=== PATIENT | male | born 1965 | race Caucasian/White ===

== ENCOUNTER 2020-05-08 18:26 | Emergency (ER) | payer MEDICAID, SELFPAY ==
--- NOTE | ~2020-05-08 | CT_ITS ---
EXAMINATION: CT abdomen pelvis w con DATE: 05/08/2020 21:45 INDICATION: Right mid abdominal pain. TECHNIQUE: Computed tomography (CT) of the abdomen and pelvis was performed with 100 mL Omnipaque-350 intravenous contrast. Automated exposure control and iterative reconstruction technique were employe d. The dose-length product was 443.76 mGy-cm. COMPARISON: None FINDINGS: Lung bases are clear. Heart size is normal. No pericardial or pleural effusion. Small sliding-type hi atal hernia with wall thickening in the distal esophagus which may be related to reflux. Subtle focal hepatic steatosis at the ligamentum teres. Gallbladder, spleen, pancreas, right kidney and right adr enal gland are normal. Unchanged 11 mm left adrenal adenoma with characteristic low attenuation on pr ior CT. 2.9 cm left renal cyst. Bowels including the appendix are normal. Bladder is distended but ot herwise unremarkable. No free intraperitoneal gas or fluid. No pathologically enlarged abdominal or p elvic lymphadenopathy. There is calcified atherosclerosis of the aorta and many of the other arteries . Mild thoracolumbar spondylosis. Mild to moderate lateral hip osteoarthritis. IMPRESSION: 1. No acute intra-abdominal/pelvic process. 2. Small sliding-type hiatal hernia with wall thickening in the distal esophagus which could be relat ed to reflux. Reviewed, dictated and finalized at location A. IMPRESSION: 1. No acute intra-abdominal/pelvic process. 2. Small sliding-type hiatal hernia with wall thickening in the distal esophagu s which could be related to reflux.
[2020-05-08 18:39] VITALS: BP 105/73; PULSE 88; RESP 16; TEMP 36.6; O2SAT 97
[2020-05-08 19:00] LABS: Basophils Percent Auto 0.5 % (0.2-1.2); Eosinophils Absolute Auto 0.1 K/mm3 (0-0.3); Eosinophils Percent Auto 1.1 % (0-4.4); Hematocrit 38.2 % (42.0-52.0); Hemoglobin 14.2 g/dL (14.0-18.0); Immature Granulocyte Absolute 0.02 K/mm3 (0.00-0.031); Immature Granulocyte Percent A 0.3 % (0-0.5); Lymphocytes Absolute Auto 2.75 K/mm3 (0.9-3.2); Lymphocytes Percent Auto 37.3 % (18.3-44.2); Mean Corpuscular HGB Conc 37.2 g/dl (32-36); Mean Corpuscular Hemoglobin 34.1 pg (26-34); Mean Corpuscular Volume 91.8 fl (80-100); Mean Platelet Volume 7.6 fl (7.4-10.4); Monocytes Absolute Auto 0.8 K/mm3 (0.1-0.6); Monocytes Percent Auto 10.7 % (2.6-8.5); Neutrophils Absolute Auto 3.7 K/mm3 (1.3-6.7); Neutrophils Percent Auto 50.1 % (45.5-73.1); Platelet Count Result 285 k/mm3 (150-375); Red Blood Count 4.16 M/mm3 (4.6-6.20); Red Cell Distribution Width 12.8 % (11.5-14.5); White Blood Count 7.4 K/mm3 (4.5-10.0)
[2020-05-08 19:03] LABS: Add Urine Microscopic? NO; Appearance Urine Clear (Clear); Bilirubin Urine Negative (Negative); Blood Urine Negative (Negative); Color Urine Colorless (Yellow); Glucose Urine UA Negative (Negative); Ketones Urine Negative (Negative); Leukocyte Esterase Ur Negative LEU/UL (Negative); Nitrate Urine Negative (Negative); Protein Urine Negative (Negative); Urobilinogen Urine Negative mg/dL (<2.0)
[2020-05-08 19:06] LABS: Specific Grav Ur 1.002 (1.001-1.035)
[2020-05-08 19:11] LABS: Alanine Aminotransferase 49 U/L (4-50); Albumin Level 4.7 g/dL (3.5-5.1); Alkaline Phosphatase 68 U/L (38-126); Anion Gap 12 mmol/L (8-16); Aspartate Amino Transferase 52 U/L (17-59); Bilirubin,Total 0.5 mg/dL (0.2-1.3); Blood Urea Nitrogen 4 mg/dL (9-20); Calcium 8.8 mg/dL (8.4-10.2); Carbon Dioxide 26 mmol/L (22-30); Chloride 88 mmol/L (98-107); Estimated CRCL calculation 137 ml/min; Estimated Glomerular Filt Rate > 60; Glucose 108 mg/dL (75-110); Lipase 229 U/L (23-300); Potassium 4.1 mmol/L (3.4-5.0); Sodium 126 mmol/L (137-145)
[2020-05-08] MEDS: MORPHINE SULFATE (*CRX) 4 MG/ML INJ IV PUSH (20:51)
--- NOTE | 2020-05-08 21:17 | ED.GENADULT ---
HPI - General Adult General Chief complaint: Nausea/Vomiting/Diarrhea Stated complaint: n/v/d Time Seen by Provider: 05/08/20 20:08 History of Present Illness HPI narrative: Patient is a 54-year-old male who presents the ER with abdominal pain as well as diarrhea for the last week. Has 3 loose stools a day and vomits 1 time a day. Reports he is recently completed alcohol rehab and then began drinking alcohol again. Symptoms began after he started drinking again. No fevers or chills or sweats. No blood in his stool or emesis. Reports pain to his right mid abdomen and right side. It is accompanied by the diarrhea. No previous history of diverticulitis or appendicitis. Related Data Home Medications Medication Instructions Recorded Confirmed hydrochlorothiazide 25 mg PO DAILY 05/08/20 05/08/20 lisinopril 40 mg PO DAILY 05/08/20 05/08/20 Allergies Allergy/AdvReac Type Severity Reaction Status Date / Time No Known Allergies Allergy Unverified 01/04/16 07:07 Review of Systems Review of Systems: All systems reviewed & are unremarkable except as noted in HPI and below Constitutional: Constitutional: Denies chills, Denies fever(s) and Denies weakness ENT: Denies nasal congestion and Denies sore throat Cardiovascular: Cardiovascular: Denies chest pain, Denies rapid heart rate and Denies radiating jaw, neck or arm pain Gastrointestinal: Gastrointestinal: Reports abdominal pain, Reports diarrhea, Reports nausea and Reports vomiting Genitourinary: Genitourinary: Denies dysuria and Denies urinary frequency PMFSH Past Medical History Medical History (Updated 05/08/20 @ 23:01 by Les Mayorga MD) Hypertension Surgical History Surgical History (Updated 05/08/20 @ 21:18 by Les Mayorga MD) H/O inguinal hernia repair Social History Social History (Updated 05/08/20 @ 21:19 by Les Mayorga MD) Alcohol intake: current Exam Narrative: Exam Narrative: GENERAL: Well-appearing, well-nourished, and in no acute distress. HEAD: Normocephalic, atraumatic. ENT: Mucous membranes moist. Normal-appearing right TM. Left ear with significant cerumen. CHEST: Clear to auscultation. No respiratory distress. HEART: Regular rate and rhythm. Normal peripheral pulses. ABDOMEN: Soft, right mid abdominal tenderness as well as epigastric tenderness without guarding, nondistended. EXTREMITIES: Normal range of motion. No edema. SKIN: Warm, dry, no rash. NEURO: Alert and oriented x3. PSYCH: Normal mood and affect. Course Course Emergency Course: Unremarkable evaluation. Patient walked out of the ER before receiving discharge paperwork. Patient was able to completely empty bladder. Vital Signs Vital signs: Vital Signs Temperature 97.9 F 05/08/20 18:39 Pulse Rate 88 05/08/20 18:39 Respiratory Rate 16 05/08/20 18:39 Blood Pressure 105/73 05/08/20 18:39 Pulse Oximetry 97 05/08/20 18:39 Temperature 97.9 F 05/08/20 18:39 Pulse Rate 78 05/08/20 22:31 Respiratory Rate 18 05/08/20 22:31 Blood Pressure 122/72 05/08/20 22:31 Pulse Oximetry 99 05/08/20 22:31 Medical Decision Making Vital Signs Vital Signs: Vital Signs Temperature 97.9 F 05/08/20 18:39 Pulse Rate 88 05/08/20 18:39 Respiratory Rate 16 05/08/20 18:39 Blood Pressure 105/73 05/08/20 18:39 Pulse Oximetry 97 05/08/20 18:39 Temperature 97.9 F 05/08/20 18:39 Pulse Rate 78 05/08/20 22:31 Respiratory Rate 18 05/08/20 22:31 Blood Pressure 122/72 05/08/20 22:31 Pulse Oximetry 99 05/08/20 22:31 Lab Data Result diagrams: 05/08/20 18:50 05/08/20 18:50 Labs: Lab Results 05/08/20 05/08/20 05/08/20 Range/Units 18:50 18:50 18:50 WBC 7.4 (4.5-10.0) K/mm3 RBC 4.16 L (4.6-6.20) M/mm3 Hgb 14.2 (14.0-18.0) g/dL Hct 38.2 L (42.0-52.0) % MCV 91.8 (80-100) fl MCH 34.1 H (26-34) pg MCHC 37.2 H (32-36) g/dl RDW 12.8
[2020-05-08 22:31] VITALS: BP 122/72; PULSE 78; RESP 18; O2SAT 99
== END 2020-05-08 23:05 | disposition left against medical advice (07) ==
PROVIDERS: Emergency Medicine; Emergency Provider Emergency Medicine; PCP Family Medicine Adolescent Medicine
DX: R19.7 Diarrhea, unspecified (principal); R10.9 Unspecified abdominal pain; K44.9 Diaphragmatic hernia without obstruction or gangrene; I10 Essential (primary) hypertension
CPT/HCPCS: 36415; 74177; 80053; 81003; 83690; 85025; 96374; 99284; J2270; Q9967

== ENCOUNTER 2020-07-10 21:30 | Observation (INO) | payer OTHER, SELFPAY ==
--- NOTE | ~2020-07-10 | XR_ITS ---
EXAMINATION: XR chest 1V portable DATE: 07/10/2020 22:02 INDICATION: 2 weeks of chest pain. Numbness in the mouth. TECHNIQUE: frontal view of the chest was obtained. COMPARISON: Chest radiograph and CT dated 01/04/2016 FINDINGS: Mild emphysema better appreciated on prior CT with unchanged mild biapical pleural-parenchymal scarri ng. No new airspace opacities, pulmonary edema, pleural effusion or pneumothorax. The cardiomediastin al silhouette is normal. Mild thoracic spondylosis. IMPRESSION: 1. No acute cardiopulmonary disease. Reviewed, dictated and finalized at location A. FORMULA WORKER
[2020-07-10 21:37] VITALS: BP 127/75; PULSE 90; RESP 18; TEMP 36.7; O2SAT 96
[2020-07-10 21:49] LABS: Basophils Percent Auto 0.4 % (0.2-1.2); Eosinophils Absolute Auto 0.2 K/mm3 (0-0.3); Hematocrit 37.7 % (42.0-52.0); Hemoglobin 13.9 g/dL (14.0-18.0); Immature Granulocyte Absolute 0.03 K/mm3 (0.00-0.031); Immature Granulocyte Percent A 0.4 % (0-0.5); Lymphocytes Absolute Auto 2.58 K/mm3 (0.9-3.2); Lymphocytes Percent Auto 34.6 % (18.3-44.2); Mean Corpuscular HGB Conc 36.9 g/dl (32-36); Mean Corpuscular Hemoglobin 35.3 pg (26-34); Mean Corpuscular Volume 95.7 fl (80-100); Mean Platelet Volume 7.6 fl (7.4-10.4); Monocytes Absolute Auto 0.7 K/mm3 (0.1-0.6); Monocytes Percent Auto 9.5 % (2.6-8.5); Neutrophils Percent Auto 53.1 % (45.5-73.1); Platelet Count Result 333 k/mm3 (150-375); Red Blood Count 3.94 M/mm3 (4.6-6.20); Red Cell Distribution Width 13.4 % (11.5-14.5); White Blood Count 7.5 K/mm3 (4.5-10.0)
--- NOTE | 2020-07-10 21:56 | ED.CHESTPAIN ---
HPI - Chest Pain General Chief Complaint: Chest Pain Stated Complaint: chest pain Time Seen by Provider: 07/10/20 21:39 Source: patient Mode of arrival: ambulatory Limitations: no limitations History of Present Illness HPI narrative: Patient is a 51-year-old male complaining of chest pain, midsternal, tightness, 5 out of 10, nonradiating, intermittent started approximately 2 weeks ago. Patient denies any shortness of breath, abdominal pain, nausea, vomiting, fever or chills. Patient does admit to drinking every day, approximately 12 beers/day. Related Data Home Medications Medication Instructions Recorded Confirmed hydrochlorothiazide 25 mg PO DAILY 05/08/20 05/08/20 lisinopril 40 mg PO DAILY 05/08/20 05/08/20 Allergies Allergy/AdvReac Type Severity Reaction Status Date / Time No Known Allergies Allergy Unverified 01/04/16 07:07 Review of Systems Review of Systems: All systems reviewed & are unremarkable except as noted in HPI and below Constitutional: Constitutional: Denies body ache(s), Denies chills, Denies excessive sweating, Denies fatigue, Denies fever(s), Denies headache(s), Denies lethargy, Denies malaise, Denies weakness and Denies weight loss Eyes: Eyes: Denies blurry vision, Denies change in vision and Denies loss of vision ENT: Denies dizziness, Denies ear discharge, Denies headache(s), Denies lip swelling, Denies epistaxis, Denies nasal congestion, Denies neck pain, Denies throat swelling and Denies tongue swelling Cardiovascular: Cardiovascular: Denies diaphoresis, Denies rapid heart rate, Denies edema, Denies irregular heart rhythm, Denies lightheadedness, Denies palpitations, Denies dyspnea and Denies dyspnea on exertion Respiratory: Respiratory: Denies chest congestion, Denies cough, Denies hemoptysis, Denies dyspnea and Denies dyspnea on exertion Gastrointestinal: Gastrointestinal: Denies abdominal pain, Denies melena, Denies hematochezia, Denies diarrhea, Denies nausea, Denies vomiting and Denies hematemesis Musculoskeletal: Musculoskeletal: Denies abnormal gait, Denies deformity, Denies joint swelling, Denies limited range of motion, Denies neck pain and Denies numbness Neurologic: Denies Abnormal speech present, Denies abnormal gait, Denies confusion, Denies dizziness, Denies headache(s), Denies focal weakness, Denies loss of vision, Denies numbness, Denies Other visual disturbances, Denies Sensory deficit (Neuro) and Denies weakness Psychiatric: Psychiatric: Denies confusion, Denies depression, Denies auditory hallucinations, Denies homicidal ideation and Denies suicidal ideation Endocrine: Endocrine: Denies cold intolerance, Denies excessive sweating, Denies fatigue, Denies heat intolerance and Denies palpitations Hematologic/Lymphatic: Hematologic/Lymphatic: Denies easy bleeding and Denies easy bruising Allergic/Immunologic: Allergic/Immunologic: Denies lip swelling, Denies throat swelling and Denies tongue swelling PMFSH Past Medical History Medical History Hypertension Surgical History Surgical History (Updated 05/08/20 @ 21:18 by Les Mayorga MD) H/O inguinal hernia repair Social History Social History Alcohol intake: current Exam Const: General: cooperative, healthy appearing, comfortable, no acute distress, well developed, alert and awake; No confusion Orientation/consciousness: oriented to person, oriented to place, oriented to time, patient oriented x3 and No confusion Limitations: no limitations HENMT: Head: normal to inspection, normocephalic and atraumatic Ears: hearing grossly normal bilaterally, TM normal on the right and TM normal on the left General nose exam: Normal external nose present, Normal nares present and No nasal discharge present Face and sinus: normal facial exam Mouth: Yes Normal oral and palatal mucosa present, Yes lip normal, Yes ton
[2020-07-10 22:13] LABS: Troponin I < 0.012 ng/mL (0.000-0.034)
[2020-07-10 22:17] LABS: INR 0.9; Partial Thromboplastin Time 24.4 SECONDS (22.3-36.8)
[2020-07-10 22:33] LABS: Alanine Aminotransferase 80 U/L (4-50); Albumin Level 4.1 g/dL (3.5-5.1); Alkaline Phosphatase 66 U/L (38-126); Anion Gap 10 mmol/L (8-16); Aspartate Amino Transferase 83 U/L (17-59); Bilirubin,Total 0.3 mg/dL (0.2-1.3); Blood Urea Nitrogen 7 mg/dL (9-20); Calcium 8.6 mg/dL (8.4-10.2); Carbon Dioxide 24 mmol/L (22-30); Chloride 86 mmol/L (98-107); Estimated CRCL calculation 115 ml/min; Estimated Glomerular Filt Rate > 60; Glucose 89 mg/dL (75-110); Potassium 3.8 mmol/L (3.4-5.0); Sodium 120 mmol/L (137-145)
[2020-07-10] MEDS: NITROGLYCERIN OINTMENT 1 INCH DOSE TRANSDERM (23:05)
[2020-07-10] MEDS: THIAMINE HCL INJ 100 MG, FOLIC ACID INJ 1 MG, MULTIVITAMINS-12 INJ VIAL 1 5 ML, MULTIVI... IV CONT (23:34)
[2020-07-11] VITALS (8 sets, daily range): BP systolic 117–138; BP diastolic 57–79; PULSE 78–99; RESP 16; TEMP 36.5–36.8; O2SAT 95–100; BMI 23.8
--- NOTE | 2020-07-11 02:15 | PC.NURSE ---
Pt. arrives to [facility] via wheelchair from ED accompanied by KIKO Berman. Pt. connected to telemetry and oriented to unit. Pt. resting in bed comfortably at this time. VSS. Will continue to monitor pt.
[2020-07-11 02:30] LABS: Troponin I < 0.012 ng/mL (0.000-0.034)
[2020-07-11] MEDS: chlordiazePOXIDE (*CRX) 10 MG CAPSULE PO (02:41)
[2020-07-11 07:07] LABS: Troponin I < 0.012 ng/mL (0.000-0.034)
--- NOTE | 2020-07-11 08:28 | PC.NURSE ---
Patient notified of risks of leaving AMA. Kimberly ADAM notified. Follow up instructions given to patient. Patient signed AMA form.
--- NOTE | 2020-07-23 15:39 | PM.IMPN ---
Subjective Date/time seen: Patient was not seen. Patient left against medical advice on 07/11/20 prior to being seen.
== END 2020-07-11 08:33 | disposition left against medical advice (07) ==
LOC: ANHED 07-11 00:23 → ANHCPC 07-11 01:19
PROVIDERS: Admitting Provider Internal Medicine; Emergency Provider Emergency Medicine; PCP Family Medicine Adolescent Medicine; Visit Provider Internal Medicine
DX: R07.9 Chest pain, unspecified (principal); I10 Essential (primary) hypertension; E87.1 Hypo-osmolality and hyponatremia; F10.10 Alcohol abuse, uncomplicated
CPT/HCPCS: 36415; 71045; 80053; 84484; 85025; 85610; 85730; 96365; 99285; A9270; G0378; G0379; J3411; J3475; J7030

== ENCOUNTER 2021-06-24 09:59 | Inpatient (IN) | payer OTHER, SELFPAY ==
[2021-06-24] VITALS (7 sets, daily range): BP systolic 102–114; BP diastolic 55–66; PULSE 83–118; RESP 18–20; TEMP 36.2–36.6; O2SAT 98–100; BMI 24.4
--- NOTE | ~2021-06-24 | US_ITS ---
EXAMINATION: US art doppler w elza CEDENO EXAM DATE: 06/25/2021 12:50 INDICATION: Lower extremity ulcers TECHNIQUE: Segmental pressures and plethysmographic and Doppler waveforms of the brachial and lower e xtremity arteries were obtained. There is no prior study for comparison. FINDINGS: Right and left brachial artery pressures of 104 mm Hg and 103 mm Hg, respectively, are concordant (no rmal difference <= 30 mmHg). The right and left thigh-brachial pressure indices are 1.38, 1.57, resp ectively (normal > 1.2). RIGHT LEG: The ankle-brachial index (HORACE) is 1.10 (normal >= 0.9-1). The great toe-brachial index (TBI) is 0.71 (normal >= 0.65). The lower extremity ratios, segmental pressure gradients as follows; Proximal superficial femoral artery:- 1.38 (143 mmHg). Distal superficial femoral artery: ----- 1.32 (137 mmHg). Popliteal: 1.08 (112 mmHg). Dorsalis pedis: 1.10 (114 mmHg). Posterior tibial: Not obtained, overlying ulcers (Normal gradients <= 20-30 mmHg between adjacent levels on the same leg or the same levels on the two legs). Arterial waveforms are biphasic through popliteal, monophas ic below. LEFT LEG: The ankle-brachial index (HORACE) is 1.26 (normal >= 0.9-1). The great toe-brachial index (TBI) is 1.15 (normal >= 0.65). The lower extremity ratios, segmental pressure gradients as follows; Proximal superficial femoral artery:- 1.57 (163 mmHg). Distal superficial femoral artery: ----- 1.29 (134 mmHg). Popliteal: 1.19 (124 mmHg). Dorsalis pedis: 1.26 (131 mmHg). Posterior tibial: 1.05 (109 mmHg). (Normal gradients <= 20-30 mmHg between adjacent levels on the same leg or the same levels on the two legs). Arterial waveforms are biphasic through popliteal, monophas ic below. IMPRESSION: 1. Right ankle-brachial index 1.10, normal. 2. Left ankle-brachial index 1.26, normal. 3. Segmental pressures as above. Reviewed, dictated and finalized at location B. NDER HEAD ASSEMBLER
--- NOTE | ~2021-06-24 | US_ITS ---
EXAMINATION: US venous doppler LE EXAM DATE: 06/25/2021 12:50 INDICATION: right lower extremity swelling, recent immobility. TECHNIQUE: Multiple grayscale, color flow and Doppler images of the lower extremity deep venous syste ms bilaterally were obtained and reviewed. There is no prior study for comparison. FINDINGS: Right side: The right common femoral, femoral and profunda veins demonstrate normal color flow, respi ratory variation, augmentation and compressibility. Compressibility, color flow confirmed within the right popliteal, posterior tibial, peroneal, and greater saphenous veins. Left side: The left common femoral, femoral and profunda veins demonstrate normal color flow, respira tory variation, augmentation and compressibility. Compressibility, color flow confirmed within the l eft popliteal, posterior tibial, peroneal, and greater saphenous veins. IMPRESSION: 1. No lower extremity deep venous thrombosis bilaterally. Reviewed, dictated and finalized at location B. CAGER
--- NOTE | ~2021-06-24 | XR_ITS ---
EXAMINATION: XR chest 1V portable EXAM DATE: 06/24/2021 11:33 INDICATION: hypotension. TECHNIQUE: Portable AP frontal chest x-ray was obtained. Comparison is made to prior examination from 07/20/2020. FINDINGS: Mild apical scarring. The lungs are otherwise clear. There are no pleural effusions. The cardiomediastinal silhouette is within normal limits. There is no pneumothorax suspected. The bones and soft tissues are unremarkable. IMPRESSION: No acute cardiopulmonary findings. Reviewed, dictated and finalized at location B. HING SUPERVISOR
--- NOTE | ~2021-06-24 | CT_ITS ---
EXAMINATION: CT LE RT w con DATE: 06/24/2021 11:42 INDICATION: Right lower limb pain and drainage. TECHNIQUE: Computed tomography (CT) of the right lower limb from the knee to the foot was performed w ith 100 mL Omnipaque 350 intravenous contrast. Automated exposure control and iterative reconstructio n technique were employed. The dose-length product was 211.19 mGy-cm. COMPARISON: None FINDINGS: Bone alignment is normal. No fracture. There is moderate osteoarthritis of medial compartme nt of the knee and mild osteoarthritis of lateral and patellofemoral compartments of the knee. There is mild osteoarthritis of some the interphalangeal joints. There is subcutaneous fat stranding in the calf and foot with a posterior predominance. There is skin irregularity and skin thickening laterall y. IMPRESSION: 1. Subcutaneous fat stranding in the calf and foot, consistent with inflammation and edema. 2. No abscess. No evidence of osteomyelitis. Reviewed, dictated and finalized at location A. AVER LETTER IMPRESSION: 1. Subcutaneous fat stranding in the calf and foot, consistent with inflammatio n and edema. 2. No abscess. No evidence of osteomyelitis.
[2021-06-24] MEDS: SODIUM CHLORIDE 0.9% IV 2,000 ML 999 ML IV CONT (10:31)
--- NOTE | 2021-06-24 10:40 | ED.GENADULT ---
HPI - General Adult General Chief complaint: Wound/Laceration Stated complaint: foot infection Time Seen by Provider: 06/24/21 10:18 Source: patient, family, EMS and RN notes reviewed Limitations: no limitations History of Present Illness HPI narrative: Patient is 55 years old white male brought to the emergency room by his daughter because of extensive ulceration and black coloration of the right lower leg below the knee for the last 2 months. Patient is alcoholic, had 9 beers prior to arrival to the emergency room, denies any trauma, fever, chills, nausea, vomiting. Patient did not seek medical attention over the last 2 months because hardheaded. Patient reports DNR, daughter at the bedside Related Data Home Medications Medication Instructions Recorded Confirmed hydrochlorothiazide 25 mg PO DAILY 05/08/20 07/11/20 lisinopril 20 mg PO DAILY 05/08/20 07/11/20 Allergies Allergy/AdvReac Type Severity Reaction Status Date / Time No Known Allergies Allergy Unverified 01/04/16 07:07 Review of Systems Review of Systems: CONSTITUTIONAL: Denies fever, chills, or sweats. EYES: Denies visual changes, redness, or discharge. ENT: Denies rhinorrhea, congestion, sore throat, or otalgia. CARDIOVASCULAR: Denies chest pain, palpitations, or edema. RESPIRATORY: Denies cough or dyspnea. GASTROINTESTINAL: Denies abdominal pain, nausea, vomiting, or diarrhea. GENITOURINARY: Denies dysuria or hematuria. SKIN: Denies rash or itching. MUSCULOSKELETAL: Reports left lower back pain NEUROLOGIC: Denies headache, numbness, or weakness. PSYCHIATRIC: Reports depression PMFSH Past Medical History Medical History Hypertension Surgical History Surgical History H/O inguinal hernia repair Family History Family History Mother Diabetes mellitus Father Myocardial infarction Social History Social History Smoking packs per day: 1.5 Smoking cigarettes per day: 30.0 Years smoked: 30 Smoking pack-years: 45.00 Smoking status: Current every day smoker Tobacco type: cigarettes Alcohol intake: current Drinks per week: 84 Substance use: never Substance use type: does not use Spiritual care concerns: No Exam Narrative: General appearance: Well-developed, well-nourished Skin: Right lower leg showed multiple ulcerations, discoloration, questionable gangrenous changes. Head: Normocephalic, nontraumatic Eyes: Clear conjunctiva ENT: Oropharynx normal, ears normal, nose normal Neck: Supple, nontender Chest and respiratory: Airway patent, no respiratory distress, no accessory muscle use Heart: Regular rate/rhythm Abdomen: Soft, nontender, no organomegaly, quiet bowel sounds Vascular: Normal peripheral pulses, normal capillary refill. Musculoskeletal: Normal range of motion, nontender back Neurologic: Alert and oriented ?3, EGG SETTER is normal as tested, no gross motor deficit Course Course Emergency Course: Stable Vital Signs Vital signs: Vital Signs Temperature 36.6 C 06/24/21 10:02 Pulse Rate 118 H 06/24/21 10:02 Respiratory Rate 20 06/24/21 10:02 Blood Pressure 105/66 06/24/21 10:02 Pulse Oximetry 100 06/24/21 10:02 Temperature 36.6 C 06/24/21 10:02 Pulse Rate 118 H 06/24/21 10:02 Respiratory Rate 20 06/24/21 10:02 Blood Pressure 105/66 06/24/21 10:02 Pulse Oximetry 100 06/24/21 10:02 Medical Decision Making [facility] Narrative Medical decision making narrative: Patient presents with pain at the right lowe
[2021-06-24 10:43] LABS: Lactic Acid Reflex 1.2 mmol/L (0.7-2.1)
[2021-06-24 10:45] LABS: Basophils Percent Auto 0.3 % (0.2-1.2); Eosinophils Absolute Auto 0.1 K/mm3 (0-0.3); Eosinophils Percent Auto 1.2 % (0-4.4); Hematocrit 24.6 % (42.0-52.0); Hemoglobin 9.1 g/dL (14.0-18.0); Immature Granulocyte Absolute 0.07 K/mm3 (0.00-0.031); Immature Granulocyte Percent A 0.6 % (0-0.5); Lymphocytes Absolute Auto 1.29 K/mm3 (0.9-3.2); Lymphocytes Percent Auto 10.8 % (18.3-44.2); Mean Corpuscular Hemoglobin 34.5 pg (26-34); Mean Corpuscular Volume 93.2 fl (80-100); Mean Platelet Volume 8.3 fl (7.4-10.4); Monocytes Absolute Auto 0.9 K/mm3 (0.1-0.6); Monocytes Percent Auto 7.7 % (2.6-8.5); Neutrophils Absolute Auto 9.5 K/mm3 (1.3-6.7); Neutrophils Percent Auto 79.4 % (45.5-73.1); Platelet Count Result 424 k/mm3 (150-375); Red Blood Count 2.64 M/mm3 (4.6-6.20); Red Cell Distribution Width 11.7 % (11.5-14.5); White Blood Count 11.9 K/mm3 (4.5-10.0)
[2021-06-24 10:53] LABS: INR 1.1; Partial Thromboplastin Time 26.6 SECONDS (22.3-36.8); Prothrombin Time 13.8 Seconds (11.1-14.7)
[2021-06-24 11:03] LABS: Alanine Aminotransferase 21 U/L (4-50); Albumin Level 3.5 g/dL (3.5-5.1); Alkaline Phosphatase 65 U/L (38-126); Anion Gap 14 mmol/L (8-16); Aspartate Amino Transferase 27 U/L (17-59); Bilirubin,Total 0.5 mg/dL (0.2-1.3); Blood Urea Nitrogen 13 mg/dL (9-20); CRP 18.8 mg/dL (<1.0); Calcium 8.5 mg/dL (8.4-10.2); Carbon Dioxide 16 mmol/L (22-30); Chloride 85 mmol/L (98-107); Estimated CRCL calculation 117 ml/min; Estimated Glomerular Filt Rate > 60; Glucose 88 mg/dL (65-110); Potassium 2.6 mmol/L (3.4-5.0); Sodium 115 mmol/L (137-145)
[2021-06-24 11:05] LABS: Ethanol 22 mg/dL (<10)
[2021-06-24 11:07] LABS: Magnesium 1.9 mg/dL (1.6-2.3)
--- NOTE | 2021-06-24 12:06 | ECG_ITS ---
Measurements Intervals [place] Rate: 90 P: 62 TN: 149 QRS: 53 QRSD: 109 T: 27 QT: 379 QTc: 465 Interpretive Statements SINUS RHYTHM ATRIAL PREMATURE COMPLEX MINIMAL Q WAVES- INFERIOR LEADS BASELINE ARTIFACT- I, III, AVR, AVL BORDERLINE ECG Electronically Signed On 06-24-2021 13:04:07 CUTLERY GRINDER by Mando Lawler D.O.
[2021-06-24] MEDS: POTASSIUM CHLORIDE 20 MEQ PACKET (FOR LIQUID) 40 MEQ PO (12:28)
[2021-06-24] MEDS: KETOROLAC 30 MG/ML VIAL (*BKC) IV PUSH (12:42)
[2021-06-24 13:09] LABS: Add Urine Microscopic? YES; Appearance Urine Clear (Clear); Bilirubin Urine Negative (Negative); Blood Urine Negative (Negative); Color Urine Yellow (Yellow); Glucose Urine UA Negative (Negative); Ketones Urine 1+ mg/dL (Negative); Leukocyte Esterase Ur Negative LEU/UL (Negative); Nitrate Urine Negative (Negative); Protein Urine Negative (Negative); RBC Urine 0-2 /hpf (0-2); Specific Grav Ur 1.019 (1.001-1.035); Urobilinogen Urine Negative mg/dL (<2.0)
[2021-06-24] MEDS: THIAMINE HCL INJ 100 MG, FOLIC ACID INJ 1 MG, MULTIVITAMINS-12 INJ VIAL 1 5 ML, MULTIVI... 500 MG IV CONT (14:16)
--- NOTE | 2021-06-24 15:25 | PM.IMHP ---
H&P: HPI History of Present Illness Date/Time: 06/24/21 15:25 Chief Complaint: Right foot wound. Narrative: This is a pleasant 55-year-old male smoker with history of hypertension, coronary artery disease with history of stent, GERD, and alcohol abuse who presented to the emergency department earlier today via EMS from home for evaluation of right foot wounds. Perhaps 2 to 3 months ago he noticed a wound on the dorsum of the right 2nd toe which he thought was perhaps due to steel toed shoes that he had been wearing. Since that time the area has become ulcerated and he has developed other areas of ulceration on the medial arch of the right foot and on the side of the right leg above the lateral malleolus. These areas have gotten progressively bigger and more painful over the past couple of weeks. He also and sources malodorous, serosanguineous drainage from the wounds. The patient tells me that he thinks he probably has gangrene and he admits that he has been too stubborn to come in for evaluation however it is now to the point where he can hardly bear weight on that limb due to severe pain. He is not certain if he has been running a fever as he does not have a thermometer at home however he does report alternating chills and sweats. His appetite has been okay. He denies paresthesias and temperature changes of the right lower leg. He also denies claudication. No recent trauma to the area. No history of MRSA or Pseudomonas infection. Review of Systems Review of Systems: Twelve systems were reviewed. He has not had a documented fever. No cold or flu symptoms. He denies sick contacts. No chest pain or shortness of breath. He denies nausea and vomiting. No diarrhea. No dysuria. No history of venous thromboembolism. He does drink daily and has had tremors if he goes too long without drinking. No history of alcohol withdrawal seizures. Except as documented, all other systems were reviewed and are negative. [facility] Past Medical History Medical History (Updated 06/24/21 @ 23:12 by Heather Jensen PA-C) Alcohol abuse Anxiety Chronic hyponatremia Coronary artery disease Hypertension Macular degeneration Tobacco dependence Surgical History Surgical History (Updated 06/24/21 @ 22:56 by Heather Jensen PA-C) History of cardiac catheterization (2015) History of heart artery stent (2016) History of inguinal hernia repair Family History Family History Mother Diabetes mellitus Father Myocardial infarction Social History Social History (Updated 06/24/21 @ 22:57 by Heather Jensen PA-C) Social History: Surrogate decision maker: Jayy Leung, son. Code status: Do not resuscitate. Smoking packs per day: 1.5 Smoking cigarettes per day: 30.0 Years smoked: 37 Smoking pack-years: 55.50 Smoking status: Current every day smoker Tobacco type: cigarettes Alcohol intake: current Alcohol use details: Drinks 12 to 15 beers a day. Substance use: never Substance use type: does not use Additional living arrangements comments: The patient lives in [place] with his brother and [id number]. Additional occupation/education comments: Currently unemployed. Meds Home Medications and Allergies Home Medications Medication Instructions Recorded Confirmed Type lisinopril 20 mg PO DAILY 05/08/20 06/24/21 History Allergies Allergy/AdvReac Type Severity Reaction Status Date / Time No Known Allergies Allergy Verified 06/24/21 16:28 Vital Signs Vital Signs - 24 hr 06/24/21 10:02 Temperature 97.9 F Pulse Rate 118 H Respiratory Rate 20 Blood Pressure 105/66 Pulse Oximetry 100 Exam Narrative: General: Well-developed male supine in bed in no acute distress. Weight: 84 kg. BMI: 24.4. HEENT: Normocephalic, atraumatic. PERRL, EOMI. Sclerae anicteric. Oral mucosa moist. Some missing teeth. Oropharynx is clear. Neck: Supple. R
--- NOTE | 2021-06-24 16:13 | ADMGEN ---
This patient, Zaire Leung, was admitted to [facility] Room [id number]. Patient/family oriented to hospital policies and general routines including ID bracelet, bed and alarms, visiting hours, pain management, procedures, bathroom and other care routines, personal items, smoking policy, room service/diet, and visiting hours. Information on how to activate the Rapid Response Team has been discussed. Patient/Family are encouraged to report perceived risks to care and to ask questions if they do not understand what they are told or what they should do.
[2021-06-24 16:51] LABS: Anion Gap 9 mmol/L (8-16); Blood Urea Nitrogen 10 mg/dL (9-20); Calcium 7.4 mg/dL (8.4-10.2); Carbon Dioxide 18 mmol/L (22-30); Chloride 95 mmol/L (98-107); Estimated CRCL calculation 117 ml/min; Estimated Glomerular Filt Rate > 60; Glucose 97 mg/dL (65-110); Magnesium 2.5 mg/dL (1.6-2.3); Potassium 2.9 mmol/L (3.4-5.0); Sodium 122 mmol/L (137-145)
[2021-06-24] MEDS: SODIUM CHLORIDE 0.9% IV 1,000 ML 125 ML IV CONT (16:58)
[2021-06-24] MEDS: POTASSIUM CHLORIDE 20 MEQ TABLET 40 MEQ PO (17:02)
[2021-06-24 17:04] LABS: Folic Acid > 20.0 ng/mL (2.76->20); Vitamin B12 > 1000.0 pg/mL (239-931)
[2021-06-24 17:17] LABS: Alveolar/Arterial O2 Gradient 25.1 mmHg; Base Excess ABG -5.6 mEq/l (+/-2.0); Carboxyhemoglobin 1.8 % THb (0-2.0); Device ROOM AIR; Fractional Inspired Oxygen 21 %; HCO3 ABG 17.7 mEq/l (22.0-26.0); Methemoglobin ABG 0.3 %THb (0-1.5); Modified Allen's Test Pass; Oxygen Content ABG 11.3 %vol (16.0-22.0); Oxygen Saturation ABG 97.4 % (95.0-100.0); Oxyhemoglobin 94.2 % THb (90.0-100.0); PO2 ABG 92.3 mmHg (80.0-100.0); Reduced Hemoglobin 3.7 %THb (0-5.0); Site Drawn RIGHT RADIAL; Total Hemoglobin 8.4 g/dL (12.0-18.0); pH ABG 7.435 (7.350-7.450)
[2021-06-24 17:23] LABS: Free T4 Free Thyroxine Reflex 1.06 ng/dL (0.78-2.19); Total Triiodothyronine (T3) 0.64 NG/ML (0.97-1.69)
[2021-06-24 17:24] LABS: Cortisol Random 9.71 ug/dL
[2021-06-24 17:26] LABS: Iron 46 ug/dL (49-181)
[2021-06-24 17:28] LABS: Percent Iron Saturation 14 % (20-50)
[2021-06-24] MEDS: MORPHINE SULFATE (*CRX) 4 MG/ML INJ IV PUSH (19:48)
[2021-06-24] MEDS: POTASSIUM CHLORIDE 20 MEQ TABLET.ER 40 MEQ PO (19:50)
[2021-06-24 20:50] LABS: Sodium 118 mmol/L (137-145)
[2021-06-24 21:02] LABS: Anion Gap 6 mmol/L (8-16); Blood Urea Nitrogen 12 mg/dL (9-20); Calcium 7.4 mg/dL (8.4-10.2); Carbon Dioxide 18 mmol/L (22-30); Chloride 95 mmol/L (98-107); Estimated CRCL calculation 117 ml/min; Estimated Glomerular Filt Rate > 60; Glucose 160 mg/dL (65-110); Potassium 4.2 mmol/L (3.4-5.0); Sodium 119 mmol/L (137-145)
[2021-06-25] VITALS (8 sets, daily range): BP systolic 90–109; BP diastolic 50–67; PULSE 80–105; RESP 16–18; TEMP 36.1–37.1; O2SAT 96–99
[2021-06-25] MEDS: MORPHINE SULFATE (*CRX) 4 MG/ML INJ IV PUSH (01:31)
[2021-06-25 03:24] LABS: Sodium 121 mmol/L (137-145)
[2021-06-25 05:29] LABS: Creatinine Urine 28.4 mg/dL
[2021-06-25 06:16] LABS: Sodium Urine Random 16 meq/L
[2021-06-25 06:41] LABS: Anion Gap 4 mmol/L (8-16); Blood Urea Nitrogen 13 mg/dL (9-20); Calcium 7.9 mg/dL (8.4-10.2); Carbon Dioxide 24 mmol/L (22-30); Chloride 97 mmol/L (98-107); Estimated CRCL calculation 135 ml/min; Estimated Glomerular Filt Rate > 60; Glucose 100 mg/dL (65-110); Potassium 3.3 mmol/L (3.4-5.0); Sodium 125 mmol/L (137-145)
[2021-06-25] MEDS: SILVERGEL (ELTA) 45 ML 1 APPLIC TOPICAL (08:38)
[2021-06-25] MEDS: NICOTINE (*PBKC) 21 MG PATCH 1 PATCH TRANSDERM (08:38)
[2021-06-25 08:49] LABS: Sodium 122 mmol/L (137-145)
--- NOTE | 2021-06-25 09:51 | PM.IMPN ---
Progress Note: A&P Assessment and Plan (1) Open wounds involving multiple regions of lower extremity: Code(s): S81.809A - Unspecified open wound, unspecified lower leg, initial encounter Status: Acute Assessment and Plan: The patient has several wounds and ulcerations of the right foot and lower leg. Most likely pressure ulcerations due to wearing steel toe boot for of long period time. Rule out vascular disease given the history of coronary artery disease alcohol abuse General surgery has evaluated no plans for debridement continue wound care. Currently on vancomycin and Zosyn. WBC count mildly elevated 11.9 will check ESR and CRP for further evaluation. CT lower extremity with subcutaneous fat stranding in the cough and foot consistent with inflammation and edema with no abscess and no evidence of osteomyelitis. Wound evaluation reveals deep skin and soft tissue infection at least to the fascial plane in some areas. (2) Hyponatremia: Code(s): E87.1 - Hypo-osmolality and hyponatremia Status: Acute Assessment and Plan: Patient has chronic hyponatremia with a sodium that typically runs in the low 120s. Admission sodium level was 115 Asymptomatic and the sodium level remains stable Likely beer potomania Continue to monitor Urine random sodium is 16 urine osmolarity is pending (3) Hypokalemia: Code(s): E87.6 - Hypokalemia Status: Acute Assessment and Plan: Potassium will be replaced and monitored. Replace K again today (4) Normocytic anemia: Code(s): D64.9 - Anemia, unspecified Status: Acute Assessment and Plan: Check iron studies as well as B12 and folates. (5) Alcohol abuse: Code(s): F10.10 - Alcohol abuse, uncomplicated Status: Acute Assessment and Plan: Initiate CIWA protocol. Librium and Ativan available as needed. He has also been started on thiamine and folic acid supplementation. (6) Tobacco dependence: Code(s): F17.200 - Nicotine dependence, unspecified, uncomplicated Status: Acute Assessment and Plan: Nicotine patch available if needed. We did not discuss smoking cessation as he needs to focus on curbing his alcohol use before quitting smoking, in my opinion. (7) Cellulitis of right leg: Code(s): L03.115 - Cellulitis of right lower limb Status: Acute Assessment and Plan: He has been started on Zosyn and vancomycin as detailed above. (8) Cellulitis of right foot: Code(s): L03.115 - Cellulitis of right lower limb Status: Acute Assessment and Plan: He has been started on Zosyn and vancomycin as detailed above. Subjective Date/time seen: 06/25/21 09:51 Interval history: HPI:This is a pleasant 55-year-old male smoker with history of hypertension, coronary artery disease with history of stent, GERD, and alcohol abuse who presented to the emergency department earlier today via EMS from home for evaluation of right foot wounds. Perhaps 2 to 3 months ago he noticed a wound on the dorsum of the right 2nd toe which he thought was perhaps due to steel toed shoes that he had been wearing. Since that time the area has become ulcerated and he has developed other areas of ulceration on the medial arch of the right foot and on the side of the right leg above the lateral malleolus. These areas have gotten progressively bigger and more painful over the past couple of weeks. He also and sources malodorous, serosanguineous drainage from the wounds. The patient tells me that he thinks he probably has gangrene and he admits that he has been too stubborn to come in for evaluation however it is now to the point where he can hardly bear weight on that limb due to severe pain. He is not certain if he has been running a fever as he does not have a thermometer at home however he does report alternating chills and sweats. His appetite has been okay. He denies paresthesias and temperatur
--- NOTE | 2021-06-25 09:52 | PM.CNGS ---
Assessment and Plan Assessment and plan (1) Open wounds involving multiple regions of lower extremity: Code(s): S81.809A - Unspecified open wound, unspecified lower leg, initial encounter Status: Acute Assessment and Plan: The patient has multiple open ulcerations of his right lower leg and foot that are from pressure and self neglect. They have been thoroughly cleaned by the wound care nurses prior to my evaluation. There are no areas of significant necrotic tissue or purulent drainage. We would recommend to treat with local wound care with silver gel dressing changes. There is no indication for surgical debridement at this time. Recommended to try and reduce pressure to these wounds as well while at rest and elevate the right lower extremity. He appears to have good arterial perfusion on exam, although arterial dopplers have been ordered. With his recent immobility, I have also ordered venous dopplers to be done while he is in radiology as well. (2) Cellulitis of right leg: Code(s): L03.115 - Cellulitis of right lower limb Status: Acute Assessment and Plan: Continue IV antibiotics and local wound care. Elevate right lower extremity while at rest. See plan above. (3) Hyponatremia: Code(s): E87.1 - Hypo-osmolality and hyponatremia Status: Acute Assessment and Plan: Severe hyponatremia on admission. Closely being monitored and managed by the Hospitalist. (4) Hypokalemia: Code(s): E87.6 - Hypokalemia Status: Acute (5) Coronary artery disease: Code(s): I25.10 - Atherosclerotic heart disease of [place] coronary artery without angina pectoris Status: Acute (6) Alcohol abuse: Code(s): F10.10 - Alcohol abuse, uncomplicated Status: Acute Assessment and Plan: Encouraged him to limit his alcohol intake or if at all possible stop drinking. We spoke about the importance of being sober and aware enough to care for his wounds after discharge. He will need to comply with wound care and follow-up to ensure his wounds progress well rather than worsen and cause other issues. (7) Tobacco dependence: Code(s): F17.200 - Nicotine dependence, unspecified, uncomplicated Status: Acute Assessment and Plan: Also discussed smoking cessation. We discussed how smoking can compromise wound healing and I recommended he work on quitting. He states he has tried in the past and has quit for as long as 4 years, but due to stress and anxiety would start smoking again. Encouraged f/u with PCP for other cessation options. Additional Plan I have discussed the patient's case and plan of care with Dr. Dubois. Thank you for allowing us to see the patient in consultation and we will continue to follow along with you. History of Present Illness Consult details Consult date: 06/25/21 Reason for consult: wound care (Multiple right lower extremity wounds) Requesting physician: Heather Jensen PA-C Narrative: This is a pleasant 55-year-old male with a history of alcohol abuse, tobacco abuse, hypertension, and coronary artery disease s/p stent in 2015, who presented to the ER via EMS for evaluation of right lower leg wounds and pain. The patient reports first noticing a blister on the dorsal aspect of his right second toe about 3 months ago that he attributed to his steel-toed work boots. Since then, the reports that this developed into an ulcer and he confesses to neglecting this wound at home when it wasn't bothering him. He also admits that he does not look at his feet daily and often times forgets to even take his boots off at night, where he may have his socks and boots on for days or weeks at a time. For the past two months, he has began to have more pain in his right lower extremity that has progressed to the point that he is no longer able to bear weight on his right foot. He has not been walking recently and this has also kept him from washing his feet for weeks
[2021-06-25 10:37] LABS: Erythrocyte Sedimentation Rate > 140 mm/hr (0-20)
[2021-06-25 11:00] LABS: CRP 15.4 mg/dL (<1.0)
[2021-06-25] MEDS: HYDROcodone/acetaminophen (*CRX) 5-325 MG TABLET 1 TAB PO ×2 (11:33→18:47)
--- NOTE | 2021-06-25 11:40 | PC.NURSE ---
Transfer to ultrasound via stretcher at 1140.
[2021-06-25 14:46] LABS: Sodium 122 mmol/L (137-145)
--- NOTE | 2021-06-25 14:46 | PC.NURSE ---
On 06/25/21, the student, Emelia Mei, provided care and completed [facility] documentation on this patient. I have reviewed the student's documentation and agree with the findings.
[2021-06-25 18:18] LABS: Sodium 116 mmol/L (137-145)
[2021-06-25] MEDS: SODIUM CHLORIDE 0.9% IV 1,000 ML 100 ML IV CONT (18:47)
[2021-06-25 20:55] LABS: Sodium 120 mmol/L (137-145)
[2021-06-25] MEDS: DEXTROSE 5%/0.45% SOD CHL 1,000 ML 100 ML IV CONT (22:16)
[2021-06-26] VITALS (18 sets, daily range): BP systolic 101–124; BP diastolic 52–69; PULSE 74–91; RESP 12–20; TEMP 36.1–36.4; O2SAT 99–100
[2021-06-26 01:49] LABS: Sodium 118 mmol/L (137-145); Vancomycin Trough 8.2 ug/mL (10.0-20.0)
[2021-06-26] MEDS: HYDROcodone/acetaminophen (*CRX) 5-325 MG TABLET 1 TAB PO ×4 (02:45→23:53)
[2021-06-26 06:34] LABS: Basophils Percent Auto 0.7 % (0.2-1.2); Eosinophils Absolute Auto 0.1 K/mm3 (0-0.3); Immature Granulocyte Absolute 0.06 K/mm3 (0.00-0.031); Lymphocytes Absolute Auto 1.52 K/mm3 (0.9-3.2); Mean Corpuscular HGB Conc 36.2 g/dl (32-36); Mean Corpuscular Hemoglobin 33.5 pg (26-34); Mean Corpuscular Volume 92.7 fl (80-100); Mean Platelet Volume 8.4 fl (7.4-10.4); Monocytes Absolute Auto 0.7 K/mm3 (0.1-0.6); Monocytes Percent Auto 10.9 % (2.6-8.5); Neutrophils Absolute Auto 3.7 K/mm3 (1.3-6.7); Neutrophils Percent Auto 60.4 % (45.5-73.1); Platelet Count Result 384 k/mm3 (150-375); Red Blood Count 1.64 M/mm3 (4.6-6.20); Red Cell Distribution Width 11.3 % (11.5-14.5); White Blood Count 6.1 K/mm3 (4.5-10.0)
[2021-06-26 06:50] LABS: Hematocrit 15.2 % (42.0-52.0); Hemoglobin 5.5 g/dL (14.0-18.0)
[2021-06-26 07:04] LABS: Anion Gap 3 mmol/L (8-16); Blood Urea Nitrogen 9 mg/dL (9-20); Calcium 7.9 mg/dL (8.4-10.2); Carbon Dioxide 29 mmol/L (22-30); Chloride 91 mmol/L (98-107); Estimated CRCL calculation 135 ml/min; Estimated Glomerular Filt Rate > 60; Glucose 107 mg/dL (65-110); Potassium 2.6 mmol/L (3.4-5.0); Sodium 123 mmol/L (137-145)
[2021-06-26 07:11] LABS: Hypochromasia 2+ (NORMAL); Microcytosis 1+ (NORMAL)
[2021-06-26 08:28] LABS: Hematocrit 16.2 % (42.0-52.0); Hemoglobin 5.9 g/dL (14.0-18.0)
[2021-06-26] MEDS: POTASSIUM CHLORIDE 20 MEQ TABLET 40 MEQ PO (08:51)
[2021-06-26] MEDS: SILVERGEL (ELTA) 45 ML 1 APPLIC TOPICAL (08:56)
[2021-06-26] MEDS: TUBING, BLOOD PLUM PUMP TUBING 1 EACH XX (08:57)
[2021-06-26] MEDS: SODIUM CHLORIDE 0.9% IV 250 ML 30 ML IV CONT (09:01)
--- NOTE | 2021-06-26 14:49 | PM.IMPN ---
Progress Note: A&P Assessment and Plan (1) Open wounds involving multiple regions of lower extremity: Code(s): S81.809A - Unspecified open wound, unspecified lower leg, initial encounter Status: Acute Assessment and Plan: The patient has several wounds and ulcerations of the right foot and lower leg. Most likely pressure ulcerations due to wearing steel toe boot for of long period time. Rule out vascular disease given the history of coronary artery disease alcohol abuse General surgery has evaluated no plans for debridement continue wound care. Currently on vancomycin and Zosyn. WBC count mildly elevated 11.9. Now normal. ESR and CRP elevated as expected CT lower extremity with subcutaneous fat stranding in the cough and foot consistent with inflammation and edema with no abscess and no evidence of osteomyelitis. Wound evaluation reveals deep skin and soft tissue infection at least to the fascial plane in some areas. (2) Hyponatremia: Code(s): E87.1 - Hypo-osmolality and hyponatremia Status: Acute Assessment and Plan: Patient has chronic hyponatremia with a sodium that typically runs in the low 120s. Admission sodium level was 115 Asymptomatic and the sodium level remains stable Likely beer potomania Continue to monitor Urine random sodium is 16 urine osmolarity is pending (3) Hypokalemia: Code(s): E87.6 - Hypokalemia Status: Acute Assessment and Plan: Potassium will be replaced and monitored. Replace K Is severely hypokalemic today will replace potassium and recheck later today (4) Normocytic anemia: Code(s): D64.9 - Anemia, unspecified Status: Acute Assessment and Plan: Check iron studies as well as B12 and folates. (5) Alcohol abuse: Code(s): F10.10 - Alcohol abuse, uncomplicated Status: Acute Assessment and Plan: Initiate CIWA protocol. Librium and Ativan available as needed. He has also been started on thiamine and folic acid supplementation. (6) Tobacco dependence: Code(s): F17.200 - Nicotine dependence, unspecified, uncomplicated Status: Acute Assessment and Plan: Nicotine patch available if needed. We did not discuss smoking cessation as he needs to focus on curbing his alcohol use before quitting smoking, in my opinion. (7) Cellulitis of right leg: Code(s): L03.115 - Cellulitis of right lower limb Status: Acute Assessment and Plan: He has been started on Zosyn and vancomycin as detailed above. (8) Cellulitis of right foot: Code(s): L03.115 - Cellulitis of right lower limb Status: Acute Assessment and Plan: He has been started on Zosyn and vancomycin as detailed above. Subjective Date/time seen: 06/26/21 14:49 Interval history: HPI:This is a pleasant 55-year-old male smoker with history of hypertension, coronary artery disease with history of stent, GERD, and alcohol abuse who presented to the emergency department earlier today via EMS from home for evaluation of right foot wounds. Perhaps 2 to 3 months ago he noticed a wound on the dorsum of the right 2nd toe which he thought was perhaps due to steel toed shoes that he had been wearing. Since that time the area has become ulcerated and he has developed other areas of ulceration on the medial arch of the right foot and on the side of the right leg above the lateral malleolus. These areas have gotten progressively bigger and more painful over the past couple of weeks. He also and sources malodorous, serosanguineous drainage from the wounds. The patient tells me that he thinks he probably has gangrene and he admits that he has been too stubborn to come in for evaluation however it is now to the point where he can hardly bear weight on that limb due to severe pain. He is not certain if he has been running a fever as he does not have a thermometer at home however he does report alternating chills and sweats
[2021-06-26] MEDS: NICOTINE (*PBKC) 21 MG PATCH 1 PATCH TRANSDERM (16:29)
[2021-06-26 18:01] LABS: Hematocrit 22.6 % (42.0-52.0); Mean Corpuscular HGB Conc 35.4 g/dl (32-36); Mean Corpuscular Hemoglobin 32.4 pg (26-34); Mean Corpuscular Volume 91.5 fl (80-100); Mean Platelet Volume 8.1 fl (7.4-10.4); Platelet Count Result 365 k/mm3 (150-375); Red Blood Count 2.47 M/mm3 (4.6-6.20); Red Cell Distribution Width 13.9 % (11.5-14.5); White Blood Count 6.5 K/mm3 (4.5-10.0)
[2021-06-26 18:18] LABS: Anion Gap 6 mmol/L (8-16); Blood Urea Nitrogen 7 mg/dL (9-20); Calcium 8.3 mg/dL (8.4-10.2); Carbon Dioxide 27 mmol/L (22-30); Chloride 88 mmol/L (98-107); Estimated CRCL calculation 135 ml/min; Estimated Glomerular Filt Rate > 60; Glucose 119 mg/dL (65-110); Magnesium 1.6 mg/dL (1.6-2.3); Sodium 121 mmol/L (137-145)
[2021-06-26 18:29] LABS: Lymphocytes Absolute Manual 1.69 K/mm3 (1.1-4.5); Lymphocytes Percent Manual 26 % (18-44); Monocytes Absolute Manual 0.45 K/mm3 (0.1-0.90); Monocytes Percent Manual 7 % (3-9); Neutrophils Percent Manual 67 % (46-73); Platelet Estimate Adequate (Adequate); Total Cells Counted 100
[2021-06-27 06:00] VITALS: BP 103/64; PULSE 70; RESP 16; TEMP 36.6; O2SAT 95
[2021-06-27 06:18] LABS: Basophils Absolute Auto 0.1 K/mm3 (0.0-0.1); Eosinophils Absolute Auto 0.2 K/mm3 (0-0.3); Eosinophils Percent Auto 3.6 % (0-4.4); Hemoglobin 7.2 g/dL (14.0-18.0); Immature Granulocyte Absolute 0.07 K/mm3 (0.00-0.031); Immature Granulocyte Percent A 1.2 % (0-0.5); Lymphocytes Absolute Auto 1.72 K/mm3 (0.9-3.2); Lymphocytes Percent Auto 29.8 % (18.3-44.2); Mean Corpuscular HGB Conc 35.6 g/dl (32-36); Mean Corpuscular Hemoglobin 32.3 pg (26-34); Mean Corpuscular Volume 90.6 fl (80-100); Mean Platelet Volume 8.4 fl (7.4-10.4); Monocytes Absolute Auto 0.5 K/mm3 (0.1-0.6); Monocytes Percent Auto 8.1 % (2.6-8.5); Neutrophils Absolute Auto 3.3 K/mm3 (1.3-6.7); Neutrophils Percent Auto 56.3 % (45.5-73.1); Platelet Count Result 364 k/mm3 (150-375); Red Blood Count 2.23 M/mm3 (4.6-6.20); Red Cell Distribution Width 14.6 % (11.5-14.5); White Blood Count 5.8 K/mm3 (4.5-10.0)
[2021-06-27 06:29] LABS: Anion Gap 3 mmol/L (8-16); Blood Urea Nitrogen 5 mg/dL (9-20); Calcium 8.1 mg/dL (8.4-10.2); Carbon Dioxide 27 mmol/L (22-30); Chloride 92 mmol/L (98-107); Estimated CRCL calculation 135 ml/min; Estimated Glomerular Filt Rate > 60; Glucose 116 mg/dL (65-110); Potassium 3.3 mmol/L (3.4-5.0); Sodium 122 mmol/L (137-145)
[2021-06-27] MEDS: HYDROcodone/acetaminophen (*CRX) 5-325 MG TABLET 1 TAB PO ×3 (06:30→19:13)
[2021-06-27 07:14] LABS: Hematocrit 20.2 % (42.0-52.0)
[2021-06-27] MEDS: NICOTINE (*PBKC) 21 MG PATCH 1 PATCH TRANSDERM (11:43)
[2021-06-27] MEDS: POTASSIUM CHLORIDE 20 MEQ TABLET 40 MEQ PO (12:31)
[2021-06-27] MEDS: SILVERGEL (ELTA) 45 ML 1 APPLIC TOPICAL (12:32)
[2021-06-27 14:00] VITALS: BP 100/66; PULSE 75; RESP 14; TEMP 36.5; O2SAT 98
--- NOTE | 2021-06-27 15:12 | PM.IMPN ---
Progress Note: A&P Assessment and Plan (1) Open wounds involving multiple regions of lower extremity: Code(s): S81.809A - Unspecified open wound, unspecified lower leg, initial encounter Status: Acute Assessment and Plan: The patient has several wounds and ulcerations of the right foot and lower leg. Most likely pressure ulcerations due to wearing steel toe boot for of long period time. Rule out vascular disease given the history of coronary artery disease alcohol abuse General surgery has evaluated no plans for debridement continue wound care. Currently on vancomycin and Zosyn. WBC count mildly elevated 11.9. Now normal. ESR and CRP elevated as expected CT lower extremity with subcutaneous fat stranding in the cough and foot consistent with inflammation and edema with no abscess and no evidence of osteomyelitis. Wound evaluation reveals deep skin and soft tissue infection at least to the fascial plane in some areas. (2) Hyponatremia: Code(s): E87.1 - Hypo-osmolality and hyponatremia Status: Acute Assessment and Plan: Patient has chronic hyponatremia with a sodium that typically runs in the low 120s. Admission sodium level was 115 Asymptomatic and the sodium level remains stable Likely beer potomania Continue to monitor Urine random sodium is 16 urine osmolarity is pending (3) Hypokalemia: Code(s): E87.6 - Hypokalemia Status: Acute Assessment and Plan: Potassium will be replaced and monitored. Replace K Is severely hypokalemic today will replace potassium and recheck later today Replace potassium (4) Normocytic anemia: Code(s): D64.9 - Anemia, unspecified Status: Acute Assessment and Plan: Iron studies with ferritin 224 suggestive of anemia chronic disease B12 and folate within normal limits FOBT pending Does need outpatient GI evaluation for chronic anemia never had colonoscopy in the past Continue PPI (5) Alcohol abuse: Code(s): F10.10 - Alcohol abuse, uncomplicated Status: Acute Assessment and Plan: Initiate CIWA protocol. Librium and Ativan available as needed. He has also been started on thiamine and folic acid supplementation. (6) Tobacco dependence: Code(s): F17.200 - Nicotine dependence, unspecified, uncomplicated Status: Acute Assessment and Plan: Nicotine patch available if needed. We did not discuss smoking cessation as he needs to focus on curbing his alcohol use before quitting smoking, in my opinion. (7) Cellulitis of right leg: Code(s): L03.115 - Cellulitis of right lower limb Status: Acute Assessment and Plan: He has been started on Zosyn and vancomycin as detailed above. (8) Cellulitis of right foot: Code(s): L03.115 - Cellulitis of right lower limb Status: Acute Assessment and Plan: He has been started on Zosyn and vancomycin as detailed above. Subjective Date/time seen: 06/27/21 15:12 Interval history: HPI:This is a pleasant 55-year-old male smoker with history of hypertension, coronary artery disease with history of stent, GERD, and alcohol abuse who presented to the emergency department earlier today via EMS from home for evaluation of right foot wounds. Perhaps 2 to 3 months ago he noticed a wound on the dorsum of the right 2nd toe which he thought was perhaps due to steel toed shoes that he had been wearing. Since that time the area has become ulcerated and he has developed other areas of ulceration on the medial arch of the right foot and on the side of the right leg above the lateral malleolus. These areas have gotten progressively bigger and more painful over the past couple of weeks. He also and sources malodorous, serosanguineous drainage from the wounds. The patient tells me that he thinks he probably has gangrene and he admits that he has been too stubborn to come in for evaluation however it is now to the point where he can pepper
[2021-06-27 15:23] LABS: Vancomycin Trough 11.9 ug/mL (10.0-20.0)
[2021-06-27 20:20] VITALS: BP 96/57; PULSE 74; RESP 18; O2SAT 100
[2021-06-27 21:39] VITALS: BP 96/57; PULSE 74; RESP 18; TEMP 37; O2SAT 100
[2021-06-27 23:18] VITALS: O2SAT 99
[2021-06-28] VITALS: BP 98/61
[2021-06-28] MEDS: HYDROcodone/acetaminophen (*CRX) 5-325 MG TABLET 1 TAB PO (00:58)
[2021-06-28 04:00] VITALS: BP 98/61
[2021-06-28 05:34] VITALS: BP 98/61; PULSE 68; RESP 18; TEMP 36.1; O2SAT 100
[2021-06-28 06:02] LABS: Osmolality, Urine 257 mOsm/kg (50-1200)
[2021-06-28 07:48] LABS: Basophils Absolute Auto 0.1 K/mm3 (0.0-0.1); Basophils Percent Auto 0.9 % (0.2-1.2); Eosinophils Absolute Auto 0.2 K/mm3 (0-0.3); Eosinophils Percent Auto 2.7 % (0-4.4); Hematocrit 22.1 % (42.0-52.0); Hemoglobin 7.8 g/dL (14.0-18.0); Immature Granulocyte Absolute 0.09 K/mm3 (0.00-0.031); Immature Granulocyte Percent A 1.3 % (0-0.5); Lymphocytes Absolute Auto 1.81 K/mm3 (0.9-3.2); Lymphocytes Percent Auto 25.8 % (18.3-44.2); Mean Corpuscular HGB Conc 35.3 g/dl (32-36); Mean Corpuscular Hemoglobin 32.4 pg (26-34); Mean Corpuscular Volume 91.7 fl (80-100); Mean Platelet Volume 8.1 fl (7.4-10.4); Monocytes Absolute Auto 0.6 K/mm3 (0.1-0.6); Monocytes Percent Auto 9.1 % (2.6-8.5); Neutrophils Absolute Auto 4.2 K/mm3 (1.3-6.7); Neutrophils Percent Auto 60.2 % (45.5-73.1); Platelet Count Result 456 k/mm3 (150-375); Red Blood Count 2.41 M/mm3 (4.6-6.20); Red Cell Distribution Width 14.6 % (11.5-14.5)
[2021-06-28 08:01] LABS: Anion Gap 4 mmol/L (8-16); Blood Urea Nitrogen 5 mg/dL (9-20); Calcium 8.5 mg/dL (8.4-10.2); Carbon Dioxide 29 mmol/L (22-30); Chloride 91 mmol/L (98-107); Estimated CRCL calculation 135 ml/min; Estimated Glomerular Filt Rate > 60; Glucose 85 mg/dL (65-110); Potassium 3.1 mmol/L (3.4-5.0); Sodium 124 mmol/L (137-145)
[2021-06-28] MEDS: NICOTINE (*PBKC) 21 MG PATCH 1 PATCH TRANSDERM (08:17)
[2021-06-28] MEDS: PANTOPRAZOLE 40 MG TABLET PO (08:17)
[2021-06-28] MEDS: SILVERGEL (ELTA) 45 ML 1 APPLIC TOPICAL (10:35)
--- NOTE | 2021-06-28 12:29 | PM.IMPN ---
Progress Note: A&P Assessment and Plan (1) Open wounds involving multiple regions of lower extremity: Code(s): S81.809A - Unspecified open wound, unspecified lower leg, initial encounter Status: Acute Assessment and Plan: The patient has several wounds and ulcerations of the right foot and lower leg. Most likely pressure ulcerations due to wearing steel toe boot for of long period time. Rule out vascular disease given the history of coronary artery disease alcohol abuse General surgery has evaluated no plans for debridement continue wound care. Currently on vancomycin and Zosyn. WBC count mildly elevated 11.9. Now normal. ESR and CRP elevated as expected CT lower extremity with subcutaneous fat stranding in the cough and foot consistent with inflammation and edema with no abscess and no evidence of osteomyelitis. Wound evaluation reveals deep skin and soft tissue infection at least to the fascial plane in some areas. Cultures has been negative will switch is vancomycin and Zosyn to clindamycin today Watch for any recurrence of fever or increased drainage with change Pain control on [place] increased to 7.5/325 q.4 hours p.r.n. (2) Hyponatremia: Code(s): E87.1 - Hypo-osmolality and hyponatremia Status: Acute Assessment and Plan: Patient has chronic hyponatremia with a sodium that typically runs in the low 120s. Admission sodium level was 115 Asymptomatic and the sodium level remains stable Likely beer potomania Continue to monitor Urine random sodium is 16 urine osmolarity is pending Sodium level has remained stable (3) Hypokalemia: Code(s): E87.6 - Hypokalemia Status: Acute Assessment and Plan: Potassium will be replaced and monitored. Replace K Is severely hypokalemic today will replace potassium and recheck later today Replace potassium (4) Normocytic anemia: Code(s): D64.9 - Anemia, unspecified Status: Acute Assessment and Plan: Iron studies with ferritin 224 suggestive of anemia chronic disease B12 and folate within normal limits FOBT pending has not been collected Does need outpatient GI evaluation for chronic anemia never had colonoscopy in the past Continue PPI H&H stable (5) Alcohol abuse: Code(s): F10.10 - Alcohol abuse, uncomplicated Status: Acute Assessment and Plan: Initiate CIWA protocol. Librium and Ativan available as needed. He has also been started on thiamine and folic acid supplementation. (6) Tobacco dependence: Code(s): F17.200 - Nicotine dependence, unspecified, uncomplicated Status: Acute Assessment and Plan: Nicotine patch available if needed. We did not discuss smoking cessation as he needs to focus on curbing his alcohol use before quitting smoking, in my opinion. (7) Cellulitis of right leg: Code(s): L03.115 - Cellulitis of right lower limb Status: Acute Assessment and Plan: He has been started on Zosyn and vancomycin as detailed above. Was switched to clindamycin today (8) Cellulitis of right foot: Code(s): L03.115 - Cellulitis of right lower limb Status: Acute Assessment and Plan: He has been started on Zosyn and vancomycin as detailed above. Additional Plan Plan for discharge tomorrow if stable along with home health wound care with home health already arranged Subjective Date/time seen: 06/28/21 12:29 Interval history: HPI:This is a pleasant 55-year-old male smoker with history of hypertension, coronary artery disease with history of stent, GERD, and alcohol abuse who presented to the emergency department earlier today via EMS from home for evaluation of right foot wounds. Perhaps 2 to 3 months ago he noticed a wound on the dorsum of the right 2nd toe which he thought was perhaps due to steel toed shoes that he had been wearing. Since that time the area has become ulcerated and he has developed other areas of ulceration o
[2021-06-28 14:00] VITALS: BP 110/73; PULSE 75; RESP 12; TEMP 36.1; O2SAT 97
[2021-06-28] MEDS: CLINDAMYCIN HCL 150 MG CAP 300 MG PO ×2 (15:31→20:58)
[2021-06-28] MEDS: HYDROcodone/acetaminophen (*CRX) 7.5-325 MG TABLET 1 TAB PO ×2 (15:34→21:06)
[2021-06-28 20:10] VITALS: BP 109/67; PULSE 70; RESP 18; O2SAT 95
[2021-06-28 22:00] VITALS: BP 109/67; PULSE 70; RESP 18; TEMP 36.6; O2SAT 95
[2021-06-29] VITALS: BP 109/67
[2021-06-29 04:00] VITALS: BP 109/67
[2021-06-29] MEDS: HYDROcodone/acetaminophen (*CRX) 7.5-325 MG TABLET 1 TAB PO ×3 (04:33→21:05)
[2021-06-29] MEDS: CLINDAMYCIN HCL 150 MG CAP 300 MG PO ×3 (05:13→21:00)
[2021-06-29 06:00] VITALS: BP 108/65; PULSE 74; RESP 18; TEMP 36.4; O2SAT 97
[2021-06-29 06:54] LABS: Basophils Absolute Auto 0.1 K/mm3 (0.0-0.1); Basophils Percent Auto 0.6 % (0.2-1.2); Eosinophils Absolute Auto 0.2 K/mm3 (0-0.3); Eosinophils Percent Auto 2.5 % (0-4.4); Hemoglobin 7.3 g/dL (14.0-18.0); Immature Granulocyte Absolute 0.09 K/mm3 (0.00-0.031); Immature Granulocyte Percent A 1.1 % (0-0.5); Lymphocytes Absolute Auto 1.66 K/mm3 (0.9-3.2); Lymphocytes Percent Auto 20.5 % (18.3-44.2); Mean Corpuscular HGB Conc 34.9 g/dl (32-36); Mean Corpuscular Hemoglobin 31.6 pg (26-34); Mean Corpuscular Volume 90.5 fl (80-100); Monocytes Absolute Auto 0.7 K/mm3 (0.1-0.6); Monocytes Percent Auto 8.3 % (2.6-8.5); Neutrophils Absolute Auto 5.4 K/mm3 (1.3-6.7); Platelet Count Result 525 k/mm3 (150-375); Red Blood Count 2.31 M/mm3 (4.6-6.20); Red Cell Distribution Width 14.4 % (11.5-14.5); White Blood Count 8.1 K/mm3 (4.5-10.0)
[2021-06-29 07:03] LABS: Hematocrit 20.9 % (42.0-52.0)
[2021-06-29 07:16] LABS: Anion Gap 5 mmol/L (8-16); Blood Urea Nitrogen 4 mg/dL (9-20); Calcium 8.7 mg/dL (8.4-10.2); Carbon Dioxide 27 mmol/L (22-30); Chloride 96 mmol/L (98-107); Estimated CRCL calculation 135 ml/min; Estimated Glomerular Filt Rate > 60; Glucose 90 mg/dL (65-110); Potassium 3.4 mmol/L (3.4-5.0); Sodium 128 mmol/L (137-145)
--- NOTE | 2021-06-29 08:31 | PM.IMPN ---
Subjective Date/time seen: 06/29/21 08:31 Objective Data Vital Signs Vital Signs: Vital Signs - 24 hr 06/28/21 14:00 06/28/21 20:10 06/28/21 22:00 Temperature 97 F L 97.8 F Pulse Rate 75 70 70 Respiratory Rate 12 18 18 Blood Pressure 110/73 109/67 109/67 Pulse Oximetry 97 95 95 06/29/21 00:00 06/29/21 04:00 06/29/21 06:00 Temperature 97.5 F L Pulse Rate 74 Respiratory Rate 18 Blood Pressure 109/67 109/67 108/65 Pulse Oximetry 97 Intake/Output Intake/Output: Intake & Output 06/26/21 06/27/21 06/28/21 06/29/21 23:59 23:59 23:59 23:59 Intake Total 5020 2950 2580 700 Output Total 5451 2180 2050 1600 Balance -431 770 530 -900 Meds/Results Medications: Active Medications Generic Name Dose Route Start Last Admin Trade Name Freq PRN Reason Stop Dose Admin Acetaminophen 650 mg 06/24/21 22:46 Acetaminophen 325 Mg Tablet PO Q6H PRN Mild Pain (1-3) or Fever Hydrocodone Bitart/Acetaminophen 1 tab 06/28/21 12:31 06/29/21 04:33 Hydrocodone/Acetaminophen (*Crx) 7.5-325 Mg Tablet PO 1 tab Q4H PRN Administration Pain Rated 7-10 Chlordiazepoxide HCl 25 mg 06/24/21 22:46 Chlordiazepoxide (*Crx) 25 Mg Capsule PO Q6H PRN Withdrawal Clindamycin HCl 300 mg 06/28/21 14:00 06/29/21 05:13 Clindamycin Hcl 150 Mg Cap PO 300 mg Q8HR BALJINDER Administration Lorazepam 1 mg 06/24/21 22:46 Lorazepam Inj (*Crx) 2 Mg/Ml Vial IV PUSH Q2H PRN CIWA 8 or greater Morphine Sulfate 2 mg 06/25/21 15:01 Morphine Sulfate (*Crx) 2 Mg/Ml Inj IV PUSH Q4H PRN Pain Rated 7-10 Nicotine 1 patch 06/25/21 09:00 06/28/21 08:17 Nicotine (*Pbkc) 21 Mg Patch TRANSDERM 1 patch QAM BALJINDER Administration Pantoprazole Sodium 40 mg 06/28/21 09:00 06/28/21 08:17 Pantoprazole 40 Mg Tablet PO 40 mg QAM BALJINDER Administration Silver Nitrate 1 applic 06/25/21 09:00 06/28/21 10:35 Silvergel (Elta) 45 Ml TOPICAL 1 applic DAILY BALJINDER Administration Wound Care/Dressing Products 3 patch 06/25/21 09:00 06/28/21 10:58 Mepilex Transfer Drsg 6x8 TOPICAL 3 patch QAM BALJINDER Administration Radiology Results: ITS Impressions Chest X-Ray 06/24/21 11:34 IMPRESSION: No acute cardiopulmonary findings. Lower Extremity CT 06/24/21 11:46 IMPRESSION: 1. Subcutaneous fat stranding in the calf and foot, consistent with inflammation and edema. 2. No abscess. No evidence of osteomyelitis. Venous Doppler Study 06/25/21 13:01 IMPRESSION: 1. No lower extremity deep venous thrombosis bilaterally. Doppler Study Ultrasound 06/25/21 13:02 IMPRESSION: 1. Right ankle-brachial index 1.10, normal. 2. Left ankle-brachial index 1.26, normal. 3. Segmental pressures as above. Labs Labs: Laboratory Results - last 24 hr 06/29/21 06/29/21 06:02 06:02 WBC 8.1 RBC 2.31 L Hgb 7.3 L Hct 20.9 L* MCV 90.5 MCH 31.6 MCHC 34.9 RDW 14.4 Plt Count 525 H MPV 8.0 Immature Gran % (Auto) 1.1 H Neut % (Auto) 67.0 Lymph % (Auto) 20.5 [place] % (Auto) 8.3 Eos % (Auto) 2.5 Baso % (Auto) 0.6 Lymph # (Auto) 1.66 [place] # (Auto) 0.7 H Eos # (Auto) 0.2 Baso # (Auto) 0.1 Abs Immat Gran (auto) 0.09 H Absolute Neuts (auto) 5.4 Absolute Nucleated RBC 0.0 Nucleated RBC % 0.0 Sodium 128 L Potassium 3.4 Chloride 96 L Carbon Dioxide 27 Anion Gap 5 L BUN 4 L Creatinine 0.60 L Estim Creat Clear Calc 135 Estimated GFR > 60 Glucose 90 Calcium 8.7 Quality VTE Prophylaxis VTE prophylaxis: pharmacologic ordered
--- NOTE | 2021-06-29 08:35 | P.DS_ITS ---
DS: Summary Time Spent with Patient Time attestation: Total time spent providing and/or coordinating discharge ser vices: DS: Data Data Completed and Pending Labs on day of discharge: Labs from last 24 hours 06/29/21 06/29/21 06:02 06:02 WBC 8.1 RBC 2.31 L Hgb 7.3 L Hct 20.9 L* MCV 90.5 MCH 31.6 MCHC 34.9 RDW 14.4 Plt Count 525 H MPV 8.0 Immature Gran % (Auto) 1.1 H Neut % (Auto) 67.0 Lymph % (Auto) 20.5 [place] % (Auto) 8.3 Eos % (Auto) 2.5 Baso % (Auto) 0.6 Lymph # (Auto) 1.66 [place] # (Auto) 0.7 H Eos # (Auto) 0.2 Baso # (Auto) 0.1 Abs Immat Gran (auto) 0.09 H Absolute Neuts (auto) 5.4 Absolute Nucleated RBC 0.0 Nucleated RBC % 0.0 Sodium 128 L Potassium 3.4 Chloride 96 L Carbon Dioxide 27 Anion Gap 5 L BUN 4 L Creatinine 0.60 L Estim Creat Clear Calc 135 Estimated GFR > 60 Glucose 90 Calcium 8.7 Preliminary micro results at discharge 06/24/21 10:21 Blood Culture - Preliminary Blood 06/24/21 10:32 Blood Culture - Preliminary Blood Discharge Plan Discharge Consulting providers: Mathew Dubois Discharge Instructions: Care Coordination. Patient to have [facility] for RN/PT/OT eval and treat [phone] please fax discharge instructions to: [phone]. Patient Instructions: Antibiotic Form, How to Stop Smoking (GEN), Pain Management (DC) Stand Alone Forms: General Discharge Information Discharge Medications: No Action lisinopril 40 mg tablet 20 mg PO DAILY RF: 0 Date of admission: 06/26/21 14:58 Primary Care Provider: Aston Chaudhari Admitting Provider: Leatha Wellington Attending physician on admission: Leatha Wellington Condition: Stable Quality VTE Prophylaxis VTE prophylaxis: pharmacologic ordered
[2021-06-29] MEDS: SILVERGEL (ELTA) 45 ML 1 APPLIC TOPICAL (08:42)
[2021-06-29] MEDS: NICOTINE (*PBKC) 21 MG PATCH 1 PATCH TRANSDERM (08:42)
[2021-06-29] MEDS: PANTOPRAZOLE 40 MG TABLET PO (08:42)
--- NOTE | 2021-06-29 09:06 | PM.IMPN ---
Progress Note: A&P Assessment and Plan (1) Open wounds involving multiple regions of lower extremity: Code(s): S81.809A - Unspecified open wound, unspecified lower leg, initial encounter Status: Acute Assessment and Plan: Local care Improved The patient has several wounds and ulcerations of the right foot and lower leg. Most likely pressure ulcerations due to wearing steel toe boot for of long period time. Rule out vascular disease given the history of coronary artery disease alcohol abuse General surgery has evaluated no plans for debridement continue wound care. Currently on vancomycin and Zosyn. WBC count mildly elevated 11.9. Now normal. ESR and CRP elevated as expected CT lower extremity with subcutaneous fat stranding in the cough and foot consistent with inflammation and edema with no abscess and no evidence of osteomyelitis. Wound evaluation reveals deep skin and soft tissue infection at least to the fascial plane in some areas. Cultures has been negative will switch is vancomycin and Zosyn to clindamycin today Watch for any recurrence of fever or increased drainage with change Pain control on [place] increased to 7.5/325 q.4 hours p.r.n. (2) Hyponatremia: Code(s): E87.1 - Hypo-osmolality and hyponatremia Status: Acute Assessment and Plan: Continue to monitor Patient has chronic hyponatremia with a sodium that typically runs in the low 120s. Admission sodium level was 115 Asymptomatic and the sodium level remains stable Likely beer potomania Continue to monitor Urine random sodium is 16 urine osmolarity is pending Sodium level has remained stable (3) Hypokalemia: Code(s): E87.6 - Hypokalemia Status: Acute Assessment and Plan: Replace as needed continue to monitor Potassium will be replaced and monitored. Replace K Is severely hypokalemic today will replace potassium and recheck later today Replace potassium (4) Normocytic anemia: Code(s): D64.9 - Anemia, unspecified Status: Acute Assessment and Plan: Patient will need evaluation in the outpatient setting patient also with known chronic alcoholism be contributing to the however MCV is within normal limits Evaluation in the outpatient setting Iron studies with ferritin 224 suggestive of anemia chronic disease B12 and folate within normal limits FOBT pending has not been collected Does need outpatient GI evaluation for chronic anemia never had colonoscopy in the past Continue PPI H&H stable (5) Alcohol abuse: Code(s): F10.10 - Alcohol abuse, uncomplicated Status: Acute Assessment and Plan: No signs of withdrawal Initiate CIWA protocol. Librium and Ativan available as needed. He has also been started on thiamine and folic acid supplementation. (6) Tobacco dependence: Code(s): F17.200 - Nicotine dependence, unspecified, uncomplicated Status: Acute Assessment and Plan: Follow-up in the outpatient setting Nicotine patch available if needed. We did not discuss smoking cessation as he needs to focus on curbing his alcohol use before quitting smoking, in my opinion. (7) Cellulitis of right leg: Code(s): L03.115 - Cellulitis of right lower limb Status: Acute Assessment and Plan: Continue clindamycin He has been started on Zosyn and vancomycin as detailed above. Was switched to clindamycin today (8) Cellulitis of right foot: Code(s): L03.115 - Cellulitis of right lower limb Status: Acute Assessment and Plan: Currently on clindamycin, local care. He has been started on Zosyn and vancomycin as detailed above. Subjective Date/time seen: 06/29/21 09:06 Review of Systems Review of Systems: All systems reviewed & are unremarkable except as noted in HPI and below (HPI) Exam Const: General: comfortable, no acute distress, well developed, alert and awake Nutritional Appearance: average body hab
[2021-06-29 14:46] VITALS: BP 108/67; PULSE 83; RESP 18; TEMP 36.6; O2SAT 96
[2021-06-29 21:05] VITALS: BP 116/75; PULSE 67; RESP 18; O2SAT 100
[2021-06-29 22:00] VITALS: BP 116/75; PULSE 67; RESP 18; TEMP 36.1; O2SAT 100
[2021-06-30] VITALS: BP 109/64
[2021-06-30 04:00] VITALS: BP 109/64
[2021-06-30 06:00] VITALS: BP 109/64; PULSE 86; RESP 18; TEMP 36.1; O2SAT 94
[2021-06-30] MEDS: CLINDAMYCIN HCL 150 MG CAP 300 MG PO ×2 (06:21→13:35)
[2021-06-30] MEDS: HYDROcodone/acetaminophen (*CRX) 7.5-325 MG TABLET 1 TAB PO (09:04)
[2021-06-30] MEDS: NICOTINE (*PBKC) 21 MG PATCH 1 PATCH TRANSDERM (09:06)
[2021-06-30] MEDS: PANTOPRAZOLE 40 MG TABLET PO (09:06)
--- NOTE | 2021-06-30 09:13 | PM.DS ---
DS: Admitting Diagnosis Discharge Date 06/30/2021 Admitting Diagnosis Open wounds involving multiple regions of lower extremity: Code(s): S81.809A - Unspecified open wound, unspecified lower leg, initial encounter Status: Acute Assessment and Plan: The patient has several wounds and ulcerations of the right foot and lower leg as detailed above. Right foot does have a good pedal pulses and the foot is warm and perfused though these do appear to be vascular ulcerations. Given the extent of the wounds I think he will need some debridement and may end up needing a skin graft at some point in time. I have consulted General surgery for their opinion regarding the wounds and recommendations for further testing for possible venous or arterial disease. He has been started on Zosyn and vancomycin. Analgesics available as needed. Wound culture pending. (2) Hyponatremia: Code(s): E87.1 - Hypo-osmolality and hyponatremia Status: Acute Assessment and Plan: Patient has chronic hyponatremia with a sodium that typically runs in the low 120s. Sodium today was 115 on arrival and he is completely asymptomatic with this. Most likely secondary to so-called beer potomania. It looks like he received at least 2 L of normal saline in the emergency department and I have since discontinued his IV fluids as he appears euvolemic. His sodium will be monitored closely to ensure that is not correcting too quickly. Check TSH, urine and serum osmolalities, as well as urine sodium and creatinine for completeness sake. (3) Hypokalemia: Code(s): E87.6 - Hypokalemia Status: Acute Assessment and Plan: Potassium will be replaced and monitored. (4) Normocytic anemia: Code(s): D64.9 - Anemia, unspecified Status: Acute Assessment and Plan: Check iron studies as well as B12 and folates. (5) Alcohol abuse: Code(s): F10.10 - Alcohol abuse, uncomplicated Status: Acute Assessment and Plan: Initiate CIWA protocol. Librium and Ativan available as needed. He has also been started on thiamine and folic acid supplementation. (6) Tobacco dependence: Code(s): F17.200 - Nicotine dependence, unspecified, uncomplicated Status: Acute Assessment and Plan: Nicotine patch available if needed. We did not discuss smoking cessation as he needs to focus on curbing his alcohol use before quitting smoking, in my opinion. (7) Cellulitis of right leg: Code(s): L03.115 - Cellulitis of right lower limb Status: Acute Assessment and Plan: He has been started on Zosyn and vancomycin as detailed above. (8) Cellulitis of right foot: Code(s): L03.115 - Cellulitis of right lower limb Status: Acute Assessment and Plan: He has been started on Zosyn and vancomycin as detailed above. DS: Discharge Diagnosis Discharge Diagnosis (1) Open wounds involving multiple regions of lower extremity: Code(s): S81.809A - Unspecified open wound, unspecified lower leg, initial encounter Status: Acute Assessment and Plan: Local care Improved The patient has several wounds and ulcerations of the right foot and lower leg. Most likely pressure ulcerations due to wearing steel toe boot for of long period time. Rule out vascular disease given the history of coronary artery disease alcohol abuse General surgery has evaluated no plans for debridement continue wound care. Currently on vancomycin and Zosyn. WBC count mildly elevated 11.9. Now normal. ESR and CRP elevated as expected CT lower extremity with subcutaneous fat stranding in the cough and foot consistent with inflammation and edema with no abscess and no evidence of osteomyelitis. Wound evaluation reveals deep skin and soft tissue infection at least to the fascial plane in some areas. Cultures has been negative will switch is vancomycin and Zosyn to clindamycin today Watch for any recurrence of
== END 2021-06-30 14:23 | disposition home health service (06) | DRG 380 ==
LOC: ANHED 12:02 → ANH3MEDSUR 15:13
PROVIDERS: Internal Medicine; Physician Assistant; Admitting Provider Internal Medicine; Emergency Provider Emergency Medicine; PCP Family Medicine Adolescent Medicine; Visit Provider Internal Medicine
DX: L89.899 Pressure ulcer of other site, unspecified stage (principal); E87.1 Hypo-osmolality and hyponatremia; E87.6 Hypokalemia; D64.9 Anemia, unspecified; F17.210 Nicotine dependence, cigarettes, uncomplicated; L03.115 Cellulitis of right lower limb; K21.9 Gastro-esophageal reflux disease without esophagitis; I10 Essential (primary) hypertension; F10.20 Alcohol dependence, uncomplicated; D63.8 Anemia in other chronic diseases classified elsewhere; Z66 Do not resuscitate; Z95.5 Presence of coronary angioplasty implant and graft; H35.30 Unspecified macular degeneration
CPT/HCPCS: 36415; 36430; 36600; 71045; 73701; 80048; 80053; 80202; 80307; 81001; 82375; 82533; 82570; 82607; 82728; 82746; 82805; 83050; 83540; 83550; 83605; 83735; 83930; 83935; 84295; 84300; 84439; 84443; 84480; 85014; 85018; 85025; 85610; 85652; 85730; 86140; 86850; 86900; 86901; 86920; 87040; 93005; 93923; 93970; 96361; 96365; 96366; 96367; 96368; 96375; 96376; 97161; 97165; 99285; A9270; G0378; G0379; J0131; J1885; J2270; J2543; J3370; J3411; J3475; J3480; J7030; J7050; P9016; Q9967

== ENCOUNTER 2021-07-30 04:32 | Inpatient (IN) | payer OTHER, SELFPAY ==
[2021-07-30] VITALS (20 sets, daily range): BP systolic 93–174; BP diastolic 54–98; PULSE 86–115; RESP 15–28; TEMP 35.9–37.4; O2SAT 95–100
[2021-07-30] MEDS: SODIUM CHLORIDE 0.9% IV 1,000 ML 999 ML IV CONT (05:41)
[2021-07-30] MEDS: PANTOPRAZOLE SODIUM IV 40 MG VIAL 80 MG IV PUSH (05:41)
--- NOTE | 2021-07-30 05:50 | ED.GIBLEED ---
HPI - GI Bleed General Chief complaint: GI Bleed Stated complaint: blood in stool since yesterday Time Seen by Provider: 07/30/21 05:22 Source: patient Mode of arrival: ambulatory Limitations: no limitations History of Present Illness HPI Narrative: Patient is a 55-year-old male complaining of blood in his stool accompanied by vomiting of blood that started yesterday. Patient states that he had one episode where he vomited blood and has not had one since 4 PM yesterday. Patient currently denies any nausea or vomiting. Patient denies any abdominal pain, chest pain, shortness of breath, fever or chills. Patient has a history of anemia and has had blood transfusion in the past, had a hemoglobin of 5.5 and 5.9 last month. Patient still admits to drinking every day, history of alcoholism. Related Data Home Medications Medication Instructions Recorded Confirmed lisinopril 20 mg PO DAILY 05/08/20 06/24/21 Allergies Allergy/AdvReac Type Severity Reaction Status Date / Time No Known Allergies Allergy Verified 06/24/21 16:28 Review of Systems Review of Systems: All systems reviewed & are unremarkable except as noted in HPI and below Constitutional: Constitutional: Denies body ache(s), Denies chills, Denies excessive sweating, Denies fatigue, Denies fever(s), Denies headache(s), Denies lethargy, Denies malaise, Reports weakness and Denies weight loss Eyes: Eyes: Denies blurry vision, Denies change in vision and Denies loss of vision ENT: Denies dizziness, Denies ear discharge, Denies headache(s), Denies lip swelling, Denies epistaxis, Denies nasal congestion, Denies neck pain, Denies throat swelling and Denies tongue swelling Cardiovascular: Cardiovascular: Denies chest pain, Denies chest pain at rest, Denies chest pain with activity, Denies diaphoresis, Denies rapid heart rate, Denies edema, Denies irregular heart rhythm, Denies lightheadedness, Denies palpitations, Denies dyspnea and Denies dyspnea on exertion Respiratory: Respiratory: Denies chest congestion, Denies cough, Denies hemoptysis, Denies dyspnea and Denies dyspnea on exertion Gastrointestinal: Gastrointestinal: Denies abdominal pain, Denies diarrhea, Denies nausea and Denies vomiting Musculoskeletal: Musculoskeletal: Denies abnormal gait, Denies deformity, Denies joint swelling, Denies limited range of motion, Denies neck pain and Denies numbness Neurologic: Denies Abnormal speech present, Denies abnormal gait, Denies confusion, Denies dizziness, Denies headache(s), Denies focal weakness, Denies loss of vision, Denies numbness, Denies Other visual disturbances, Denies Sensory deficit (Neuro) and Denies weakness Psychiatric: Psychiatric: Denies confusion, Denies depression, Denies auditory hallucinations, Denies homicidal ideation and Denies suicidal ideation Endocrine: Endocrine: Denies cold intolerance, Denies excessive sweating, Denies fatigue, Denies heat intolerance and Denies palpitations Hematologic/Lymphatic: Hematologic/Lymphatic: Denies easy bleeding and Denies easy bruising Allergic/Immunologic: Allergic/Immunologic: Denies lip swelling, Denies throat swelling and Denies tongue swelling PMFSH Past Medical History Medical History Alcohol abuse Anxiety Chronic hyponatremia Coronary artery disease Hypertension Macular degeneration Tobacco dependence Surgical History Surgical History History of cardiac catheterization (2016) History of heart artery stent (2016) History of inguinal hernia repair Family History Family History Mother Diabetes mellitus Father Myocardial infarction Social History Social History Social History: Surrogate decision maker: Jayy Leung, son. Code status: Do not resuscitate. Smoking packs per day:
[2021-07-30 05:54] LABS: Immature Granulocyte Absolute 0.06 K/mm3 (0.00-0.031); Immature Granulocyte Percent A 0.7 % (0-0.5); Mean Corpuscular HGB Conc 33.3 g/dl (32-36); Mean Corpuscular Hemoglobin 32.6 pg (26-34); Mean Corpuscular Volume 97.8 fl (80-100); Mean Platelet Volume 9.1 fl (7.4-10.4); Monocytes Absolute Auto 0.5 K/mm3 (0.1-0.6); Monocytes Percent Auto 5.9 % (2.6-8.5); Neutrophils Absolute Auto 6.3 K/mm3 (1.3-6.7); Neutrophils Percent Auto 77.4 % (45.5-73.1); Platelet Count Result 307 k/mm3 (150-375); Red Blood Count 1.81 M/mm3 (4.6-6.20); Red Cell Distribution Width 16.2 % (11.5-14.5); White Blood Count 8.1 K/mm3 (4.5-10.0)
[2021-07-30 05:55] LABS: Hematocrit 17.7 % (42.0-52.0); Hemoglobin 5.9 g/dL (14.0-18.0)
[2021-07-30 06:03] LABS: Partial Thromboplastin Time 20.4 SECONDS (22.3-36.8); Prothrombin Time 13.5 Seconds (11.1-14.7)
[2021-07-30 06:14] LABS: Alanine Aminotransferase 23 U/L (4-50); Albumin Level 3.1 g/dL (3.5-5.1); Alkaline Phosphatase 66 U/L (38-126); Anion Gap 8 mmol/L (8-16); Aspartate Amino Transferase 27 U/L (17-59); Bilirubin,Total 0.2 mg/dL (0.2-1.3); Blood Urea Nitrogen 24 mg/dL (9-20); Calcium 8.4 mg/dL (8.4-10.2); Carbon Dioxide 22 mmol/L (22-30); Chloride 97 mmol/L (98-107); Estimated CRCL calculation 117 ml/min; Estimated Glomerular Filt Rate > 60; Glucose 134 mg/dL (65-110); Potassium 4.1 mmol/L (3.4-5.0); Sodium 127 mmol/L (137-145)
--- NOTE | 2021-07-30 07:30 | PC.NURSE ---
Called pharmacy to clarify Protonix in 5% dextrose can be ran together at same site with Lactated Ringers, pharmacy ensured it is safe
[2021-07-30] MEDS: SODIUM CHLORIDE 0.9% IV 250 ML 30 ML IV CONT (08:19)
[2021-07-30] MEDS: TUBING, BLOOD SET 1 EACH XX ×2 (08:23→09:50)
[2021-07-30] MEDS: LACTATED RINGERS 1,000 ML 125 ML IV CONT (08:58)
--- NOTE | 2021-07-30 09:48 | WPDGICN ---
Assessment and Plan Assessment and plan (1) Acute gastrointestinal bleeding: Code(s): K92.2 - Gastrointestinal hemorrhage, unspecified Status: Acute Assessment and Plan: Hematemesis in addition to red bloody stools suggests bleeding from ulcer or varices or other upper gastrointestinal source. There are no indications that he has cirrhosis. His heavy use of ibuprofen suggest ulcers. He will be scheduled for EGD today after he has been transfused . He is hemodynamically stable at this time (2) Alcohol abuse: Code(s): F10.10 - Alcohol abuse, uncomplicated Status: Acute Assessment and Plan: he freely admits heavy use of beer and no immediate intention of discontinuing alcohol use. He denies having any alcohol withdrawal syndrome problems in the past (3) Cellulitis of right foot: Code(s): L03.115 - Cellulitis of right lower limb Status: Acute Assessment and Plan: he states that he missed an appointment with his physician earlier this week regarding his foot ulcer. GI Consult Note Consult date/time: 07/30/21 09:48 HPI: Zaire Leung is a 55 year old male who presents emergency room with hematemesis. He states that is also having bloody stools for the past 24 hours. He denies previous gastrointestinal bleed. However when he was hospitalized a month ago with a ulceration of his right foot. He was noted to be markedly anemic. Apparently he was transfused but there was no investigation that I can determine as to why he was anemic. He denies having an endoscopy. He has never been told that he had liver disease or cirrhosis. He does take quite a bit of ibuprofen for pain in his foot. His appetite is fair. He admits that most of his calories are beer he drinks beer daily. He has not been able to or even try to stop drinking. He denies having abdominal pain at the present time. he denies prior gastrointestinal issues. his first symptoms, before he vomited blood, was that he was very lightheaded yesterday. He denies passing out. Review of Systems Review of Systems: All systems reviewed & are unremarkable except as noted in HPI and below PMFSH Past Medical History Medical History Alcohol abuse Anxiety Chronic hyponatremia Coronary artery disease Hypertension Macular degeneration Tobacco dependence Surgical History Surgical History History of cardiac catheterization (2016) History of heart artery stent (2016) History of inguinal hernia repair Family History Family History Mother Diabetes mellitus Father Myocardial infarction Social History Social History Social History: Surrogate decision maker: Jayy Leung, son. Code status: Do not resuscitate. Smoking packs per day: 1.5 Smoking cigarettes per day: 30.0 Years smoked: 37 Smoking pack-years: 55.50 Smoking status: Current every day smoker Tobacco type: cigarettes Alcohol intake: current Alcohol use details: Drinks 12 to 15 beers a day. Substance use: never Substance use type: does not use Additional living arrangements comments: The patient lives in [place] with his brother and [id number]. Additional occupation/education comments: Currently unemployed. Meds Home Medications and Allergies Home Medications Medication Instructions Recorded Confirmed Type lisinopril 20 mg PO DAILY 05/08/20 06/24/21 History chlordiazepoxide HCl 25 mg PO Q6H PRN #10 cap 06/30/21 Rx clindamycin HCl 300 mg PO Q8HR #10 cap 06/30/21 Rx docusate calcium [Stool Softener 240 mg PO BID #30 cap 06/30/21 Rx (docusate germaine)] hydrocodone-acetaminophen 1 tablet PO Q4H PRN #30 tablet 06/30/21 Rx Allergies Allergy/AdvReac Type Severity Reaction Status Date /
[2021-07-30] MEDS: SODIUM CHLORIDE 0.9% IV 250 ML 30 ML (11:05)
[2021-07-30 13:30] LABS: Basophils Percent Auto 0.1 % (0.2-1.2); Hematocrit 22.7 % (42.0-52.0); Hemoglobin 7.6 g/dL (14.0-18.0); Immature Granulocyte Absolute 0.04 K/mm3 (0.00-0.031); Immature Granulocyte Percent A 0.4 % (0-0.5); Lymphocytes Absolute Auto 1.76 K/mm3 (0.9-3.2); Lymphocytes Percent Auto 18.7 % (18.3-44.2); Mean Corpuscular HGB Conc 33.5 g/dl (32-36); Mean Corpuscular Hemoglobin 30.3 pg (26-34); Mean Corpuscular Volume 90.4 fl (80-100); Mean Platelet Volume 8.8 fl (7.4-10.4); Monocytes Absolute Auto 0.9 K/mm3 (0.1-0.6); Monocytes Percent Auto 9.2 % (2.6-8.5); Neutrophils Absolute Auto 6.7 K/mm3 (1.3-6.7); Neutrophils Percent Auto 71.6 % (45.5-73.1); Platelet Count Result 206 k/mm3 (150-375); Red Blood Count 2.51 M/mm3 (4.6-6.20); Red Cell Distribution Width 17.9 % (11.5-14.5); White Blood Count 9.4 K/mm3 (4.5-10.0)
--- NOTE | 2021-07-30 13:45 | ADMGEN ---
This patient, Zaire Leung, was admitted to [facility] Surg Room 316-02. Patient oriented to hospital policies and general routines including ID bracelet, bed and alarms, visiting hours, pain management, procedures, bathroom and other care routines, personal items, smoking policy, room service/diet, and visiting hours. Information on how to activate the Rapid Response Team has been discussed. Patient/Family are encouraged to report perceived risks to care and to ask questions if they do not understand what they are told or what they should do.
--- NOTE | 2021-07-30 13:47 | PC.NURSE ---
Patient taken to GI lab. IVs placed on standby until return. Telemetry at bedside to be placed on patient upon return to the floor. Report given to Chnia
[2021-07-30] MEDS: LACTATED RINGERS 1,000 ML 150 ML IV CONT (13:52)
--- NOTE | 2021-07-30 14:13 | WPDANESEPPF ---
Anes - Initial Pre Proc Eval Procedure: Operation Date: 07/30/21 15:00 Proposed Procedures p Esophagogastroduodenoscopy - Ryan Sinha MD Date/Time: 07/30/21 14:13 Surgeon: Taye Ruby MD Pre Op Diagnosis: Acute GI bleed/anemia Patient Data Age: 55 Gender: M Height: 1.85 m Weight: 79.5 kg Last Vital Signs Temp 98.2 F 07/30/21 13:58 Pulse 103 H 07/30/21 13:58 Resp 16 07/30/21 13:58 BP 126/71 07/30/21 13:58 Pulse Ox 100 07/30/21 13:58 Allergies Allergy/AdvReac Type Severity Reaction Status Date / Time No Known Allergies Allergy Verified 06/24/21 16:28 Home Medications Medication Instructions Recorded Confirmed Type lisinopril 20 mg PO DAILY 05/08/20 07/30/21 History chlordiazepoxide HCl 25 mg PO Q6H PRN #10 cap 06/30/21 Rx clindamycin HCl 300 mg PO Q8HR #10 cap 06/30/21 07/30/21 Rx docusate calcium [Stool Softener 240 mg PO BID #30 cap 06/30/21 Rx (docusate germaine)] hydrocodone-acetaminophen 1 tablet PO Q4H PRN #30 tablet 06/30/21 Rx tramadol PO Q6-8H PRN 07/30/21 History Laboratory Tests 07/30/21 07/30/21 07/30/21 05:40 05:40 05:40 WBC 8.1 K/mm3 K/mm3 (4.5-10.0) RBC 1.81 M/mm3 L M/mm3 (4.6-6.20) Hgb 5.9 g/dL L* g/dL (14.0-18.0) Hct 17.7 % L* % (42.0-52.0) MCV 97.8 fl fl (80-100) MCH 32.6 pg pg (26-34) MCHC 33.3 g/dl g/dl (32-36) RDW 16.2 % H % (11.5-14.5) Plt Count 307 k/mm3 k/mm3 (150-375) MPV 9.1 fl fl (7.4-10.4) Immature Gran % (Auto) 0.7 % H % (0-0.5) Neut % (Auto) 77.4 % H % (45.5-73.1) Lymph % (Auto) 16.0 % L % (18.3-44.2) [place] % (Auto) 5.9 % % (2.6-8.5) Eos % (Auto) 0.0 % % (0-4.4) Baso % (Auto) 0.0 % L % (0.2-1.2) Lymph # (Auto) 1.30 K/mm3 K/mm3 (0.9-3.2) [place] # (Auto) 0.5 K/mm3 K/mm3 (0.1-0.6) Eos # (Auto) 0.0 K/mm3 K/mm3 (0-0.3) Baso # (Auto) 0.0 K/mm3 K/mm3 (0.0-0.1) Abs Immat Gran (auto) 0.06 K/mm3 H K/mm3 (0.00-0.031) Absolute Neuts (auto) 6.3 K/mm3 K/mm3 (1.3-6.7) Absolute Nucleated RBC 0.0 K/mm3 K/mm3 (0.0-0.012) Nucleated RBC % 0.0 % % (0.0-0.2) PT 13.5 Seconds Seconds (11.1-14.7) INR 1.0 APTT 20.4 SECONDS L SECONDS (22.3-36.8) Sodium 127 mmol/L L mmol/L (137-145) Potassium 4.1 mmol/L mmol/L (3.4-5.0) Chloride 97 mmol/L L mmol/L (98-107) Carbon Dioxide 22 mmol/L mmol/L (22-30) Anion Gap 8 mmol/L mmol/L (8-16) BUN 24 mg/dL H D mg/dL (9-20) Creatinine 0.70 mg/dL mg/dL (0.7-1.3) Estim Creat Clear Calc 117 ml/min ml/min Estimated GFR > 60 (59 - ) Glucose 134 mg/dL H mg/dL (65-110) Calcium 8.4 mg/dL mg/dL (8.4-10.2) Total Bilirubin 0.2 mg/dL mg/dL (0.2-1.3) AST 27 U/L U/L (17-59) ALT 23 U/L U/L (4-50) Alkaline Phosphatase 66 U/L U/L (38-126) Total Protein 5.0 g/dL L g/dL (6.3-8.2) Albumin 3.1 g/dL L g/dL (3.5-5.1) Blood Type Antibody Screen Crossmatch 07/30/21 07/30/21 05:40 13:24 WBC 9.4 K/mm3 K/mm3 (4.5-10.0) RBC 2.51 M/mm3 L M/mm3 (4.6-6.20) Hgb 7.6 g/dL L g/dL (14.0-18.0) Hct 22.7 % L % (42.0-52.0) MCV 90.4 fl D fl (80-100) MCH 30.3 pg D pg (26-34) MCHC 33.5 g/dl g/dl (32-36) RDW 17.9 % H % (11.5-14.5) Plt Count 206 k/mm3 k/mm3 (150-375) MPV 8.8 fl fl (7.4-10.4) Immature Gran % (Auto) 0.4 % % (0-0.5) Neut % (Auto) 71.6 % % (45.5-73.1) Lymph % (Auto) 18.7 % % (18.3-44.2) [place] % (Auto) 9.2 % H % (2.6-8.5) Eos % (Auto) 0.0 % % (0-4.4) Baso % (Auto) 0.
[2021-07-30] MEDS: EPINEPHrine INJ 1 MG/10 ML SYRINGE 4 MG XX (14:54)
--- NOTE | 2021-07-30 16:37 | PM.IMHP ---
H&P: HPI History of Present Illness Date/Time: 07/30/21 16:37 this is a 55-year-old male patient who consumes approximately 12-15 beers a day. The patient stated that he had black stools and sometimes red stools. The patient stated he had emesis with red streaks today as well. This all started yesterday with the dark stools. It started around 4:00 p.m. yesterday. The patient did not have any abdominal pain chest pain or shortness of breath. The patient has been on clindamycin for right foot wound infection. The patient has had a blood transfusion in the past. The patient's H&H is 5.9 and 17.7. Repeat H&H is 7.6 and 22.7. His sodium is 127 but that appears to be his baseline. The patient went for an EGD. Multiple crater ulcers were visualized in the distal esophagus. Reflux esophagus grade 4 Malone's esophagus. Patient had a clip placed but it was unsuccessful. Please see EGD report. The patient was given IV fluids and Protonix. The patient is being admitted to observation status on 07/30/2021. Dr. Dubois has been consulted for bleeding duodenal ulcer. Chief Complaint: GI bleed Review of Systems Review of Systems: All systems reviewed & are unremarkable except as noted in HPI and below Constitutional: Constitutional: Reports as per HPI and Reports no additional constitutional complaints Eyes: Eyes: Reports as per HPI and Reports no additional eye complaints ENT: Reports system reviewed and no additional complaints, except as documented and Reports Normal hearing present Cardiovascular: Cardiovascular: Reports no additional cardiovascular complaints Respiratory: Respiratory: Reports no additional respiratory complaints and Reports no additional respiratory complaints Gastrointestinal: Gastrointestinal: Reports as per HPI and Reports no additional gastrointestinal complaints Musculoskeletal: Musculoskeletal: Reports no additional musculoskeletal complaints Integumentary/Breasts: Skin/Breast: Reports system reviewed and no additional complaints, except as docu and Reports as per HPI Neurologic: Reports system reviewed and no additional complaints, except as documented, Reports as per HPI and Reports Normal hearing present Psychiatric: Psychiatric: Reports no additional psychiatric complaints and Reports as per HPI Endocrine: Endocrine: Reports no additional endocrine complaints Hematologic/Lymphatic: Hematologic/Lymphatic: Reports no additional hematologic/lymphatic complaints Allergic/Immunologic: Allergic/Immunologic: Reports no additional allergic/immunologic complaints [facility] Past Medical History Medical History Alcohol abuse Anxiety Chronic hyponatremia Coronary artery disease Hypertension Macular degeneration Tobacco dependence Surgical History Surgical History History of cardiac catheterization (2016) History of heart artery stent (2016) History of inguinal hernia repair Family History Family History Mother Diabetes mellitus Father Myocardial infarction Social History Social History (Updated 07/30/21 @ 16:53 by Pilar Hernandez NP) Social History: Surrogate decision maker: Cassie Hubbard The patient has 4 children. Patient lives with his brother and [id number]. The patient is unemployed. He denies any marijuana or illicit drugs at this time. The patient states that he drinks 12-15 beers a day. He smokes at least a pack a cigarettes a day. Code status: Do not resuscitate. Smoking packs per day: 1 Smoking cigarettes per day: 20.0 Years smoked: 37 Smoking pack-years: 37.00 Smoking status: Current every day smoker Tobacco type: cigarettes Alcohol intake: current Alcohol use details: Drinks 12 to 15 beers a day. Substance use: never Substance use type: does not use Additional living arrangements comme
[2021-07-30] MEDS: chlordiazePOXIDE (*CRX) 25 MG CAPSULE PO (18:18)
[2021-07-30] MEDS: NICOTINE (*PBKC) 21 MG PATCH 1 PATCH TRANSDERM (18:18)
[2021-07-30] MEDS: traMADol HCL (*CRX) 25 MG TABLET PO (18:23)
[2021-07-30] MEDS: CLINDAMYCIN HCL 150 MG CAP 300 MG PO (22:50)
[2021-07-30 23:28] LABS: Hematocrit 18.3 % (42.0-52.0); Hemoglobin 6.3 g/dL (14.0-18.0)
[2021-07-31] VITALS (17 sets, daily range): BP systolic 80–122; BP diastolic 45–81; PULSE 63–81; RESP 14–20; TEMP 35.6–37.1; O2SAT 98–100
[2021-07-31] MEDS: chlordiazePOXIDE (*CRX) 25 MG CAPSULE PO ×5 (01:54→23:53)
[2021-07-31] MEDS: CLINDAMYCIN HCL 150 MG CAP 300 MG PO ×3 (06:15→23:53)
--- NOTE | 2021-07-31 07:05 | WPDGIPROGNO ---
Progress Note: A&P Assessment and Plan (1) Acute gastrointestinal bleeding: Code(s): K92.2 - Gastrointestinal hemorrhage, unspecified Status: Acute Assessment and Plan: 07/30:Hematemesis in addition to red bloody stools suggests bleeding from ulcer or varices or other upper gastrointestinal source. There are no indications that he has cirrhosis. His heavy use of ibuprofen suggest ulcers. He will be scheduled for EGD today after he has been transfused . Blood pressure has been soft during the night. He has received 1 unit of blood and has 1 more ordered (2) Alcohol abuse: Code(s): F10.10 - Alcohol abuse, uncomplicated Status: Acute Assessment and Plan: he freely admits heavy use of beer and no immediate intention of discontinuing alcohol use. He denies having any alcohol withdrawal syndrome problems in the past. So far he is lucid and he has no asterixis 6 or other symptoms of withdrawal syndrome (3) Cellulitis of right foot: Code(s): L03.115 - Cellulitis of right lower limb Status: Acute Assessment and Plan: he states that he missed an appointment with his physician earlier this week regarding his foot ulcer. (4) Bleeding duodenal ulcer: Code(s): K26.4 - Chronic or unspecified duodenal ulcer with hemorrhage Status: Acute Assessment and Plan: so far appears that are for treatment has kept her from bleeding. I did consult surgery to have a min before just case at some point he would bleed profusely (5) Malone's esophagus: Code(s): K22.70 - Malone's esophagus without dysplasia Status: Acute Assessment and Plan: biopsies will determine whether he has Malone's. There were multiple ulcers in the distal esophagus. These may therefore be so-called Malone's ulcers. Subjective Date/time seen: 07/31/21 07:05 the patient states he is hungry. He has had no more vomiting. He denies having any stools during the night. His hemoglobin did drop to 6.3. I would order another unit of blood but I see that he had 1 during the night, and this morning hemoglobin is pending. So far is showing no signs of alcohol withdrawal syndrome. Librium seems to be holding him. Review of Systems Review of Systems: All systems reviewed & are unremarkable except as noted in HPI and below Exam Const: General: alert Orientation/consciousness: patient oriented x3 Resp: Auscultation: clear to auscultation bilaterally Cardio: Rhythm: regular rhythm GI: GI Palp: Yes Soft to palpation and No Tenderness to palpation present (GI) Neuro: General: patient oriented x3 Motor exam (neuro): No Asterixis during motor activity present Objective Data Vital Signs Vital Signs: Vital Signs - 24 hr 07/30/21 07:18 07/30/21 07:19 07/30/21 08:08 Temperature 36.9 C Pulse Rate 97 96 99 Respiratory Rate 17 15 17 Blood Pressure 113/68 113/78 Pulse Oximetry 100 100 100 07/30/21 08:33 07/30/21 08:55 07/30/21 09:46 Temperature 36.8 C 36.8 C 37.1 C Pulse Rate 96 91 91 Respiratory Rate 18 17 20 Blood Pressure 130/78 136/85 132/79 Pulse Oximetry 100 100 100 07/30/21 10:05 07/30/21 11:05 07/30/21 12:28 Temperature 36.7 C 36.9 C Pulse Rate 90 100 99 Respiratory Rate 17 18 17 Blood Pressure 131/83 174/98 H 156/71 H Pulse Oximetry 100 100 99 07/30/21 13:51 07/30/21 13:58 07/30/21 14:00 Temperature 36.8 C 36.8 C 37.4 C Pulse Rate 103 H 103 H 87 Respiratory Rate 16 16 16 Blood Pressure 126/71 126/71 120/72 Pulse Oximetry 100 100 100 07/30/21 15:03 07/30/21 15:13 07/30/21 15:23 Temperature Pulse Rate 101 H 94 91 Respiratory Rate 28 H 21 H 20 Blood Pressure 126/70 128/74 138/88 Pulse Oximetry 95 100 100 07/30/21 16:00 07/30/21 20:15 07/30/21 22:00 Temperature 37.3 C Pulse Rate 88 86 86 Respiratory Rate 16 16 Blood Pressure 93/54 L 93/54 L Pulse Oximetry 100 100 07/31/21 03:48 07/31/21 04:05 07/31/21 05:05 Tem
[2021-07-31] MEDS: FOLIC ACID 1 MG/0.2 ML INJ IV PUSH (09:58)
[2021-07-31 09:59] LABS: Basophils Percent Auto 0.5 % (0.2-1.2); Eosinophils Absolute Auto 0.1 K/mm3 (0-0.3); Hematocrit 22.1 % (42.0-52.0); Hemoglobin 7.7 g/dL (14.0-18.0); Immature Granulocyte Absolute 0.03 K/mm3 (0.00-0.031); Immature Granulocyte Percent A 0.5 % (0-0.5); Lymphocytes Absolute Auto 2.17 K/mm3 (0.9-3.2); Lymphocytes Percent Auto 36.9 % (18.3-44.2); Mean Corpuscular HGB Conc 34.8 g/dl (32-36); Mean Corpuscular Hemoglobin 31.2 pg (26-34); Mean Corpuscular Volume 89.5 fl (80-100); Mean Platelet Volume 8.8 fl (7.4-10.4); Monocytes Absolute Auto 0.5 K/mm3 (0.1-0.6); Neutrophils Absolute Auto 3.1 K/mm3 (1.3-6.7); Neutrophils Percent Auto 52.1 % (45.5-73.1); Platelet Count Result 189 k/mm3 (150-375); Red Blood Count 2.47 M/mm3 (4.6-6.20); Red Cell Distribution Width 17.9 % (11.5-14.5); White Blood Count 5.9 K/mm3 (4.5-10.0)
[2021-07-31] MEDS: lisinopriL 20 MG TABLET PO (09:59)
[2021-07-31] MEDS: THIAMINE HCL 200 MG/2 ML VIAL 100 MG IV PUSH (09:59)
[2021-07-31] MEDS: NICOTINE (*PBKC) 21 MG PATCH 1 PATCH TRANSDERM (09:59)
[2021-07-31] MEDS: traMADol HCL (*CRX) 25 MG TABLET PO ×2 (10:16→18:20)
[2021-07-31 10:22] LABS: Alanine Aminotransferase 23 U/L (4-50); Albumin Level 2.5 g/dL (3.5-5.1); Alkaline Phosphatase 52 U/L (38-126); Anion Gap 3 mmol/L (8-16); Aspartate Amino Transferase 39 U/L (17-59); Bilirubin,Total 0.6 mg/dL (0.2-1.3); Blood Urea Nitrogen 9 mg/dL (9-20); CRP 0.8 mg/dL (<1.0); Calcium 7.3 mg/dL (8.4-10.2); Carbon Dioxide 23 mmol/L (22-30); Chloride 93 mmol/L (98-107); Estimated CRCL calculation 135 ml/min; Estimated Glomerular Filt Rate > 60; Glucose 134 mg/dL (65-110); Lactate Dehydrogenase 315 U/L (313-618); Magnesium 1.8 mg/dL (1.6-2.3); Phosphorus 2.1 mg/dL (2.5-4.5); Potassium 3.4 mmol/L (3.4-5.0); Sodium 119 mmol/L (137-145)
[2021-07-31 11:07] LABS: Thyroid Stimulating Hormone Reflex 0.418 uIU/mL (0.465-4.68)
[2021-07-31 12:00] LABS: Free T4 Free Thyroxine Reflex 0.81 ng/dL (0.78-2.19)
[2021-07-31] MEDS: SILVERGEL (ELTA) 45 ML 1 APPLIC TOPICAL (12:43)
[2021-07-31] MEDS: SODIUM CHLORIDE 1 GM TABLET PO ×2 (12:43→23:54)
--- NOTE | 2021-07-31 13:06 | P.CDI_ITS ---
CDI Query Clarification Request Patient admitted with GI bleed and anemia. Bleeding dudoenal ulcer identified on EGD 07/30/21. Patient has received 3 units RBC. Please specify type and acuity of anemia: * acute blood loss * chronic blood loss * acute on chronic blood loss * iron deficiency anemia * other * unknown <NAVID Ferguson - Last Filed: 07/31/21 13:11> Clarified Diagnosis (1) Acute gastrointestinal bleeding: Code(s): K92.2 - Gastrointestinal hemorrhage, unspecified <NAVID Ferguson - Last Filed: 07/31/21 13:11> Status: Acute <NAVID Ferguson - Last Filed: 07/31/21 13:11> Assessment and Plan: acute blood loss anemia. <Leatha Wellington MD - Last Filed: 07/31/21 20:35>
[2021-07-31 13:27] LABS: Total Triiodothyronine (T3) 0.99 NG/ML (0.97-1.69)
[2021-07-31] MEDS: TUBING, BLOOD PLUM PUMP TUBING 1 EACH XX (14:08)
[2021-07-31] MEDS: TUBING, BLOOD PLUM PUMP TUBING 4 EACH XX (14:08)
[2021-07-31 14:22] LABS: Hematocrit 24.1 % (42.0-52.0); Hemoglobin 8.3 g/dL (14.0-18.0)
[2021-07-31 14:35] LABS: Sodium 118 mmol/L (137-145)
[2021-07-31 15:03] LABS: Cortisol Random 4.57 ug/dL
--- NOTE | 2021-07-31 17:31 | PM.IMPN ---
Progress Note: A&P Assessment and Plan (1) Acute gastrointestinal bleeding: Code(s): K92.2 - Gastrointestinal hemorrhage, unspecified Status: Acute Assessment and Plan: The patient had an EGD and has bleeding ulcer. Patient is on IV fluids. Currently patient advance to full liquid diet. He is being monitored closely. Repeat hemoglobin hematocrit 8.10/2410. (2) Alcohol abuse: Code(s): F10.10 - Alcohol abuse, uncomplicated Status: Chronic Assessment and Plan: ciwa. Librium, folic acid and thiamin. No evidence of withdrawal. (3) Anemia: Qualifiers: Anemia type: unspecified type Qualified Code(s): D64.9 - Anemia, unspecified Code(s): D64.9 - Anemia, unspecified Status: Acute Assessment and Plan: H&H every 6 hours transfuse when necessary. Hemoglobin stable at 8.3. Continue to monitor (4) Cellulitis of right foot: Code(s): L03.115 - Cellulitis of right lower limb Status: Acute Assessment and Plan: Continue with p.o. clindamycin. (5) Anxiety: Code(s): F41.9 - Anxiety disorder, unspecified Status: Acute Assessment and Plan: P.r.n. Ativan (6) Tobacco dependence: Code(s): F17.200 - Nicotine dependence, unspecified, uncomplicated Status: Chronic Assessment and Plan: Nicotine patch (7) Hyponatremia: Code(s): E87.1 - Hypo-osmolality and hyponatremia Status: Acute Assessment and Plan: Most likely beer potomania. Patient started on free water restriction 1800 cc/minute. In addition regions lactate was switched to normal insulin. Also started salt tablet. Repeat serum sodium was from 119-118. No seizures. Patient is on high risk of falls. Nephrology was consulted. Subjective Date/time seen: 07/31/21 16:30 Narrative:this is a 55-year-old male patient who consumes approximately 12-15 beers a day, black stools and red stools associated with emesis with red streaks. Of note, The patient has been on clindamycin for right foot wound infection. Hematemesis in addition to red bloody stools suggests bleeding from ulcer or varices or other upper gastrointestinal source. His heavy use of ibuprofen suggest ulcers. He was transfused with 2 units PRBC and underwent EGD today revealing is off ideal ulcers without bleeding, reflux esophagitis, duodenal ulcer. A single ulcer was seen in the duodenal and was losing blood. An injection of epinephrine was administered to control the bleeding. The lesion was cauterized and a clip was placed for hemostasis, but unsuccessfully. Currently patient is 24 post EGD. No recurrent episode of bleeding. S: Patient is seen and examined at the bedside he is thirsty. No active complaints. Review of Systems Review of Systems: All systems reviewed & are unremarkable except as noted in HPI and below Constitutional: Constitutional: Reports as per HPI and Reports no additional constitutional complaints Eyes: Eyes: Reports as per HPI and Reports no additional eye complaints ENT: Reports system reviewed and no additional complaints, except as documented and Reports Normal hearing present Cardiovascular: Cardiovascular: Reports no additional cardiovascular complaints Respiratory: Respiratory: Reports no additional respiratory complaints and Reports no additional respiratory complaints Gastrointestinal: Gastrointestinal: Reports as per HPI and Reports no additional gastrointestinal complaints Musculoskeletal: Musculoskeletal: Reports no additional musculoskeletal complaints Integumentary/Breasts: Skin/Breast: Reports system reviewed and no additional complaints, except as docu and Reports as per HPI Neurologic: Reports system reviewed and no additional complaints, except as documented, Reports as per HPI and Reports Normal hearing present Psychiatric: Psychiatric: Reports no additional psychiatric complaints and Reports as per HPI Endocrine: Endocrine: Repo
--- NOTE | 2021-07-31 17:44 | PM.CNGS ---
Assessment and Plan Assessment and plan (1) Bleeding duodenal ulcer: Code(s): K26.4 - Chronic or unspecified duodenal ulcer with hemorrhage Status: Acute Assessment and Plan: so far no evidence of bleeding now 24 hours after endoscopic treatment. Will follow peripherally in case bleeding should restart and cannot be controlled endoscopically. (2) Alcohol abuse: Code(s): F10.10 - Alcohol abuse, uncomplicated Status: Chronic (3) Tobacco dependence: Code(s): F17.200 - Nicotine dependence, unspecified, uncomplicated Status: Chronic History of Present Illness Consult details Consult date: 07/31/21 Reason for consult: other ( Bleeding duodenal ulcer) Requesting physician: Ryan Sinha MD Narrative: patient is a 55-year-old man with history of alcoholism. He continues to drink alcohol heavily. He was seen in the emergency room yesterday morning with bloody stools and 1 episode of bloody emesis. He was markedly anemic with hemoglobin of 5.9 and hematocrit 17.7. He was admitted for treatment. Dr. Sinha saw the patient and performed EGD. He had an actively bleeding duodenal ulcer which was injected with epinephrine and cauterized. It was too large to clip. I was asked to see the patient as he had significant GI bleeding and is at some risk to rebleed and require surgical treatment. He was seen twice today and has been comfortable, tolerating liquids and receiving blood products. He has had no bloody bowel movements or hematemesis. He has been hemodynamically stable as well. He has been on a Protonix drip as well as octreotide. I have seen the patient before. He was seen in the middle of June with extensive lower extremity ulcerations and wounds due to neglect. He was keeping his socks and boots on for days or even weeks at a time. These wounds have greatly improved. Review of Systems Review of Systems: All systems reviewed & are unremarkable except as noted in HPI and below ( HPI) Constitutional: Constitutional: Reports as per HPI Cardiovascular: Comments: history coronary disease and coronary artery stents Integumentary/Breasts: Comments: patient was seen in June with ulcerations of his lower extremities due to alcoholism and neglect Psychiatric: Comments: Alcoholism as above [facility] Past Medical History Medical History Alcohol abuse Anxiety Chronic hyponatremia Coronary artery disease Hypertension Macular degeneration Tobacco dependence Surgical History Surgical History History of cardiac catheterization (2016) History of heart artery stent (2016) History of inguinal hernia repair Family History Family History Mother Diabetes mellitus Father Myocardial infarction Social History Social History Social History: Surrogate decision maker: Cassie Hubbard The patient has 4 children. Patient lives with his brother and [id number]. The patient is unemployed. He denies any marijuana or illicit drugs at this time. The patient states that he drinks 12-15 beers a day. He smokes at least a pack a cigarettes a day. Code status: Do not resuscitate. Smoking packs per day: 1 Smoking cigarettes per day: 20.0 Years smoked: 37 Smoking pack-years: 37.00 Smoking status: Current every day smoker Tobacco type: cigarettes Alcohol intake: current Alcohol use details: Drinks 12 to 15 beers a day. Substance use: never Substance use type: does not use Additional living arrangements comments: The patient lives in [place] with his brother and [id number]. Additional occupation/education comments: Currently unemployed. Spiritual care concerns: No Meds Home Medications and Allergies Home Medications Medicat
[2021-07-31 19:00] LABS: Urea Random Urine 71 MG/DL
[2021-07-31 19:03] LABS: Sodium Urine Random 27 meq/L
[2021-07-31] MEDS: SODIUM CHLORIDE 0.9% IV 1,000 ML 100 ML IV CONT (23:47)
[2021-08-01] VITALS: PULSE 68
[2021-08-01 04:00] VITALS: PULSE 65
[2021-08-01 05:58] VITALS: BP 120/75; PULSE 65; RESP 16; TEMP 36.3; O2SAT 100
[2021-08-01] MEDS: chlordiazePOXIDE (*CRX) 25 MG CAPSULE PO ×2 (06:07→12:31)
[2021-08-01] MEDS: CLINDAMYCIN HCL 150 MG CAP 300 MG PO (06:07)
[2021-08-01 08:00] VITALS: PULSE 69
--- NOTE | 2021-08-01 08:59 | WPDGIPROGNO ---
Progress Note: A&P Assessment and Plan (1) Acute gastrointestinal bleeding: Code(s): K92.2 - Gastrointestinal hemorrhage, unspecified Status: Acute Assessment and Plan: 07/30:Hematemesis in addition to red bloody stools suggests bleeding from ulcer or varices or other upper gastrointestinal source. There are no indications that he has cirrhosis. His heavy use of ibuprofen suggest ulcers. He will be scheduled for EGD today after he has been transfused . Blood pressure has been soft during the night. He has received 1 unit of blood and has 1 more ordered 08/01 there is no further sign of bleeding. He denies dysphagia. We again discussed the fact that he cannot use NSAIDs because of the ulcer and he will need to be on a proton pump inhibitor for an extended period of time if not indefinitely. We are awaiting the biopsies. I will plan on performing a repeat EGD to assess healing in 4 weeks. I am advancing his diet. If he tolerates that and today's H&H are stable then I think he could be discharged later today (2) Alcohol abuse: Code(s): F10.10 - Alcohol abuse, uncomplicated Status: Chronic Assessment and Plan: he freely admits heavy use of beer and no immediate intention of discontinuing alcohol use. He denies having any alcohol withdrawal syndrome problems in the past. So far he is lucid and he has no asterixis 6 or other symptoms of withdrawal syndrome (3) Cellulitis of right foot: Code(s): L03.115 - Cellulitis of right lower limb Status: Acute Assessment and Plan: he states that he missed an appointment with his physician earlier this week regarding his foot ulcer. Surgery has seen him and feels that it is muchimproved (4) Bleeding duodenal ulcer: Code(s): K26.4 - Chronic or unspecified duodenal ulcer with hemorrhage Status: Acute Assessment and Plan: so far appears that are for treatment has kept her from bleeding. I did consult surgery to have a min before just case at some point he would bleed profusely (5) Malone's esophagus: Code(s): K22.70 - Malone's esophagus without dysplasia Status: Acute Assessment and Plan: biopsies will determine whether he has Malone's. There were multiple ulcers in the distal esophagus. These may therefore be so-called Malone's ulcers. Subjective Date/time seen: 08/01/21 08:59 today he feels good. There is no sign of bleeding. He would like to eat more. He showing no signs of alcohol withdrawal syndrome. Hemoglobin was 8.3 last evening. Review of Systems Review of Systems: All systems reviewed & are unremarkable except as noted in HPI and below Exam Const: General: comfortable, no acute distress and alert Nutritional Appearance: average body habitus Orientation/consciousness: patient oriented x3 HENMT: Teeth and gingiva: poor dentition Resp: Auscultation: clear to auscultation bilaterally Cardio: Rhythm: regular rhythm GI: Inspection: normal to inspection Auscultation: normal bowel sounds Neuro: General: patient oriented x3 Motor exam (neuro): No Asterixis during motor activity present Objective Data Vital Signs Vital Signs: Vital Signs - 24 hr 07/31/21 12:00 07/31/21 13:58 07/31/21 14:00 Temperature 36.6 C 36.8 C Pulse Rate 77 80 71 Respiratory Rate 16 16 Blood Pressure 122/77 102/65 Pulse Oximetry 99 100 07/31/21 14:15 07/31/21 15:15 07/31/21 16:00 Temperature 36.7 C 36.8 C Pulse Rate 81 75 79 Respiratory Rate 14 16 Blood Pressure 121/78 122/75 Pulse Oximetry 100 100 07/31/21 16:10 07/31/21 20:00 07/31/21 22:00 Temperature 36.6 C 36.7 C Pulse Rate 75 81 74 Respiratory Rate 20 18 Blood Pressure 122/81 110/64 110/64 Pulse Oximetry 98 99 08/01/21 00:00 08/01/21 04:00 08/01/21 05:58 Temperature 36.3 C L Pulse Rate 68 65 65 Respiratory Rate 16 Blood Pressure 120/75 Pulse Oximetry 100 Intake/Output Intake/
[2021-08-01 09:49] LABS: Hematocrit 28.4 % (42.0-52.0); Hemoglobin 9.7 g/dL (14.0-18.0); Mean Corpuscular HGB Conc 34.2 g/dl (32-36); Mean Corpuscular Hemoglobin 30.8 pg (26-34); Mean Corpuscular Volume 90.2 fl (80-100); Mean Platelet Volume 8.6 fl (7.4-10.4); Platelet Count Result 217 k/mm3 (150-375); Red Blood Count 3.15 M/mm3 (4.6-6.20); Red Cell Distribution Width 17.4 % (11.5-14.5); White Blood Count 5.9 K/mm3 (4.5-10.0)
--- NOTE | 2021-08-01 10:06 | PM.DS ---
DS: Admitting Diagnosis Discharge Date 08/01/2021 Admitting Diagnosis Acute GI bleed DS: Discharge Diagnosis Discharge Diagnosis (1) Acute gastrointestinal bleeding: Code(s): K92.2 - Gastrointestinal hemorrhage, unspecified Status: Acute Assessment and Plan: acute blood loss anemia. DS: Summary Hospital Course Reason for hospitalization: Acute GI bleeding Hospital Course: Patient is 55 years old male history of alcohol use, was admitted with complaint of having possible GI bleed. Patient hemoglobin was low patient hemoglobin was monitored and stabilized and transfused as needed. GI was consulted who advised to continue Protonix as an outpatient and repeat GI study as an outpatient. Today patient is stable and is able to tolerate p.o. food so patient is discharged home in stable condition follow-up scheduled with GI and primary care physician next week. Time spent discussing smoking cessation with patient: 3 to 10 minutes Status at Discharge Cognitive/behavioral status at discharge: Normal Functional status at discharge: independent ambulation Time Spent with Patient Time attestation: Total time spent providing and/or coordinating discharge services: Time spent: Less than 30 minutes Exam Const: General: cooperative, comfortable, no acute distress, alert, awake and Physically active Nutritional Appearance: thin Orientation/consciousness: oriented to person, oriented to place, oriented to time and patient oriented x3 HENMT: Head: normal to inspection Ears: hearing grossly normal bilaterally General nose exam: Normal external nose present Eyes: General: appearance normal, both eyes and all related structures Pupils: Equal, round and reactive pupils present EOM: EOMs intact bilaterally Neck: Neck: normal visual inspection Chest: Chest palpation & inspection: normal inspection of the chest Resp: Effort & Inspection: normal respiratory effort Auscultation: wheezes Cardio: Palpation: normal PMI Rate: regular rate Rhythm: regular rhythm Heart sounds: S1 normal heart sound present and S2 normal heart sound present Peripheral pulses: Peripheral pulses 2+ throughout GI: Inspection: normal to inspection Auscultation: normal bowel sounds Rectal Exam: deferred Skin: General skin exam: normal color Lesions: no lesions Rashes: no rashes Trauma: no lacerations or abrasions Wounds: no wounds Hair: normal Nails: normal Neuro: General: oriented to person, oriented to place, oriented to time and patient oriented x3 Cranial nerves: Yes Equal, round and reactive pupils present and Yes Normal hearing present Cognition (Neuro): normal cognition Speech: normal speech Extrem: General: normal to inspection Right upper extremity: normal to inspection Left upper extremity: normal to inspection Right lower extremity: normal to inspection and foot (Patient has a healing ulcerated area to right foot and heel) Left lower extremity: normal to inspection Psych: Appearance: grossly normal Mental Status: mental status grossly normal Speech and movement: Normal speech and movement present Affect: normal affect Attitude: cooperative Thought process: Normal thought process present Insight: Good insight present (Psych) Judgement: Good judgement present (Psych) DS: Data Data Completed and Pending Pending studies at discharge: Pending at discharge 07/30/21 14:59 Surgical [PTH] Routine Labs on day of discharge: Labs from last 24 hours 08/01/21 07/31/21 07/31/21 09:41 18:45 18:45 WBC 5.9 RBC 3.15 L Hgb 9.7 L Hct 28.4 L MCV 90.2 MCH 30.8 MCHC 34.2 RDW 17.4 H Plt Count 217 MPV 8.6 Sodium Potassium Chloride Carbon Dioxide Anion Gap BUN Creatinine Estim Creat Clear Calc Estimated GFR Glucose Serum Osmolality Calcium Phosphorus Magnesium Ferritin Total Bilirubin AST ALT Alkaline Phosphatase Lactate Dehydro
[2021-08-01] MEDS: FOLIC ACID 1 MG/0.2 ML INJ IV PUSH (10:08)
[2021-08-01] MEDS: NICOTINE (*PBKC) 21 MG PATCH 1 PATCH TRANSDERM (10:09)
[2021-08-01] MEDS: THIAMINE HCL 200 MG/2 ML VIAL 100 MG IV PUSH (10:09)
[2021-08-01] MEDS: SODIUM CHLORIDE 1 GM TABLET PO (10:10)
[2021-08-01] MEDS: SILVERGEL (ELTA) 45 ML 1 APPLIC TOPICAL (10:10)
[2021-08-01] MEDS: SODIUM CHLORIDE 0.9% IV 1,000 ML 100 ML IV CONT (10:20)
[2021-08-01 12:00] VITALS: PULSE 76
[2021-08-05 18:32] LABS: Osmolality, Urine 117 mOsm/kg (50-1200)
== END 2021-08-01 13:10 | disposition home or self-care (01) | DRG 241 ==
LOC: ANHED 09:02 → ANH3MEDSUR 09:05
PROVIDERS: Internal Medicine; Internal Medicine Gastroenterology; Nurse Practitioner; Admitting Provider Internal Medicine; Emergency Provider Emergency Medicine; PCP Family Medicine Adolescent Medicine; Visit Provider Internal Medicine
PROC: 0DJ08ZZ Inspection of Upper Intestinal Tract, Via Natural or Artificial Opening Endoscopic (ICD-10-PCS; CPT 43235; principal; 2021-07-30 15:00)
DX: K26.4 Chronic or unspecified duodenal ulcer with hemorrhage (principal); D62 Acute posthemorrhagic anemia; K22.10 Ulcer of esophagus without bleeding; K21.00 Gastro-esophageal reflux disease with esophagitis, without bleeding; F10.20 Alcohol dependence, uncomplicated; F17.210 Nicotine dependence, cigarettes, uncomplicated; I25.10 Atherosclerotic heart disease of native coronary artery without angina pectoris; F41.9 Anxiety disorder, unspecified; H35.30 Unspecified macular degeneration; L03.115 Cellulitis of right lower limb; E87.1 Hypo-osmolality and hyponatremia; Z95.5 Presence of coronary angioplasty implant and graft
CPT/HCPCS: 36415; 36430; 80053; 82533; 82728; 83615; 83735; 83930; 83935; 84100; 84295; 84300; 84439; 84443; 84480; 84540; 85014; 85018; 85025; 85027; 85610; 85730; 86140; 86850; 86900; 86901; 86920; 88305; 88313; 96361; 96374; 96376; 99285; A9270; C9113; J0171; J2354; J2704; J3411; J7030; J7050; J7060; J7120; P9016

== ENCOUNTER 2021-10-23 21:01 | Observation (INO) | payer OTHER, SELFPAY ==
[2021-10-23] VITALS (10 sets, daily range): BP systolic 92–121; BP diastolic 58–86; PULSE 76–90; RESP 14–23; TEMP 36.7; O2SAT 96–100
--- NOTE | ~2021-10-23 | XR_ITS ---
XR foot RT min 3V DATE: 10/23/2021 21:59 INDICATION: Worsening foot infection. History of gangrene in May 2021 TECHNIQUE: 4 views COMPARISON: 06/24/2021 CT right lower extremity FINDINGS: No fracture, dislocation or bone destruction is evident, with the exception of some erosion s may be present at the base of the proximal phalanx of the first digit and at the first tarsometatar alexandria joint. Mild hallux valgus and bunion deformity. Diffuse osteopenia. IMPRESSION: Osteopenia Small erosions at the first tarsometatarsal and metatarsophalangeal areas Mild hallux valgus and bunion deformity Reviewed, dictated and finalized at location A.
[2021-10-23 22:12] LABS: Basophils Absolute Auto 0.1 K/mm3 (0.0-0.1); Basophils Percent Auto 0.8 % (0.2-1.2); Eosinophils Absolute Auto 0.2 K/mm3 (0-0.3); Eosinophils Percent Auto 2.9 % (0-4.4); Hematocrit 33.7 % (42.0-52.0); Hemoglobin 11.8 g/dL (14.0-18.0); Immature Granulocyte Absolute 0.02 K/mm3 (0.00-0.031); Immature Granulocyte Percent A 0.3 % (0-0.5); Lymphocytes Absolute Auto 3.27 K/mm3 (0.9-3.2); Lymphocytes Percent Auto 41.8 % (18.3-44.2); Mean Corpuscular Hemoglobin 32.4 pg (26-34); Mean Corpuscular Volume 92.6 fl (80-100); Mean Platelet Volume 8.6 fl (7.4-10.4); Monocytes Absolute Auto 1.1 K/mm3 (0.1-0.6); Monocytes Percent Auto 14.5 % (2.6-8.5); Neutrophils Absolute Auto 3.1 K/mm3 (1.3-6.7); Neutrophils Percent Auto 39.7 % (45.5-73.1); Platelet Count Result 296 k/mm3 (150-375); Red Blood Count 3.64 M/mm3 (4.6-6.20); Red Cell Distribution Width 17.2 % (11.5-14.5); White Blood Count 7.8 K/mm3 (4.5-10.0)
--- NOTE | 2021-10-23 22:20 | ED.GENADULT ---
HPI - General Adult General Chief complaint: Wound/Laceration Stated complaint: RT FOOT PAIN AND ODOR Time Seen by Provider: 10/23/21 21:17 Source: patient and RN notes reviewed History of Present Illness HPI narrative: 55-year-old male with history of alcoholism wound on his right lower extremity presents to the emergency department for worsening right foot swelling and infection. Patient was diagnosed with gangrene but has been lost to follow up. Patient states he has not changed the dressing on the affected foot in approximately 1 month. Family members state that the patient has not been bathing or taking care of himself. Patient does have a significant alcohol history, patient drinks 18-20 beers a day, every day for the last 20 years. Patient does have history of alcohol withdrawal. Related Data Home Medications Medication Instructions Recorded Confirmed omeprazole 40 mg PO DAILY 08/22/21 10/24/21 Allergies Allergy/AdvReac Type Severity Reaction Status Date / Time No Known Allergies Allergy Verified 10/23/21 21:15 Review of Systems Review of Systems: CONSTITUTIONAL: Denies fever, chills, or sweats. EYES: Denies visual changes, redness, or discharge. ENT: Denies rhinorrhea, congestion, sore throat, or otalgia. CARDIOVASCULAR: Denies chest pain, palpitations, or edema. RESPIRATORY: Denies cough or dyspnea. GASTROINTESTINAL: Denies abdominal pain, nausea, vomiting, or diarrhea. GENITOURINARY: Denies dysuria or hematuria. SKIN: Worsening right lower extremity swelling MUSCULOSKELETAL: Denies back pain, joint pain, or myalgia. NEUROLOGIC: Denies headache, numbness, or weakness. [facility] Past Medical History Medical History Alcohol abuse Anxiety Chronic hyponatremia Coronary artery disease Hypertension Macular degeneration Tobacco dependence Surgical History Surgical History History of cardiac catheterization (2016) History of heart artery stent (2016) History of inguinal hernia repair Family History Family History Mother Diabetes mellitus Father Myocardial infarction Social History Social History Social History: Surrogate decision maker: Cassie Hubbard The patient has 4 children. Patient lives with his brother and [id number]. The patient is unemployed. He denies any marijuana or illicit drugs at this time. The patient states that he drinks 12-15 beers a day. He smokes at least a pack a cigarettes a day. Code status: Do not resuscitate. Smoking packs per day: 1.5 Smoking cigarettes per day: 30.0 Years smoked: 35 Smoking pack-years: 52.50 Smoking status: Current every day smoker Tobacco type: cigarettes Second hand tobacco smoke exposure: Yes Alcohol intake: current Drinks per week: 80 Alcohol use details: 10 beers a day Substance use: never Substance use type: does not use Additional living arrangements comments: The patient lives in [place] with his brother and [id number]. Additional occupation/education comments: Currently unemployed. Spiritual care concerns: No Exam Narrative: APPEARANCE: Well appearing, no pain, no distress, well-nourished. HEAD: normocephalic, atraumatic. EYES: PERRLA/EOMI, conjunctivae clear. NOSE: Normal no drainage THROAT: Pharynx clear, no exudate. NECK: Supple. No adenopathy, no masses. RESPIRATORY: Airway patent, respirations nonlabored. Clear to auscultation bilaterally, no rales, rhonchi, wheezing. CARDIOVASCULAR: Regular rate and rhythm without murmurs rubs or gallops. ABDOMINAL: Soft, nontender, nondistended, normal bowel sounds MUSCULOSKELETAL: Moves all extremities. Strength/ROM intact, No edema, No calf tenderness. NEURO: Alert. Cranial nerves II through XII intact. Good gait. Good coordination
[2021-10-23 22:22] LABS: Alanine Aminotransferase 45 U/L (4-50); Albumin Level 4.4 g/dL (3.5-5.1); Alkaline Phosphatase 74 U/L (38-126); Anion Gap 8 mmol/L (8-16); Aspartate Amino Transferase 58 U/L (17-59); Bilirubin,Total 0.5 mg/dL (0.2-1.3); Blood Urea Nitrogen 5 mg/dL (9-20); Calcium 8.3 mg/dL (8.4-10.2); Carbon Dioxide 24 mmol/L (22-30); Chloride 93 mmol/L (98-107); Estimated CRCL calculation 117 ml/min; Estimated Glomerular Filt Rate > 60; Glucose 89 mg/dL (65-110); Potassium 3.9 mmol/L (3.4-5.0); Sodium 125 mmol/L (137-145)
--- NOTE | 2021-10-23 22:22 | PC.NURSE ---
pt just informed me he drinks 15-20 beers daily for the past 25 years. Pt reports he does have withdrawals if not drinking. Had 15 beers [employer] , currently denies any withdrawal s/s at this time
--- NOTE | 2021-10-23 23:21 | PC.NURSE ---
Report received and care of pt assumed at this time
--- NOTE | 2021-10-23 23:33 | PM.IMHP ---
H&P: HPI History of Present Illness Date/Time: 10/23/21 23:33 Chief Complaint: Right leg wound. Narrative: This is a 55-year-old male with past medical history significant for alcohol dependence, hypertension, coronary artery disease, tobacco dependence, chronic hyponatremia, chronic right lower extremity wound. Patient was brought for evaluation to the emergency room after family member was concerned about self neglect, patient has not been taking care of himself has not changed his wound dressings in a long time has not been to the doctor patient drinks 15 beers a day and smokes 1 pack of cigarettes daily, has right lower extremity pain and foul odor. Patient denies any fevers, rigors, chills, night sweats, cough or sputum production. Preliminary workup was significant for sodium 125, a foot x-ray showed erosion of 1st tarsometatarsal metatarsal bones of the right foot. Decision has made to admit the patient for further evaluation, management and treatment. Review of Systems Review of Systems: Right foot and pain and follow all other discharge. Constitutional: Constitutional: Denies chills and Denies fever(s) Eyes: Eyes: Denies change in vision ENT: Denies dysphagia, Denies vertigo, Denies dizziness, Denies nasal congestion, Denies nasal discharge, Denies nasal obstruction and Denies odynophagia Cardiovascular: Cardiovascular: Denies chest pain, Denies edema, Denies radiating jaw, neck or arm pain, Denies palpitations, Denies dyspnea on exertion and Denies orthopnea Respiratory: Respiratory: Denies cough, Denies excessive phlegm production and Denies dyspnea on exertion Gastrointestinal: Gastrointestinal: Denies abdominal pain, Denies dyspepsia, Denies heartburn, Denies diarrhea and Denies nausea Genitourinary: Genitourinary: Denies dysuria and Denies flank pain Musculoskeletal: Musculoskeletal: Reports arthralgias and Reports joint swelling Integumentary/Breasts: Skin/Breast: Reports skin ulcer (Right lower extremity) Neurologic: Denies vertigo, Denies dizziness, Denies focal weakness and Denies Sensory deficit (Neuro) Psychiatric: Psychiatric: Reports no additional psychiatric complaints and Reports as per HPI Endocrine: Endocrine: Denies cold intolerance, Denies heat intolerance, Denies polydipsia and Denies palpitations Allergic/Immunologic: Allergic/Immunologic: Reports no additional allergic/immunologic complaints and Reports as per HPI [facility] Past Medical History Medical History Alcohol abuse Anxiety Chronic hyponatremia Coronary artery disease Hypertension Macular degeneration Tobacco dependence Surgical History Surgical History History of cardiac catheterization (2016) History of heart artery stent (2016) History of inguinal hernia repair Family History Family History Mother Diabetes mellitus Father Myocardial infarction Social History Social History Social History: Surrogate decision maker: Cassie Stevie The patient has 4 children. Patient lives with his brother and [id number]. The patient is unemployed. He denies any marijuana or illicit drugs at this time. The patient states that he drinks 12-15 beers a day. He smokes at least a pack a cigarettes a day. Code status: Do not resuscitate. Smoking packs per day: 1.5 Smoking cigarettes per day: 30.0 Years smoked: 35 Smoking pack-years: 52.50 Smoking status: Current every day smoker Tobacco type: cigarettes Second hand tobacco smoke exposure: Yes Alcohol intake: current Drinks per week: 80 Alcohol use details: 10 beers a day Substance use: never Substance use type: does not use Additional living arrangements comments: The patient lives in [place] with his brother and [id number]. Addition
[2021-10-23] MEDS: SODIUM CHLORIDE 0.9% IV 1,000 ML 999 ML IV CONT (23:41)
[2021-10-24] VITALS (14 sets, daily range): BP systolic 90–134; BP diastolic 55–85; PULSE 71–106; RESP 16–18; TEMP 35.8–36.6; O2SAT 95–100; BMI 23.2
--- NOTE | 2021-10-24 00:23 | ADMGEN ---
This patient, Zaire Leung, was admitted to [facility] Room 214-01 on 10/24/21 at 0015. Patient/family oriented to hospital policies and general routines including ID bracelet, bed and alarms, visiting hours, pain management, procedures, bathroom and other care routines, personal items, smoking policy, room service/diet, and visiting hours. Information on how to activate the Rapid Response Team has been discussed. Patient/Family are encouraged to report perceived risks to care and to ask questions if they do not understand what they are told or what they should do.
[2021-10-24] MEDS: HYDROmorphone HCL INJ (*CRX) 1 MG/ML SYR 0.5 MG IV PUSH ×2 (00:42→04:51)
[2021-10-24] MEDS: PANTOPRAZOLE 40 MG TABLET PO (09:29)
[2021-10-24] MEDS: lisinopriL 20 MG TABLET PO (09:29)
[2021-10-24 10:28] LABS: Hematocrit 31.4 % (42.0-52.0); Hemoglobin 11.1 g/dL (14.0-18.0); Mean Corpuscular HGB Conc 35.4 g/dl (32-36); Mean Corpuscular Hemoglobin 31.9 pg (26-34); Mean Corpuscular Volume 90.2 fl (80-100); Mean Platelet Volume 8.1 fl (7.4-10.4); Platelet Count Result 270 k/mm3 (150-375); Red Blood Count 3.48 M/mm3 (4.6-6.20); Red Cell Distribution Width 17.3 % (11.5-14.5)
[2021-10-24 10:38] LABS: Alanine Aminotransferase 46 U/L (4-50); Albumin Level 3.8 g/dL (3.5-5.1); Alkaline Phosphatase 62 U/L (38-126); Anion Gap 4 mmol/L (8-16); Aspartate Amino Transferase 81 U/L (17-59); Bilirubin,Total 0.3 mg/dL (0.2-1.3); Blood Urea Nitrogen 3 mg/dL (9-20); Calcium 8.1 mg/dL (8.4-10.2); Carbon Dioxide 28 mmol/L (22-30); Chloride 98 mmol/L (98-107); Estimated CRCL calculation 118 ml/min; Estimated Glomerular Filt Rate > 60; Glucose 84 mg/dL (65-110); Magnesium 2.1 mg/dL (1.6-2.3); Potassium 4.6 mmol/L (3.4-5.0); Sodium 130 mmol/L (137-145)
--- NOTE | 2021-10-24 11:05 | PCCCNOTE ---
On 10/24/21, the student, [Marianne Hsu], provided care and completed [facility] documentation on this patient. I have reviewed the student's documentation and agree with the findings.
[2021-10-24] MEDS: NICOTINE (*PBKC) 21 MG PATCH 1 PATCH TRANSDERM (12:07)
[2021-10-24] MEDS: chlordiazePOXIDE (*CRX) 25 MG CAPSULE PO ×2 (12:08→18:02)
[2021-10-24] MEDS: SILVERGEL (ELTA) 45 ML 1 APPLIC TOPICAL (15:48)
[2021-10-24] MEDS: ACETAMINOPHEN 325 MG TABLET 650 MG PO ×2 (16:00→21:47)
--- NOTE | 2021-10-24 17:43 | PC.NURSE ---
This patient, Zaire Leung, was received from [[facility]] on 10/24/21 at 1740. Patient/family oriented to unit policies and routines
--- NOTE | 2021-10-24 17:49 | PC.NURSE ---
This patient, Zaire Leung, was transferred to [ [id number]] on 10/24/21 at 1749. Personal belongings sent with patient. Report given to [ KIKO Navarrete]. Appropriate documentation sent with patient.
[2021-10-24] MEDS: HEPARIN SODIUM 5,000 UNITS/ML VIAL 5000 UNITS SUB-Q (21:47)
[2021-10-25] VITALS: PULSE 85
[2021-10-25 04:00] VITALS: PULSE 72
[2021-10-25 08:45] VITALS: O2SAT 97
[2021-10-25] MEDS: NICOTINE (*PBKC) 21 MG PATCH 1 PATCH TRANSDERM (08:55)
[2021-10-25] MEDS: PANTOPRAZOLE 40 MG TABLET PO (08:57)
[2021-10-25] MEDS: HEPARIN SODIUM 5,000 UNITS/ML VIAL 5000 UNITS SUB-Q (08:57)
[2021-10-25] MEDS: lisinopriL 20 MG TABLET PO (08:57)
[2021-10-25] MEDS: SILVERGEL (ELTA) 45 ML 1 APPLIC TOPICAL (08:57)
[2021-10-25 09:08] LABS: Hematocrit 33.6 % (42.0-52.0); Hemoglobin 11.7 g/dL (14.0-18.0); Mean Corpuscular HGB Conc 34.8 g/dl (32-36); Mean Corpuscular Hemoglobin 31.5 pg (26-34); Mean Corpuscular Volume 90.6 fl (80-100); Mean Platelet Volume 8.3 fl (7.4-10.4); Platelet Count Result 290 k/mm3 (150-375); Red Blood Count 3.71 M/mm3 (4.6-6.20); Red Cell Distribution Width 17.2 % (11.5-14.5); White Blood Count 5.5 K/mm3 (4.5-10.0)
[2021-10-25 09:23] LABS: Alanine Aminotransferase 38 U/L (4-50); Alkaline Phosphatase 75 U/L (38-126); Anion Gap 5 mmol/L (8-16); Aspartate Amino Transferase 54 U/L (17-59); Bilirubin,Total 0.7 mg/dL (0.2-1.3); Blood Urea Nitrogen 6 mg/dL (9-20); Calcium 8.7 mg/dL (8.4-10.2); Carbon Dioxide 26 mmol/L (22-30); Chloride 98 mmol/L (98-107); Estimated CRCL calculation 116 ml/min; Estimated Glomerular Filt Rate > 60; Glucose 92 mg/dL (65-110); Magnesium 2.1 mg/dL (1.6-2.3); Potassium 3.9 mmol/L (3.4-5.0); Sodium 129 mmol/L (137-145)
--- NOTE | 2021-10-25 10:14 | PM.DS ---
DS: Admitting Diagnosis Discharge Date 10/25/2021 Admitting Diagnosis Alcohol withdrawal DS: Discharge Diagnosis Discharge Diagnosis (1) Open wounds involving multiple regions of lower extremity: Code(s): S81.809A - Unspecified open wound, unspecified lower leg, initial encounter Status: Acute Assessment and Plan: Admit to regular medical floor Patient started on vancomycin and Zosyn Cultures in progress Wound care consult Orthopedic surgery consult Local care (2) Acute hyponatremia: Code(s): E87.1 - Hypo-osmolality and hyponatremia Status: Acute Assessment and Plan: Likely secondary to beer potomania Fluid restriction Continue to monitor (3) EtOH dependence: Code(s): F10.20 - Alcohol dependence, uncomplicated Status: Acute Assessment and Plan: CIWA protocol as needed (4) Tobacco dependence: Code(s): F17.200 - Nicotine dependence, unspecified, uncomplicated Status: Chronic Assessment and Plan: Nicotine patch as needed (5) Malone's esophagus: Code(s): K22.70 - Malone's esophagus without dysplasia Status: Acute Assessment and Plan: PPI Follow-up in outpatient setting (6) Coronary artery disease: Code(s): I25.10 - Atherosclerotic heart disease of tetlin coronary artery without angina pectoris Status: Acute Assessment and Plan: Chest pain-free Continue home meds Continue to monitor DS: Summary Hospital Course Reason for hospitalization: Chief Complaint: Right leg wound. Narrative: This is a 55-year-old male with past medical history significant for alcohol dependence, hypertension, coronary artery disease, tobacco dependence, chronic hyponatremia, chronic right lower extremity wound. Patient was brought for evaluation to the emergency room after family member was concerned about self neglect, patient has not been taking care of himself has not changed his wound dressings in a long time has not been to the doctor patient drinks 15 beers a day and smokes 1 pack of cigarettes daily, has right lower extremity pain and foul odor. Patient denies any fevers, rigors, chills, night sweats, cough or sputum production. Preliminary workup was significant for sodium 125, a foot x-ray showed erosion of 1st tarsometatarsal metatarsal bones of the right foot. Decision has made to admit the patient for further evaluation, management and treatment. Hospital Course: 10/24/2021 interval history: patient with history of alcohol abuse was placed on CIWA protocol with Librium, patient states is feeling much better compared to when he arrived, his last drink was yesterday, son is present in the room, patient has a lower extremity wound there was a concern for cellulitis and gangrene initially patient was started on vancomycin, team evaluated the patient does not suspect any gangrenous cellulitis patient has stasis dermatitis on bilateral feet. patient with hyponatremia most likely secondary to alcohol abuse will place the patient on fluid restriction 1200 cc per day, will continue to monitor and further recommendation to follow. today patient remains clinically stable is CIWA score is low, not requiring any Librium will discharge the patient home today Status at Discharge Functional status at discharge: independent ambulation Overall status at discharge: patient is back to baseline Time Spent with Patient Time attestation: Total time spent providing and/or coordinating discharge services: Patient was seen and examined at the time of the discharge Condition at discharge is stable Code status: Full code. Time spent preparing discharge summary, discharge medications, discussing discharge planning with skilled nursing case manager and patient is 35 minutes. Exam Narrative: appears chronically ill Patient is comfortable, NAD HEENT: eyes are clear and none icteric LUNGS: normal respiratory effort ABD: BS+, Soft and nontender Lower extremities: n
--- NOTE | 2021-10-25 13:56 | PM.IMPN ---
Progress Note: A&P Assessment and Plan (1) EtOH dependence: Code(s): F10.20 - Alcohol dependence, uncomplicated Status: Acute Assessment and Plan: 10/24/2021 interval history: patient with history of alcohol abuse was placed on CIWA protocol with Librium, patient states is feeling much better compared to when he arrived, his last drink was yesterday, son is present in the room, patient has a lower extremity wound there was a concern for cellulitis and gangrene initially patient was started on vancomycin, team evaluated the patient does not suspect any gangrenous cellulitis patient has stasis dermatitis on bilateral feet. patient with hyponatremia most likely secondary to alcohol abuse will place the patient on fluid restriction 1200 cc per day, will continue to monitor and further recommendation to follow. (2) Cellulitis: Qualifiers: Laterality: right Site of cellulitis: extremity Site of cellulitis of extremity: lower extremity Qualified Code(s): L03.115 - Cellulitis of right lower limb Code(s): L03.90 - Cellulitis, unspecified Status: Acute Assessment and Plan: patient was evaluated by wound team does not suspect cellulitis patient has bilateral is stasis dermatitis (3) Acute alcoholism: Code(s): F10.20 - Alcohol dependence, uncomplicated Status: Acute Assessment and Plan: patient with history of alcohol abuse will place the patient CIWA protocol (4) Acute hyponatremia: Code(s): E87.1 - Hypo-osmolality and hyponatremia Status: Acute Assessment and Plan: most likely secondary to alcohol abuse will place the patient fluid restriction and monitor Subjective Date/time seen: 10/24/21 13:56 Chief Complaint: Right leg wound. HPI: Narrative: This is a 55-year-old male with past medical history significant for alcohol dependence, hypertension, coronary artery disease, tobacco dependence, chronic hyponatremia, chronic right lower extremity wound. Patient was brought for evaluation to the emergency room after family member was concerned about self neglect, patient has not been taking care of himself has not changed his wound dressings in a long time has not been to the doctor patient drinks 15 beers a day and smokes 1 pack of cigarettes daily, has right lower extremity pain and foul odor. Patient denies any fevers, rigors, chills, night sweats, cough or sputum production. Preliminary workup was significant for sodium 125, a foot x-ray showed erosion of 1st tarsometatarsal metatarsal bones of the right foot. Decision has made to admit the patient for further evaluation, management and treatment. 10/24/2021 interval history: patient with history of alcohol abuse was placed on CIWA protocol with Librium, patient states is feeling much better compared to when he arrived, his last drink was yesterday, son is present in the room, patient has a lower extremity wound there was a concern for cellulitis and gangrene initially patient was started on vancomycin, team evaluated the patient does not suspect any gangrenous cellulitis patient has stasis dermatitis on bilateral feet. patient with hyponatremia most likely secondary to alcohol abuse will place the patient on fluid restriction 1200 cc per day, will continue to monitor and further recommendation to follow. Review of Systems Review of Systems: All systems reviewed & are unremarkable except as noted in HPI and below Exam Narrative: appears chronically ill Patient is comfortable, NAD HEENT: eyes are clear and none icteric LUNGS: normal respiratory effort ABD: BS+, Soft and nontender Lower extremities: no edema, SKIN: nonjaundiced, bilateral lower extremity stasis dermatitis Neuro: grossly intact. Objective Data Vital Signs Vital Signs: Vital Signs - 24 hr 10/24/21 14:00 10/24/21 16:00 10/24/21 16:35 Temperature 97.5 F L Pulse Rate 106 H 92 Respiratory Rate 18 Blood Pressure 131/78
== END 2021-10-25 11:05 | disposition home or self-care (01) ==
LOC: ANHED 22:13 → ANHIMU 10-24 00:37 → ANH3MEDSUR 10-25 09:41 → ANHIMU 10-27 15:46
PROVIDERS: Admitting Provider Internal Medicine; Emergency Provider Emergency Medicine; PCP Family Medicine Adolescent Medicine; Visit Provider Family Medicine
DX: I87.2 Venous insufficiency (chronic) (peripheral) (principal); S91.301A Unspecified open wound, right foot, initial encounter; E87.1 Hypo-osmolality and hyponatremia; I25.10 Atherosclerotic heart disease of native coronary artery without angina pectoris; I10 Essential (primary) hypertension; H35.30 Unspecified macular degeneration; F41.9 Anxiety disorder, unspecified; F17.210 Nicotine dependence, cigarettes, uncomplicated; F10.20 Alcohol dependence, uncomplicated; Z95.5 Presence of coronary angioplasty implant and graft
CPT/HCPCS: 36415; 73630; 80053; 83605; 83735; 85025; 85027; 87040; 96361; 96374; 96376; 99285; A9270; G0378; G0379; J1170; J1644; J2543; J3370; J7030

== ENCOUNTER 2021-11-04 06:56 | Emergency (ER) | payer OTHER, SELFPAY ==
--- NOTE | ~2021-11-04 | XR_ITS ---
EXAMINATION: XR ankle RT min 3V DATE: 11/04/2021 07:34 INDICATION: Nonhealing wound at the right ankle TECHNIQUE: Anteroposterior, oblique, mortise, and lateral views of the right ankle were obtained. COMPARISON: None. FINDINGS: Alignment is normal. No fracture. Joint spaces are relatively preserved. No osteolysis or periosteal reaction to suggest osteomyelitis. No right ankle joint effusion. Soft tissues are unremarkable with no soft tissue gas. IMPRESSION: 1. No acute osseous abnormality. Reviewed, dictated and finalized at location A.
[2021-11-04 06:56] VITALS: BP 122/80; PULSE 118; RESP 22; TEMP 36.2; O2SAT 98
--- NOTE | 2021-11-04 07:10 | PC.NURSE ---
BSSR to BLAKE HOOVER
--- NOTE | 2021-11-04 07:22 | ED.WOUNDLAC ---
HPI - Wound/Laceration General Chief Complaint: Wound/Laceration Stated Complaint: ulcer/cellulitis? Time Seen by Provider: 11/04/21 07:12 Source: patient Mode of arrival: ambulatory Limitations: no limitations History of Present Illness HPI narrative: Patient is a 56-year-old male complaining of a wound on his right ankle that is been ongoing since July. Patient states that he was seen here a week and a half ago, admitted and placed on IV antibiotics and discharged on oral clindamycin. Patient states that the wound is not better. Patient states that he has followed up with wound care in the past regarding his right ankle wound. Related Data Home Medications Medication Instructions Recorded Confirmed omeprazole 40 mg PO DAILY 08/22/21 10/24/21 Allergies Allergy/AdvReac Type Severity Reaction Status Date / Time No Known Allergies Allergy Verified 11/04/21 07:02 Review of Systems Review of Systems: All systems reviewed & are unremarkable except as noted in HPI and below Constitutional: Constitutional: Denies body ache(s), Denies chills, Denies excessive sweating, Denies fatigue, Denies fever(s), Denies headache(s), Denies lethargy, Denies malaise, Denies weakness and Denies weight loss Eyes: Eyes: Denies blurry vision, Denies change in vision and Denies loss of vision ENT: Denies dizziness, Denies ear discharge, Denies headache(s), Denies lip swelling, Denies epistaxis, Denies nasal congestion, Denies neck pain, Denies throat swelling and Denies tongue swelling Cardiovascular: Cardiovascular: Denies chest pain, Denies chest pain at rest, Denies chest pain with activity, Denies diaphoresis, Denies rapid heart rate, Denies edema, Denies irregular heart rhythm, Denies lightheadedness, Denies palpitations, Denies dyspnea and Denies dyspnea on exertion Respiratory: Respiratory: Denies chest congestion, Denies cough, Denies hemoptysis, Denies dyspnea and Denies dyspnea on exertion Gastrointestinal: Gastrointestinal: Denies abdominal pain, Denies melena, Denies hematochezia, Denies diarrhea, Denies nausea, Denies vomiting and Denies hematemesis Musculoskeletal: Musculoskeletal: Denies abnormal gait, Denies deformity, Denies joint swelling, Denies limited range of motion, Denies neck pain and Denies numbness Neurologic: Denies Abnormal speech present, Denies abnormal gait, Denies confusion, Denies dizziness, Denies headache(s), Denies focal weakness, Denies loss of vision, Denies numbness, Denies Other visual disturbances, Denies Sensory deficit (Neuro) and Denies weakness Psychiatric: Psychiatric: Denies confusion, Denies depression, Denies auditory hallucinations, Denies homicidal ideation and Denies suicidal ideation Endocrine: Endocrine: Denies cold intolerance, Denies excessive sweating, Denies fatigue, Denies heat intolerance and Denies palpitations Hematologic/Lymphatic: Hematologic/Lymphatic: Denies easy bleeding and Denies easy bruising Allergic/Immunologic: Allergic/Immunologic: Denies lip swelling, Denies throat swelling and Denies tongue swelling PMFSH Past Medical History Medical History Alcohol abuse Anxiety Chronic hyponatremia Coronary artery disease Hypertension Macular degeneration Tobacco dependence Surgical History Surgical History History of cardiac catheterization (2015) History of heart artery stent (2016) History of inguinal hernia repair Family History Family History Mother Diabetes mellitus Father Myocardial infarction Social History Social History Social History: Surrogate decision maker: Cassie Hubbard The patient has 4 children. Patient lives with his brother and [id number]. The patient is unemployed. He denies any marijuana or illicit drugs at this time.
[2021-11-04] MEDS: LACTATED RINGERS 1,000 ML 200 ML IV CONT (07:34)
[2021-11-04 07:40] LABS: Basophils Absolute Auto 0.1 K/mm3 (0.0-0.1); Basophils Percent Auto 0.9 % (0.2-1.2); Eosinophils Absolute Auto 0.1 K/mm3 (0-0.3); Eosinophils Percent Auto 1.9 % (0-4.4); Hemoglobin 13.3 g/dL (14.0-18.0); Immature Granulocyte Absolute 0.01 K/mm3 (0.00-0.031); Immature Granulocyte Percent A 0.1 % (0-0.5); Lymphocytes Absolute Auto 1.81 K/mm3 (0.9-3.2); Lymphocytes Percent Auto 26.6 % (18.3-44.2); Mean Corpuscular HGB Conc 35.9 g/dl (32-36); Mean Corpuscular Hemoglobin 32.4 pg (26-34); Mean Platelet Volume 10.5 fl (7.4-10.4); Monocytes Absolute Auto 0.7 K/mm3 (0.1-0.6); Monocytes Percent Auto 10.6 % (2.6-8.5); Neutrophils Absolute Auto 4.1 K/mm3 (1.3-6.7); Neutrophils Percent Auto 59.9 % (45.5-73.1); Platelet Count Result 424 k/mm3 (150-375); Red Blood Count 4.11 M/mm3 (4.6-6.20); Red Cell Distribution Width 17.1 % (11.5-14.5); White Blood Count 6.8 K/mm3 (4.5-10.0)
[2021-11-04 07:53] LABS: Lactic Acid Reflex 2.6 mmol/L (0.7-2.1)
[2021-11-04 08:11] VITALS: BP 125/79; PULSE 101; RESP 19; TEMP 36.8; O2SAT 99
[2021-11-04 08:22] LABS: Anion Gap 9 mmol/L (8-16); Blood Urea Nitrogen 4 mg/dL (9-20); Calcium 8.8 mg/dL (8.4-10.2); Carbon Dioxide 24 mmol/L (22-30); Chloride 95 mmol/L (98-107); Estimated CRCL calculation 101 ml/min; Estimated Glomerular Filt Rate > 60; Glucose 85 mg/dL (65-110); Potassium 4.3 mmol/L (3.4-5.0); Sodium 128 mmol/L (137-145)
--- NOTE | 2021-11-04 08:36 | PC.NURSE ---
Patient reports to this RN he drinks 10 beers a day and last consumed ETOH 14 hours ago. CATHLEEN Villalobos notified.
[2021-11-04] MEDS: LORazepam (*CRX) 1 MG TABLET 2 MG PO (08:41)
[2021-11-04 09:37] LABS: Lactic Acid Reflex 1.6 mmol/L (0.7-2.1)
[2021-11-04 09:45] VITALS: BP 116/73; PULSE 101; RESP 14; O2SAT 97
[2021-11-04 10:38] LABS: Reflex Lactic Acid Yes or No Add Lactic
[2021-11-04 10:40] VITALS: BP 113/78; PULSE 77; RESP 19; O2SAT 99
== END 2021-11-04 10:45 | disposition home or self-care (01) ==
PROVIDERS: Emergency Provider Emergency Medicine; PCP Family Medicine Adolescent Medicine
DX: L98.8 Other specified disorders of the skin and subcutaneous tissue (principal); F10.10 Alcohol abuse, uncomplicated; E87.1 Hypo-osmolality and hyponatremia; I25.10 Atherosclerotic heart disease of native coronary artery without angina pectoris; I10 Essential (primary) hypertension; H35.30 Unspecified macular degeneration; Z95.5 Presence of coronary angioplasty implant and graft; F17.210 Nicotine dependence, cigarettes, uncomplicated
CPT/HCPCS: 36415; 73610; 80048; 83605; 85025; 87040; 96360; 96361; 99283; A9270; J7120

== ENCOUNTER 2022-08-25 08:41 | Observation (INO) | payer OTHER, SELFPAY ==
[2022-08-25] VITALS (22 sets, daily range): BP systolic 130–164; BP diastolic 59–94; PULSE 52–113; RESP 15–24; TEMP 36.5–36.8; O2SAT 97–100
--- NOTE | 2022-08-25 | ECHO_ITS ---
Patient Info Name: Zaire Leung Age: 56 years : 1965 Gender: Male Ht: 74 in Wt: 193 lbs BSA: 2.14 m2 HR: 73 bpm BP: 153 / 79 mmHg Heart Rhythm: Sinus Rhythm Technical Quality: Good Exam Date: 08/25/2022 3:56 PM Exam Location: [facility] Pulmonary Patient Status: Outpatient Admit Date: 08/25/2022 Staff Ordering Physician: Dorita Vasquez MD ([email or web address]/johnny) Professor Of Communication Arts: Deedee Clark RDCS Attending Provider: Aron Ruiz MD Referring Physician: Pedro NG; Exam Type: CA echo doppler color flow Study Info Indications R07.9 - Chest pain, unspecified Complete two-dimensional, color flow and Doppler transthoracic echocardiogram is performed. Summary 1. Complete two-dimensional, color flow and Doppler transthoracic echocardiogram is performed. 2. Left ventricular chamber dimension is normal. 3. Left ventricular systolic function is normal, estimated at 60-65%. 4. The left ventricular diastolic function is grade I diastolic dysfunction. 5. Right ventricular systolic function is normal. 6. There is trace mitral valve regurgitation. 7. There is trace tricuspid valve regurgitation. Left Ventricle Left ventricular chamber dimension is normal. Left ventricular systolic function is normal, estimated at 60-65%. There is no increased left ventricular wall thickness. The left ventricular diastolic function is grade I diastolic dysfunction. Right Ventricle Right ventricular chamber dimension is normal. Right ventricular systolic function is normal. Left Atria Left atrial chamber dimension is normal. Right Atria Right atrial chamber dimension is normal. Aortic Valve The aortic valve is not well visualized. There is mild aortic valve sclerosis. There is no aortic valve stenosis. There is no aortic valve regurgitation. Pulmonic Valve The pulmonic valve is not well visualized. Mitral Valve The mitral valve has normal leaflets. There is no mitral valve stenosis. There is trace mitral valve regurgitation. Tricuspid Valve There is trace tricuspid valve regurgitation. Pericardium/Pleural There is no pericardial effusion. Inferior Vena Cava Normal inferior vena cava with >50% collapse upon inspiration consistent with normal right atrial pressure. Aorta The aortic root size at the sinus of Valsalva is borderline dilated. Left Ventricular Outflow Tract Name Value Normal LVOT 2D LVOT Diameter 2.0 cm LVOT Doppler LVOT Peak Gradient 4 mmHg LVOT Mean Gradient 3 mmHg LVOT VTI 21 cm LVOT VTI/AV VTI Ratio 0.9 LVOT Stroke Volume 68 ml LVOT CO 5.4 l/min LVOT CI 2.5 l/min/m2 Mitral Valve Name Value Normal MV Doppler
--- NOTE | ~2022-08-25 | NM_ITS ---
EXAMINATION: NM barbie stress w perfusion DATE: 08/26/2022 13:37 INDICATION: Chest pain TECHNIQUE: Rest images were obtained following intravenous administration of 10.3 mCi Tc99m tetrofosm in (Myoview). The patient was infused intravenously with Lexiscan (Regadenoson). Then, 31.8 mCi Tc99m tetrofosmin (Myoview) was administered intravenously, and stress images were obtained. Data was ron nstructed into short axis and horizontal and vertical long axis SPECT images. Gated SPECT images were also obtained. COMPARISON: None. FINDINGS: There is no definite reversible or fixed perfusion abnormality to suggest ischemia or infar ction. There is normal left ventricular chamber size, wall motion and ejection fraction. Left ventr icular ejection fraction measures >70%. IMPRESSION: 1. Normal myocardial perfusion at rest and during stress. 2. Left ventricular ejection fraction measuring >70%. Reviewed, dictated and finalized at location A. P LEADER
--- NOTE | ~2022-08-25 | XR_ITS ---
XR chest 1V portable DATE: 08/25/2022 09:27 INDICATION: Chest pain TECHNIQUE: Portable upright AP views on 08/25/2022 at 0 922 at 0923 hours COMPARISON: 06/24/2021 portable AP chest FINDINGS: Normal heart size. No hilar or mediastinal enlargement. No pulmonary infiltrate or consolid ation, pleural effusion or pulmonary vascular congestion or pneumothorax is detected. IMPRESSION: No active cardiopulmonary disease Reviewed, dictated and finalized at location L. RSCHOOL
--- NOTE | ~2022-08-25 | US_ITS ---
EXAMINATION: US venous doppler [facility] DATE: 08/25/2022 22:56 INDICATION: Lower limb edema. TECHNIQUE: Grayscale ultrasound images without and with compression and Doppler ultrasound images of the bilateral lower extremity veins were obtained. COMPARISON: Ultrasound 06/25/2021 FINDINGS: The visualized portions of right common femoral vein, profunda (deep) femoral vein, femoral vein, pop liteal vein, peroneal veins, posterior tibial veins, and greater saphenous vein outflow are patent. The visualized portions of left common femoral vein, profunda femoral vein, femoral vein, popliteal v ein, peroneal veins, posterior tibial veins, and greater saphenous vein outflow are patent. IMPRESSION: 1. No deep venous thrombosis. Reviewed, dictated and finalized at location A. MANAGEMENT ANALYST
--- NOTE | 2022-08-25 08:46 | ECG_ITS ---
Measurements Intervals [place] Rate: 92 P: 69 RI: 137 QRS: 70 QRSD: 94 T: 50 QT: 344 QTc: 427 Interpretive Statements SINUS RHYTHM MINIMAL Q WAVES- INFERIOR LEADS BORDERLINE ECG COMPARED TO ECG 06/24/2021 12:05:50 NO SIGNIFICANT CHANGES Electronically Signed On 08-25-2022 9:03:44 SERVICE ORDER DISPATCHER CHIEF by Mando Lawler D.O.
--- NOTE | 2022-08-25 09:07 | ED.CHESTPAIN ---
HPI - Chest Pain General Chief Complaint: Chest Pain Stated Complaint: CHEST PAIN Time Seen by Provider: 08/25/22 08:46 History of Present Illness HPI narrative: Patient states that about 7 days ago he started having crushing chest pain that radiated to his left arm, also some congestion and mild cough, he does state that he has sick contacts. He also does report that the pain is somewhat similar to the time where he had a heart attack. The feeling of chest pain is constant, though does worsen at times, nonexertional, no nausea or vomiting, . No focal numbness or weakness Related Data Home Medications Medication Instructions Recorded Confirmed omeprazole 40 mg capsule,delayed 40 mg PO DAILY 08/22/21 10/24/21 release Allergies Allergy/AdvReac Type Severity Reaction Status Date / Time No Known Allergies Allergy Verified 11/04/21 07:02 Review of Systems Review of Systems: CONST: No fever. HEENT: Congestion C/V: chest pain RESP: cough GI: No abdominal pain : No dysuria. M/S: No joint pain. SKIN: No rash. NEURO: [No headache or focal numbness or weakness] PSYCH: [No depression] [facility] Past Medical History Medical History Alcohol abuse Anxiety Bleeding duodenal ulcer Chronic hyponatremia Coronary artery disease DNR (do not resuscitate) Macular degeneration Tobacco dependence Surgical History Surgical History History of cardiac catheterization (2016) History of heart artery stent (2016) 2016 History of inguinal hernia repair 2006 Family History Family History Mother Diabetes mellitus Hypertension CHF (congestive heart failure) Father Myocardial infarction Social History Social History Social History: Surrogate decision maker: Cassie Hubbard The patient has 4 children. Patient lives with his brother and [id number]. The patient is unemployed. He denies any marijuana or illicit drugs at this time. The patient states that he drinks 12-15 beers a day. He smokes at least a pack a cigarettes a day. Code status: Do not resuscitate. Smoking packs per day: 1.5 Smoking cigarettes per day: 30.0 Years smoked: 35 Smoking pack-years: 52.50 Smoking status: Current every day smoker Tobacco type: cigarettes Second hand tobacco smoke exposure: Yes Alcohol intake: current Drinks per week: 80 Alcohol use details: 10 beers a day Substance use: never Substance use type: does not use Additional living arrangements comments: The patient lives in [place] with his brother and [id number]. Additional occupation/education comments: Currently unemployed. Spiritual care concerns: No Exam Narrative: EXAMINATION OF ORGAN SYSTEMS/BODY AREAS: Constitutional: Vital signs per nursing GENERAL:[No acute distress, non-toxic appearing.] HEAD: Normal with no signs of head trauma. EYES: EOMI, conjunctiva normal ENT: Hearing grossly intact LUNGS: Nonlabored breathing. Clear to auscultation HEART: [Regular rate and rhythm] ABD: [Soft], [nontender to palpation] EXT: Normal range of motion SKIN: [No rashes or lesions.] NEURO: [Alert and oriented x 3. No gross focal sensory or strength deficits.] PSYCH: Normal affect Course Vital Signs Vital signs: Vital Signs Temperature 98.2 F 08/25/22 08:43 Pulse Rate 94 08/25/22 08:43 Respiratory Rate 17 08/25/22 08:43 Blood Pressure 151/94 H 08/25/22 08:43 Pulse Oximetry 99 08/25/22 08:43 Oxygen Delivery Room Air 08/25/22 08:43 Temperature 98.2 F 08/25/22 08:43 Pulse Rate 98 08/25/22 10:47 Respiratory Rate 24 H 08/25/22 10:47 Blood Pressure 144/82 H 08/25/22 09:46 Pulse Oximetry 100 08/25/22 10:30 Oxygen Delivery Room Air 08/25/22 08:43 MDM - Chest Pain MDM Narrative Medical de
[2022-08-25 09:41] LABS: Basophils Absolute Auto 0.1 K/mm3 (0.0-0.1); Basophils Percent Auto 0.8 % (0.2-1.2); Eosinophils Absolute Auto 0.2 K/mm3 (0-0.3); Eosinophils Percent Auto 2.1 % (0-4.4); Hematocrit 34.3 % (42.0-52.0); Hemoglobin 11.4 g/dL (14.0-18.0); Immature Granulocyte Absolute 0.02 K/mm3 (0.00-0.031); Immature Granulocyte Percent A 0.3 % (0-0.5); Lymphocytes Absolute Auto 0.75 K/mm3 (0.9-3.2); Lymphocytes Percent Auto 9.4 % (18.3-44.2); Mean Corpuscular HGB Conc 33.2 g/dl (32-36); Mean Corpuscular Hemoglobin 29.6 pg (26-34); Mean Corpuscular Volume 89.1 fl (80-100); Mean Platelet Volume 8.1 fl (7.4-10.4); Monocytes Absolute Auto 0.7 K/mm3 (0.1-0.6); Monocytes Percent Auto 8.5 % (2.6-8.5); Neutrophils Absolute Auto 6.3 K/mm3 (1.3-6.7); Neutrophils Percent Auto 78.9 % (45.5-73.1); Platelet Count Result 466 k/mm3 (150-375); Red Blood Count 3.85 M/mm3 (4.6-6.20); Red Cell Distribution Width 17.3 % (11.5-14.5)
[2022-08-25 09:55] LABS: Chloride 100 mmol/L (98-107)
[2022-08-25 09:56] LABS: Alanine Aminotransferase 21 U/L (6-50); Albumin Level 4.4 g/dL (3.5-5.1); Alkaline Phosphatase 62 U/L (38-126); Anion Gap 7 mmol/L (8-16); Aspartate Amino Transferase 39 U/L (17-59); Bilirubin,Total 0.4 mg/dL (0.2-1.3); Blood Urea Nitrogen 7 mg/dL (9-20); Calcium 8.4 mg/dL (8.4-10.2); Carbon Dioxide 28 mmol/L (22-30); Estimated CRCL calculation 119 ml/min; Estimated Glomerular Filt Rate > 60; Glucose 99 mg/dL (65-110); Magnesium 2.1 mg/dL (1.6-2.3); Potassium 4.5 mmol/L (3.4-5.0); Sodium 135 mmol/L (137-145)
[2022-08-25 10:12] LABS: NT Pro B Type Natriuretic Pept 93 pg/mL (19.9-100); Troponin I 0.035 ng/mL (0.000-0.034)
[2022-08-25 10:15] LABS: Influenza A QL RT-PCR Negative (Negative); Influenza B QL RT-PCR Negative (Negative); RSV RNA, RT-PCR Negative (Negative); SARS-CoV-2 RNA PCR Negative
[2022-08-25 12:50] LABS: Troponin I 0.031 ng/mL (0.000-0.034)
--- NOTE | 2022-08-25 14:10 | PM.IMHP ---
H&P: HPI History of Present Illness Date/Time: 08/25/22 14:10 Chief Complaint: Chest pain. Narrative: This is a very pleasant 56-year-old male smoker with history of alcohol abuse, GERD, Malone esophagus, duodenal ulcers, coronary artery disease with history of stent, and hypertension who presented to the emergency department for evaluation of chest pain. He complains of intermittent left anterior chest pain/pressure radiating to the left flank and somewhat into the axilla. It seems to occur with exertion only and is relieved with rest. At times he will feel a bit lightheaded and short of breath when the pain occurs but not every time. He has also had a couple of episodes nausea and vomiting each day over the last couple of days, again not necessarily related to when he is having the chest discomfort. It is not necessarily similar to when he had stents placed in the past nor is it similar to his GERD. Has had some dark stools but no or overt blood that he can tell. He also mentions having occasional episodes of lightheadedness when going from a sitting to standing position. He denies syncope, near syncope, sweats, sensations of racing heart, palpitations, pleuritic pain, epigastric and abdominal pain, hematemesis, and hematochezia. Family members have had URI symptoms though he has not had sinus congestion, sore throat fever, chills, sweats, or significant cough. EKG on admission showed no acute ischemic changes. Initial troponin was at the upper limit of normal at 0.035. He is being admitted in this setting for close monitoring and Cardiology consultation. Review of Systems Review of Systems: Twelve systems were reviewed and are negative except for as per HPI. [facility] Past Medical History Medical History Alcohol abuse Anxiety Aortic atherosclerosis Malone's esophagus Bleeding duodenal ulcer Chronic anemia Chronic hyponatremia Coronary artery disease Emphysema lung Essential (primary) hypertension Gastroesophageal reflux disease Macular degeneration Tobacco dependence Surgical History Surgical History History of cardiac catheterization (2015) History of heart artery stent (2015) History of right inguinal hernia repair (09/2006) Family History Family History Mother Diabetes mellitus Hypertension CHF (congestive heart failure) Father Myocardial infarction Social History Social History Social History: Surrogate decision maker: Tonja Hubbard, daughter. Code status: Do not resuscitate. Smoking packs per day: 1.5 Smoking cigarettes per day: 30.0 Years smoked: 35 Smoking pack-years: 52.50 Smoking status: Current every day smoker Tobacco type: cigarettes Second hand tobacco smoke exposure: Yes Alcohol intake: current Drinks per week: 80 Alcohol use details: 10-15 beers a day. Substance use: never Substance use type: does not use Lack of Transportation: No Lack of Food: Never True Current Housing: I Have Housing Concerned About Future Housing: No Difficulty Paying Gas/Electric Bills: No Difficulty Paying for Meds: No Currently Unemployed: No Education: Decline to Answer Difficulty w/ Childcare or Family Care: No Additional living arrangements comments: Lives in [place] with his brother and [id number]. Four children. Additional occupation/education comments: Currently unemployed. Spiritual care concerns: No Meds Home Medications and Allergies Home Medications Medication Instructions Recorded Confirmed Type lisinopril 20 mg tablet 20 mg PO DAILY 08/25/22 08/25/22 History Allergies Allergy/AdvReac Type Severity Reaction Status Date / Time No Known Allergies Allergy Verified 08/25/22 12:42 Vital Signs Vital Signs - 24 hr
--- NOTE | 2022-08-25 14:17 | PM.CNCAR ---
Assessment and Plan Assessment and plan (1) Chest pain: Code(s): R07.9 - Chest pain, unspecified Status: Acute (2) Elevated troponin: Code(s): R77.8 - Other specified abnormalities of plasma proteins Status: Acute (3) Essential (primary) hypertension: Code(s): I10 - Essential (primary) hypertension Status: Acute (4) Tobacco dependence: Code(s): F17.200 - Nicotine dependence, unspecified, uncomplicated Status: Chronic (5) Alcohol abuse: Code(s): F10.10 - Alcohol abuse, uncomplicated Status: Acute Plan Patient is having typical anginal symptoms (substernal pain that worsens with exertion and improves with rest). Pain is similar to when he had his LAD PCI back in 2016. Initial troponin was slightly above the upper limits of normal at 0.035 (upper limit of normal is 0.034), second troponin is within normal range. Will obtain echocardiogram. Check lipid panel, A1c, TSH. Start ASA 81mg once daily. Start high-intensity statin. Will start beta-jessee. Will plan for cardiac cath 08/26. Patient to be NPO at midnight. History of Present Illness History of Present Illness Consult date/time: 08/25/22 14:17 Requesting physician: Aron Ruiz MD Consult reason: chest pain Reason For Visit: Chest Pain Narrative: We are consulted for chest pain and elevated troponin. This is a 56-year-old male with a history of CAD s/p prior LAD PCI in 2016, alcohol use, tobacco dependence who presented with substernal chest pain that began about a week ago. Has radiation to left arm. No shortness of breath. Worsens with exertion. Feels similar to when he had his LAD PCI. ECG on admission without ischemic changes. Initial troponin above the upper limits of normal at 0.035 (upper limit of normal at 0.034). Repeat troponin 0.031. Review of Systems Review of Systems: 12-point ROS obtained. Negative, unless stated in HPI. [facility] Past Medical History Medical History Alcohol abuse Anxiety Aortic atherosclerosis Malone's esophagus Bleeding duodenal ulcer Chronic hyponatremia Coronary artery disease Emphysema lung Essential (primary) hypertension Macular degeneration Tobacco dependence Surgical History Surgical History History of cardiac catheterization (2016) History of heart artery stent (2016) History of right inguinal hernia repair (09/2006) Family History Family History Mother Diabetes mellitus Hypertension CHF (congestive heart failure) Father Myocardial infarction Social History Social History Social History: Surrogate decision maker: Tonja Hubbard, daughter. Code status: Do not resuscitate. Smoking packs per day: 1.5 Smoking cigarettes per day: 30.0 Years smoked: 35 Smoking pack-years: 52.50 Smoking status: Current every day smoker Tobacco type: cigarettes Second hand tobacco smoke exposure: Yes Alcohol intake: current Drinks per week: 80 Alcohol use details: 10-15 beers a day. Substance use: never Substance use type: does not use Additional living arrangements comments: Lives in [place] with his brother and [id number]. Four children. Additional occupation/education comments: Currently unemployed. Spiritual care concerns: No Meds Home Medications and Allergies Home Medications Medication Instructions Recorded Confirmed Type lisinopril 20 mg tablet 20 mg PO DAILY 08/25/22 08/25/22 History Allergies Allergy/AdvReac Type Severity Reaction Status Date / Time No Known Allergies Allergy Verified 08/25/22 12:42 Vital Signs Vital Signs - 24 hr 08/25/22 08:43 08/25/22 08:43 08/25/22 08:43 Temperature 36.8 C 36.8 C Pulse Rate 94 96 Respiratory Rate 17 17 Blood Pressure 151/94 H 15
[2022-08-25 14:47] LABS: Hematocrit 32.6 % (42.0-52.0); Hemoglobin 10.6 g/dL (14.0-18.0)
[2022-08-25 14:51] LABS: Cholesterol 163 mg/dL (0-200); HDL Direct 74 mg/dL; Triglycerides 53 mg/dL (<150)
[2022-08-25 15:02] LABS: LDL Cholesterol Direct 61 mg/dL
[2022-08-25 15:22] LABS: Thyroid Stimulating Hormone 0.864 uIU/mL (0.465-4.680)
[2022-08-25] MEDS: METOPROLOL SUCCINATE EXT REL 25 MG TABCR PO (17:01)
[2022-08-25] MEDS: NICOTINE (*PBKC) 21 MG PATCH 1 PATCH TRANSDERM (17:01)
[2022-08-25] MEDS: chlordiazePOXIDE (*CRX) 25 MG CAPSULE PO (17:01)
--- NOTE | 2022-08-25 17:08 | PC.NURSE ---
Spoke with Elisha, road equipment operator, regarding patient's prior scabies and isolation status. Patient reports that the itching and rash is much improved and has been properly treated with an ointment from his primary. No isolation or further treatment is required at this time. Heather Jensen notified.
[2022-08-25] MEDS: PANTOPRAZOLE SODIUM IV 40 MG VIAL IV PUSH (23:29)
[2022-08-25] MEDS: chlordiazePOXIDE (*CRX) 25 MG CAPSULE 50 MG PO (23:29)
[2022-08-26] VITALS (11 sets, daily range): BP systolic 102–112; BP diastolic 61–71; PULSE 67–96; RESP 16–20; TEMP 36.1–36.6; O2SAT 95–99
[2022-08-26 05:20] LABS: Lipase 160 U/L (23-300)
[2022-08-26] MEDS: chlordiazePOXIDE (*CRX) 25 MG CAPSULE 50 MG PO (05:52)
--- NOTE | 2022-08-26 09:02 | EST_ITS ---
Patient Info Name: Zaire Leung Age: 56 years : 1965 Gender: Male Ht: 74 in Wt: 180 lbs BSA: 2.06 m2 HR: 79 bpm BP: 113 / 78 mmHg Heart Rhythm: Sinus Rhythm Exam Date: 08/26/2022 12:37 PM Exam Location: [facility] Stress Patient Status: Outpatient Admit Date: 08/25/2022 Staff Ordering Physician: Dorita Vasquez MD Attending Provider: Aron Ruiz MD Exercise Technologist: Kylah Walton CT Exercise Physician: Dorita Vasquez MD Exam Type: CA stress barbie w NM Study Info Indications R07.9 - Chest pain, unspecified A regadenoson stress test was performed. Summary 1. No abnormal ST/T wave changes diagnostic of ischemia with Lexiscan. 2. Please correlate with nuclear medicine images, reported separately. Protocol: Lexiscan Stress ECG Details Stage: REST Duration (min): 0 min : 49 sec HR (bpm): 79 SBP (mmHg): 113 DBP (mmHg): 78 Stage: REST Duration (min): 8 min : 19 sec HR (bpm): 84 SBP (mmHg): 113 DBP (mmHg): 78 Stage: STAGE 1 Duration (min): 0 min : 59 sec HR (bpm): 98 SBP (mmHg): 115 DBP (mmHg): 74 Stage: RECOVERY Duration (min): 1 min : 0 sec HR (bpm): 99 SBP (mmHg): 115 DBP (mmHg): 74 Stage: RECOVERY Duration (min): 2 min : 0 sec HR (bpm): 93 SBP (mmHg): 115 DBP (mmHg): 74 Stage: RECOVERY Duration (min): 3 min : 0 sec HR (bpm): 92 SBP (mmHg): 111 DBP (mmHg): 70 Stage: RECOVERY Duration (min): 3 min : 3 sec HR (bpm): 91 SBP (mmHg): 111 DBP (mmHg): 70 Rest HR: 84 bpm Peak HR: 104 bpm Rest Sys BP: 113 mmHg Peak Sys BP: 115 mmHg Max Pred HR: 165 bpm % Max Pred HR: 63 % Target HR: 140 bpm Max RPP: 11,960 bpm*mmHg Total Time: 1 min : 0 sec Rest Valentino BP: 78 mmHg Peak Valentino BP: 74 mmHg Total Dose: 0.4 mg Resting ECG Sinus rhythm. Stress ECG Sinus tachycardia. No abnormal ST/T wave changes diagnostic of ischemia with Lexiscan. Arrhythmias None. Report Signatures
--- NOTE | 2022-08-26 09:09 | PM.PNCARD ---
Progress Note: A&P Assessment and Plan (1) Chronic anemia: Code(s): D64.9 - Anemia, unspecified Status: Acute (2) Gastroesophageal reflux disease: Code(s): K21.9 - Gastro-esophageal reflux disease without esophagitis Status: Acute (3) Malone's esophagus: Code(s): K22.70 - Malone's esophagus without dysplasia Status: Acute (4) Essential (primary) hypertension: Code(s): I10 - Essential (primary) hypertension Status: Acute (5) Chest pain: Code(s): R07.9 - Chest pain, unspecified Status: Acute (6) EtOH dependence: Code(s): F10.20 - Alcohol dependence, uncomplicated Status: Acute (7) Coronary artery disease: Code(s): I25.10 - Atherosclerotic heart disease of [place] coronary artery without angina pectoris Status: Acute (8) Tobacco dependence: Code(s): F17.200 - Nicotine dependence, unspecified, uncomplicated Status: Chronic Plan Echocardiogram done yesterday afternoon which shows preserved LVEF without appreciable wall motion abnormalities, no significant valvular disease. Initially, I had thought about doing cardiac cath on the patient, however, I am worried about his bleeding risk if he does need DAPT. He had a significant GI bleed in 2020 due to heavy NSAID use, was found with a bleeding ulcer that was treated; noted to have other ulcers. Was supposed to follow-up with GI at that time with a repeat endoscopy to ensure healing, but it does not appear that he has followed up. Given his ongoing heavy NSAID use, he may have bleeding issues again if he needs DAPT. I am also worried about his compliance with medications and ability to follow-up as an outpatient. Given this, will not proceed with cardiac cath at this time. Will obtain stress test. If stress test with mild-moderate abnormality, will medically manage and have patient follow-up with us in clinic. Continue ASA 81mg once daily, high-intensity statin, will do antianginal therapy with beta jessee and Imdur, which can be uptitrated as tolerated. Will also start him on a PPI given his heavy NSAID use, known esophageal ulcers. Subjective Date/time seen: 08/26/22 09:09 Interval history: Reason for visit: Chest pain HPI: We are consulted for chest pain and elevated troponin. This is a 56-year-old male with a history of CAD s/p prior LAD PCI in 2016, alcohol use, tobacco dependence who presented with substernal chest pain that began about a week ago. Has radiation to left arm. No shortness of breath. Worsens with exertion. Feels similar to when he had his LAD PCI. ECG on admission without ischemic changes. Initial troponin above the upper limits of normal at 0.035 (upper limit of normal at 0.034). Repeat troponin 0.031. Date of service 08/26: No acute events overnight. No chest pain at rest. Has occasional exertional mild chest pain, but overall patient feeling comfortable and doing well. No other complaints. Review of Systems Review of Systems: 12-point ROS obtained. Negative, unless stated in HPI. Exam Const: General: comfortable and no acute distress HENMT: Mouth: Yes moist mucous membranes Eyes: General: appearance normal, both eyes and all related structures Sclera: sclerae normal Neck: Neck: supple Resp: Effort & Inspection: normal respiratory effort Auscultation: clear to auscultation bilaterally Cardio: Rate: regular rate Rhythm: regular rhythm Heart sounds: no murmurs GI: GI Palp: Yes Soft to palpation and No Tenderness to palpation present (GI) Skin: General skin exam: normal color Neuro: Speech: normal speech Extrem: General: normal to inspection and no edema Psych: Mental Status: mental status grossly normal Affect: normal affect Objective Data Vital Signs Vital Signs: Vital Signs - 24 hr 08/25/22 09:12 08/25/22 09:15 08/25/22 09:30 Temperature Pulse Rate 94 87 85 Respiratory Rate 23 H 16 18 Blood Pressure 151/94 H Pulse Oxim
[2022-08-26] MEDS: ISOSORBIDE MONONITRATE 30 MG TAB.ER.24H PO (09:57)
[2022-08-26] MEDS: PANTOPRAZOLE 40 MG TABLET PO (09:57)
[2022-08-26] MEDS: THIAMINE HCL 100 MG TABLET PO (09:57)
[2022-08-26] MEDS: FOLIC ACID 1 MG TABLET PO (09:57)
[2022-08-26] MEDS: ATORVASTATIN 40 MG TABLET 80 MG PO (09:57)
[2022-08-26] MEDS: ASPIRIN 81 MG ENTERIC TABLET PO (09:59)
[2022-08-26] MEDS: THERAPEUTIC MULTIVITAMINS/MINERALS TAB (*BKC) 1 TABLET PO (09:59)
[2022-08-26] MEDS: NICOTINE (*PBKC) 21 MG PATCH 1 PATCH TRANSDERM (10:20)
[2022-08-26] MEDS: lisinopriL 20 MG TABLET PO (10:23)
[2022-08-26] MEDS: chlordiazePOXIDE (*CRX) 25 MG CAPSULE PO (11:30)
--- NOTE | 2022-08-26 12:09 | PC.NURSE ---
1145- TO CARDIOLOGY DEPT FOR STRESS TEST VIA W/C ACCOMPANIED BY TRANSPORTER
--- NOTE | 2022-08-26 13:53 | PC.NURSE ---
returned to room - test completed
[2022-08-26] MEDS: METOPROLOL SUCCINATE EXT REL 25 MG TABCR PO (14:38)
--- NOTE | 2022-08-26 16:02 | PM.DS ---
DS: Admitting Diagnosis Discharge Date 08/26/22 Admitting Diagnosis Chest pain DS: Discharge Diagnosis Discharge Diagnosis (1) Chest pain: Code(s): R07.9 - Chest pain, unspecified Status: Acute (2) Coronary artery disease: Code(s): I25.10 - Atherosclerotic heart disease of ute coronary artery without angina pectoris Status: Acute (3) Alcohol abuse: Code(s): F10.10 - Alcohol abuse, uncomplicated Status: Acute (4) Essential (primary) hypertension: Code(s): I10 - Essential (primary) hypertension Status: Acute (5) Gastroesophageal reflux disease: Code(s): K21.9 - Gastro-esophageal reflux disease without esophagitis Status: Acute (6) Chronic anemia: Code(s): D64.9 - Anemia, unspecified Status: Acute (7) Tobacco dependence: Code(s): F17.200 - Nicotine dependence, unspecified, uncomplicated Status: Chronic DS: Summary Hospital Course Reason for hospitalization: 56yo male with CAD here for chest pain. please see H&P for details. Hospital Course: The patient presented to the emergency department for evaluation of intermittent chest pain over the past week. EKG showed sinus rhythm with borderline Q-waves inferior leads but no significant change from prior EKG. echocardiogram showed normal systolic function with EF of 60-65% and grade 1 diastolic dysfunction. Hemoglobin was slightly low at 11 it is has been noted before. Troponin slightly elevated 0.035 on repeat was normal. TSH was normal. Lipase was normal. Influenza, RSV and COVID were negative. Lower extremity venous Dopplers were negative for DVT. Chest x-ray was clear. Patient was seen by Cardiology. Medications were adjusted. He underwent Lexiscan stress test which showed normal myocardial perfusion at rest and during stress. There was no definitive reversible or fixed perfusion abnormalities. Please see report for details. Patient overall did well was able be discharged home on 08/26/2022. Status at Discharge Cognitive/behavioral status at discharge: stable Time Spent with Patient Time attestation: Total time spent providing and/or coordinating discharge services: 38 minutes Time spent: Greater than 30 minutes Exam Narrative: Gen - NARD Chest - CTA bilaterally, nml RR CV - RRR S1/S2 Abd - Soft, NT/ND, Positive BS Ext - No pedal edema Neuro - Alert and oriented. Nonfocal exam. Psych - Nml mood and affect Skin - Warm and dry. bilaterally LE dry scaly skin with small dried eschar right lateral ankle DS: Data Data Completed and Pending Labs on day of discharge: Labs from last 24 hours 08/26/22 03:36 Lipase 160 Discharge Plan Discharge Attending physician on discharge: Duglas Boyer Consulting providers: Wellington Gastelum Discharging Clinician: Duglas Boyer Anticipated Discharge Date/Time: 08/26/22 16:08 Patient Disposition: Home, Self-Care Activity: as tolerated Diet: heart healthy Discharge Instructions: Please abstain from using any products containing alcohol. Take precautions to avoid falls. Rise slowly from a lying or sitting position. Pause before standing or walking. Contact your doctor or call 911 and come to the Emergency Room if you have chest pain or other worrisome symptoms. Avoid NSAIDs (ibuprofen, naproxen, Aleve). Tylenol is safe to take. Follow-up with your primary care provider in 1-2 weeks. Please call for appointment. Follow-up with Customer Security Clerk in 2-4 weeks. Please call for an appointment. Follow-up with Dr Sinha (GI doctor) for further evaluation of duodenal ulcer. Please call for an appointment. Thank you for using [facility] for your health care needs. Patient Instructions: Antibiotic Form, How to Stop Smoking (GEN) Stand Alone Forms: General Discharge Information Follow-up/Referrals: Ryan Sinha MD [Physician] - Call for Appointment Leticia
== END 2022-08-26 17:00 | disposition home or self-care (01) ==
LOC: ANHED 11:07 → ANHIMU 11:47
PROVIDERS: Internal Medicine; Physician Assistant; Admitting Provider Chiropractor; Emergency Provider Emergency Medicine; PCP Family Medicine Adolescent Medicine; Visit Provider Internal Medicine
DX: R07.9 Chest pain, unspecified (principal); I25.10 Atherosclerotic heart disease of native coronary artery without angina pectoris; R77.8 Other specified abnormalities of plasma proteins; R60.0 Localized edema; I10 Essential (primary) hypertension; K22.70 Barrett's esophagus without dysplasia; F10.10 Alcohol abuse, uncomplicated; K21.9 Gastro-esophageal reflux disease without esophagitis; D64.9 Anemia, unspecified; F17.210 Nicotine dependence, cigarettes, uncomplicated; Z95.5 Presence of coronary angioplasty implant and graft; Z20.822 Contact with and (suspected) exposure to COVID-19; Z79.899 Other long term (current) drug therapy
CPT/HCPCS: 36415; 71045; 78452; 80053; 80061; 83036; 83690; 83735; 83880; 84443; 84484; 85014; 85018; 85025; 87637; 93005; 93017; 93306; 93970; 96374; 99285; A9270; A9502; C9113; G0378; G0379; J1644; J2785; J7040

== ENCOUNTER 2022-09-02 17:30 | Emergency (ER) | payer OTHER, SELFPAY ==
[2022-09-02] VITALS (24 sets, daily range): BP systolic 122–143; BP diastolic 73–86; PULSE 63–77; RESP 13–19; TEMP 36.8; O2SAT 99–100
--- NOTE | ~2022-09-02 | XR_ITS ---
EXAMINATION: XR chest 2V Exam Date/Time: 09/02/2022 18:00 COMPENSATION BUSINESS PARTNER HISTORY: CHEST PAIN, N/V, DIZZINESS. HX CARDIAC CATH Comparison: 08/25/2022. RESULT: Lines, tubes, and devices: Coronary artery stent. Lungs and pleura: Clear. Cardiomediastinal silhouette: Stable. Other: No acute osseous or upper abdominal finding. IMPRESSION: No acute cardiopulmonary process. Reviewed, dictated and finalized at location K. [employer]NER
--- NOTE | 2022-09-02 17:31 | ECG_ITS ---
Measurements Intervals [place] Rate: 74 P: 69 PA: 152 QRS: 73 QRSD: 105 T: 51 QT: 372 QTc: 413 Interpretive Statements SINUS RHYTHM MINIMAL Q WAVES- INFERIOR LEADS BORDERLINE ECG COMPARED TO ECG 08/25/2022 08:45:40 NO SIGNIFICANT CHANGES Electronically Signed On 09-02-2022 19:17:28 VP [employer] by Mando Lawler D.O.
--- NOTE | 2022-09-02 17:42 | ED.CHESTPAIN ---
HPI - Chest Pain General Chief Complaint: Chest Pain Stated Complaint: CP, N/V Time Seen by Provider: 09/02/22 17:40 History of Present Illness HPI narrative: Patient is a 56-year-old male with a history of hypertension, hyperlipidemia, tobacco use disorder presenting with chest pain. Patient states that he was actually here last week with similar substernal chest pain. He was able to be discharged home but states that the pain never actually went away. States that today it became worse which is what brought him in for evaluation. States that it is on the left side of his chest and radiates to his sternum. He denies lightheadedness. Reports some mild shortness of breath and cough. no fevers or chills, headache, numbness or weakness, speech changes, ambulatory difficulties, abdominal pain, diarrhea, leg swelling. He does report multiple episodes of emesis. Related Data Home Medications Medication Instructions Recorded Confirmed lisinopril 20 mg tablet 20 mg PO DAILY 08/25/22 08/25/22 Allergies Allergy/AdvReac Type Severity Reaction Status Date / Time No Known Allergies Allergy Verified 09/02/22 17:37 Review of Systems Review of Systems: All systems reviewed & are unremarkable except as noted in HPI and below PMFSH Past Medical History Medical History Alcohol abuse Anxiety Aortic atherosclerosis Malone's esophagus Bleeding duodenal ulcer Chronic anemia Chronic hyponatremia Coronary artery disease Emphysema lung Essential (primary) hypertension Gastroesophageal reflux disease Macular degeneration Tobacco dependence Surgical History Surgical History History of cardiac catheterization (2015) History of heart artery stent (2015) History of right inguinal hernia repair (09/2006) Family History Family History Mother Diabetes mellitus Hypertension CHF (congestive heart failure) Father Myocardial infarction Social History Social History Social History: Surrogate decision maker: Tonja Hubbard, daughter. Code status: Do not resuscitate. Smoking packs per day: 1.5 Smoking cigarettes per day: 30.0 Years smoked: 35 Smoking pack-years: 52.50 Smoking status: Current every day smoker Tobacco type: cigarettes Second hand tobacco smoke exposure: Yes Alcohol intake: current Drinks per week: 80 Alcohol use details: 10-15 beers a day. Substance use: never Substance use type: does not use Lack of Transportation: No Lack of Food: Never True Current Housing: I Have Housing Concerned About Future Housing: No Difficulty Paying Gas/Electric Bills: No Difficulty Paying for Meds: No Currently Unemployed: No Education: Decline to Answer Difficulty w/ Childcare or Family Care: No Living arrangements: with family Additional living arrangements comments: Lives in [place] with his brother and [id number]. Four children. Additional occupation/education comments: Currently unemployed. Spiritual care concerns: No Exam Narrative: GENERAL: Well-appearing, well-nourished, and in no acute distress. HEAD: Normocephalic, atraumatic. EYES: PERRLA and EOMI. ENT: Nares clear, no rhinorrhea or epistaxis. Mucous membranes moist. NECK: Supple. CHEST: Diminished breath sounds bilaterally, no wheezing HEART: Regular rate and rhythm. No murmur heard. Normal peripheral pulses. ABDOMEN: Soft, nontender, nondistended, normal active bowel sounds. EXTREMITIES: Normal range of motion. No edema. SKIN: Warm, dry, no rash. NEURO: No focal deficits. Alert and oriented x3. PSYCH: Normal mood and affect. Course Vital Signs Vital signs: Vital Signs Temperature 98.2 F 09/02/22 17:31 Pulse Rate 72 09/02/22 17:31 Respiratory Rate 18 09/02/22 1
[2022-09-02 18:00] LABS: Basophils Absolute Auto 0.1 K/mm3 (0.0-0.1); Eosinophils Absolute Auto 0.1 K/mm3 (0-0.3); Eosinophils Percent Auto 1.1 % (0-4.4); Hematocrit 32.1 % (42.0-52.0); Hemoglobin 10.6 g/dL (14.0-18.0); Immature Granulocyte Absolute 0.02 K/mm3 (0.00-0.031); Immature Granulocyte Percent A 0.3 % (0-0.5); Lymphocytes Absolute Auto 1.42 K/mm3 (0.9-3.2); Lymphocytes Percent Auto 19.5 % (18.3-44.2); Mean Corpuscular Hemoglobin 29.6 pg (26-34); Mean Corpuscular Volume 89.7 fl (80-100); Monocytes Absolute Auto 0.9 K/mm3 (0.1-0.6); Monocytes Percent Auto 12.2 % (2.6-8.5); Neutrophils Absolute Auto 4.8 K/mm3 (1.3-6.7); Neutrophils Percent Auto 65.9 % (45.5-73.1); Platelet Count Result 420 k/mm3 (150-375); Red Blood Count 3.58 M/mm3 (4.6-6.20); Red Cell Distribution Width 16.7 % (11.5-14.5); White Blood Count 7.3 K/mm3 (4.5-10.0)
[2022-09-02 18:10] LABS: Alanine Aminotransferase 20 U/L (6-50); Albumin Level 4.1 g/dL (3.5-5.1); Alkaline Phosphatase 63 U/L (38-126); Anion Gap 7 mmol/L (8-16); Aspartate Amino Transferase 43 U/L (17-59); Bilirubin,Total 0.6 mg/dL (0.2-1.3); Blood Urea Nitrogen 3 mg/dL (9-20); Calcium 8.5 mg/dL (8.4-10.2); Carbon Dioxide 27 mmol/L (22-30); Chloride 93 mmol/L (98-107); Estimated CRCL calculation 137 ml/min; Estimated Glomerular Filt Rate > 60; Glucose 90 mg/dL (65-110); Lipase 101 U/L (23-300); Potassium 3.7 mmol/L (3.4-5.0); Sodium 127 mmol/L (137-145)
[2022-09-02 18:15] LABS: INR 1.1; Partial Thromboplastin Time 24.6 SECONDS (22.3-36.8); Prothrombin Time 13.6 Seconds (11.1-14.7)
[2022-09-02 18:21] LABS: Troponin I < 0.012 ng/mL (0.000-0.034)
[2022-09-02] MEDS: SODIUM CHLORIDE 0.9% IV 1,000 ML 999 ML IV CONT (19:23)
[2022-09-02] MEDS: NICOTINE (*PBKC) 21 MG PATCH 1 PATCH TRANSDERM (19:23)
[2022-09-02] MEDS: ALBUTEROL SULFATE NEB 2.5 MG/3 ML INH 5 MG INHALATION (20:25)
[2022-09-02] MEDS: IPRATROPIUM BR 0.02% INH SOLN 0.5 MG/2.5 ML VIAL INHALATION (20:25)
[2022-09-02 21:03] LABS: Troponin I < 0.012 ng/mL (0.000-0.034)
== END 2022-09-02 21:24 | disposition home or self-care (01) ==
PROVIDERS: Emergency Provider Emergency Medicine; PCP Family Medicine Adolescent Medicine
DX: R07.89 Other chest pain (principal); F17.210 Nicotine dependence, cigarettes, uncomplicated; F41.9 Anxiety disorder, unspecified; D64.9 Anemia, unspecified; I25.10 Atherosclerotic heart disease of native coronary artery without angina pectoris; I10 Essential (primary) hypertension; K21.9 Gastro-esophageal reflux disease without esophagitis
CPT/HCPCS: 36415; 71046; 80053; 83690; 84484; 85025; 85610; 85730; 93005; 94640; 96360; 99284; A9270; J7030